=== PATIENT | female | born 1975 | race Hispanic/Latino ===

== ENCOUNTER 2023-09-28 15:20 | Emergency (ER) | payer MEDICAID, SELFPAY ==
[2023-09-28 15:34] VITALS: BP 132/67; PULSE 83; RESP 16; TEMP 36.3; O2SAT 100
--- NOTE | 2023-09-28 15:46 | ED.URI ---
HPI - URI/Sore Throat General Chief Complaint: Upper Respiratory Infection Stated Complaint: Cough/Fever Time Seen by Provider: 09/28/23 15:46 Source: patient Mode of arrival: ambulatory Limitations: no limitations History of Present Illness HPI Narrative: 47-year-old female presented for complaint of cough, nasal congestion, body aches for about 4 days. Denies shortness of breath, wheezing, nausea, vomiting, diarrhea or lethargy. Endorses son with similar symptoms. Takes occasional Robitussin for symptoms. Related Data Home Medications Medication Instructions Recorded Confirmed empagliflozin 25 mg tablet mg 09/28/23 (Jardiance) ergocalciferol (vitamin D2) 1,250 09/28/23 mcg (50,000 unit) capsule insulin detemir U-100 100 unit/mL unit subcut 09/28/23 (3 mL) subcutaneous pen (Levemir FlexPen) levothyroxine 137 mcg tablet mcg 09/28/23 Allergies Allergy/AdvReac Type Severity Reaction Status Date / Time No Known Allergies Allergy Verified 09/28/23 15:40 Review of Systems Review of Systems: CONSTITUTIONAL: reports body aches, fever, chills EYES: Denies visual changes, redness, or discharge. ENT: Reports rhinorrhea, congestion, denies sore throat, or otalgia. CARDIOVASCULAR: Denies chest pain, palpitations, or edema. RESPIRATORY: Reports cough, denies sob, wheezing. GASTROINTESTINAL: Denies abdominal pain, nausea, vomiting, or diarrhea. SKIN: Denies rash, itching, or wounds. MUSCULOSKELETAL: Denies back pain, joint pain NEUROLOGIC: Denies headache, numbness, tingling, or weakness. All systems reviewed & are unremarkable except as noted in HPI and below PMFSH Past Medical History Medical History (Updated 09/28/23 @ 16:24 by Rachael Sherman APRN) No pertinent past medical history Comments At time of signature, I have reviewed and agree with nursing past medical, surgical, social and family history unless otherwise noted. Please see nursing chart for further information. There is no relevant family history pertinent to the presenting complaint Exam Narrative: GENERAL: Well-appearing, in no acute distress. EYES: EOMI. No redness or drainage. Conjunctivae normal. ENT: Mucous membranes pink and moist. No rhinorrhea. TMs normal bilaterally. Throat normal. Uvula midline. NECK: Normal AROM. Supple. CHEST: No respiratory distress. Lungs clear to all redd. HEART: Regular rate and rhythm. No murmur appreciated. ABDOMEN: Soft, nontender, nondistended, normal active bowel sounds. EXTREMITIES: Normal range of motion. No edema. SKIN: Warm, dry, no rash. Capillary refill normal. Normal skin turgor. NEURO: Alert and oriented x3. Gait steady. PSYCH: Normal affect. Course Course Emergency Course: Patient is aware of diagnosis, understands and agrees to treatment plan. Anticipatory guidance given. Patient agrees to follow-up as directed and is aware of reasons to seek care at the emergency department. Portions of this record may have been created with voice recognition software Level of Care: Express Care Visit Vital Signs Vital signs: Vital Signs Temperature 97.4 F L 09/28/23 15:34 Pulse Rate 83 09/28/23 15:34 Respiratory Rate 16 09/28/23 15:34 Blood Pressure 132/67 09/28/23 15:34 Pulse Oximetry 100 09/28/23 15:34 Oxygen Delivery Room Air 09/28/23 15:34 Temperature 97.4 F L 09/28/23 15:34 Pulse Rate 83 09/28/23 15:34 Respiratory Rate 16 09/28/23 15:34 Blood Pressure 132/67 09/28/23 15:34 Pulse Oximetry 100 09/28/23 15:34 Oxygen Delivery Room Air 09/28/23 15:34 MDM - URI/Sore Throat MDM Narrative Medical decision making narrative: negative COVID, flu, results reviewed with patient. Discussed physical exam findings. Advised supportive measures and signs/symptoms to go to the ER. Pt is appropriate for outpt treatment and f/u. patient is primarily [place] Islander-speaking and requested her daughter translate. Declined mcdonald
== END 2023-09-28 16:40 | disposition home or self-care (01) ==
PROVIDERS: Emergency Provider Nurse Practitioner Family; PCP Physician Assistant
DX: J40 Bronchitis, not specified as acute or chronic (principal); Z79.4 Long term (current) use of insulin; Z79.899 Other long term (current) drug therapy; Z20.822 Contact with and (suspected) exposure to COVID-19
CPT/HCPCS: 87426; 87804; 99213; C9803; G0463

== ENCOUNTER 2023-11-23 16:55 | Emergency (ER) | payer MEDICAID, SELFPAY ==
--- NOTE | ~2023-11-23 | CT_ITS ---
EXAMINATION: CT LE LT wo/w con DATE: 11/23/2023 22:10 INDICATION: One month of left ankle pain and swelling TECHNIQUE: High resolution computed tomography (CT) of the left lower leg from above the knee through the midfoot was performed without and with 100 mL Omnipaque-350 intravenous contrast. Additional sag ittal and coronal reconstructions were performed. Automated exposure control and iterative reconstruc tion technique were employed. The dose-length product was 1922.65 mGy-cm. COMPARISON: None FINDINGS: Bone alignment is normal. No fracture. Joint space at the left knee, ankle, mid and hindfoot are norm al. No cortical erosions or periosteal reaction. No joint effusions or other abnormal fluid collectio ns. No evident stenosis along the left popliteal artery, peroneal trunk, peroneal artery or anterior or posterior tibial arteries with three-vessel runoff below the ankle. No evident venous thrombosis a lthough assessment at the above level of the knee is limited by poor contrast desiccation due to the phase of contrast. Mild subcutaneous about the medial and lateral ankle. There is fusiform thickening of the tibialis anterior tendon at the level of the tibiotalar joint line which suggests tendinopath y and/or tendon tear. Soft tissues and remaining muscles and tendons appear unremarkable. IMPRESSION: 1. Fusiform thickening of the distal tibialis anterior tendon at the level of the tibiotalar joint li ne which is suspicious for tendinopathy and/or tendon tear. Assessment of the tendons is however sign ificantly more limited with CT than MRI which would be recommended for more definitive determination. Reviewed, dictated and finalized at location A. RONMENTAL RESEARCH SCIENTIST IMPRESSION: 1. Fusiform thickening of the distal tibialis anterior tendon at the level of t he tibiotalar joint line which is suspicious for tendinopathy and/or tendon tea r. Assessment of the tendons is however significantly more limited with CT than MRI which would be recommended for more definitive determination.
--- NOTE | ~2023-11-23 | XR_ITS ---
EXAMINATION: XR ankle LT min 3V DATE: 11/23/2023 17:16 INDICATION: Left ankle pain and swelling. TECHNIQUE: 4 views of left ankle were obtained. COMPARISON: None. FINDINGS: Bone alignment is normal. No fracture. There is mild osteoarthritis of talonavicular joint. There is ankle soft tissue swelling. IMPRESSION: 1. No fracture. Reviewed, dictated and finalized at location A. RAL RESOURCES ENGINEER IMPRESSION: 1. No fracture.
[2023-11-23 16:57] VITALS: BP 116/47; PULSE 94; RESP 20; TEMP 36.4; O2SAT 100
[2023-11-23 16:58] VITALS: BP 116/47; PULSE 94; RESP 20; TEMP 36.4; O2SAT 100
[2023-11-23 19:59] VITALS: BP 131/74; PULSE 87; RESP 16; O2SAT 100
[2023-11-23] MEDS: IBUPROFEN 600 MG TABLET PO (20:20)
[2023-11-23] MEDS: HYDROcodone/acetaminophen (*CRX) 5-325 MG TABLET 1 TAB PO (20:24)
--- NOTE | 2023-11-23 20:27 | ED.LOWEXIN ---
HPI - Extremity Injury (Lower) General Chief Complaint: Extremity Injury, Lower Stated Complaint: left foot pain Time Seen by Provider: 11/23/23 19:22 Source: patient and family Limitations: no limitations History of Present Illness HPI Narrative: Patient is a 48-year-old female presents to the emergency department accompanied by her for left ankle pain. Patient states the pain has been present for the past 1 month in the anterior aspect of her left ankle, feels like there is a knot there and is overall feeling throbbing, states she has been trying exercise take Tylenol without any significant relief. Patient with her primary care physician on WednesdayNovember 17 and was sent for x-rays on November 18. Patient denies any history of injuries to this region in the past or any history of this pain in the past. Patient states the pain is worse with flexion or extension of her ankle but denies any pain with eversion or inversion. Patient notes that night she was stretching and felt like she might have heard a pop has been having increased pain and then also noticed this morning and she had a little bit of some bruising around the medial aspect of her left foot. Patient denies any specific injuries. Patient denies numbness, weakness, rash, paresthesia, urinary discomfort, any pain or swelling to any other region. patient denies radiation of the discomfort. Related Data Home Medications Medication Instructions Recorded Confirmed empagliflozin 25 mg tablet mg 09/28/23 (Jardiance) ergocalciferol (vitamin D2) 1,250 09/28/23 mcg (50,000 unit) capsule insulin detemir U-100 100 unit/mL unit subcut 09/28/23 (3 mL) subcutaneous pen (Levemir FlexPen) levothyroxine 137 mcg tablet mcg 09/28/23 Allergies Allergy/AdvReac Type Severity Reaction Status Date / Time No Known Allergies Allergy Verified 09/28/23 15:40 Review of Systems Review of Systems: A 10 system review of systems was completed on the patient and is negative except for what is stated in the HPI. Nursing and ancillary documentation was reviewed. [facility] Past Medical History Medical History (Updated 11/23/23 @ 22:49 by Júnior Ricks DO) No pertinent past medical history Comments At time of signature, I have reviewed and agree with nursing past medical, surgical, social and family history unless otherwise noted. Please see the nursing chart for further information. There is no relevant family history pertinent to the presenting complaint. Exam Narrative: CONST: No acute distress. Well nourished. HENMT: Head is normocephalic and atraumatic. Moist mucous membranes. No posterior oropharynx erythema. EYES: No conjunctival icterus, injection, or pallor. PERRL. NECK: No meningeal signs. RESP: Able to speak in full sentences. Normal respiratory effort. CTAB. CARDIO: Regular rate. Regular rhythm. 2+ DP and radial pulses bilaterally. 2+ PT pulses bilaterally. GI: Nondistended. No tenderness to palpation. Soft. : No CVA tenderness to palpation. SKIN: No rashes or lesions noted on exposed skin. NEURO: Oriented x3. Moves all extremities. EXTREM/MSK/BACK: No pedal edema. Small area of swelling overlying the anterior aspect of the left ankle without warmth or erythema, no palpable fluctuance, no crepitus. Small area of ecchymosis overlying the medial aspect of the left foot. Bilateral lower extremities are without laxity with testing of inversion or eversion of the ankles in addition to anterior drawer tesing. compartments are soft bilaterally. Capillary refill is less than 2 seconds in bilateral lower extremities. Range of motion intact with active and passive range of motion of the bilateral ankles however patient does get discomfort with flexion and extension of the ankle. Patient is able to wiggle all her toes in bilateral lower extremities. Negative Diggs test bilaterally. No bony tenderness to palpa
[2023-11-23 21:07] LABS: Basophils Absolute Auto 0.1 K/mm3 (0.0-0.1); Basophils Percent Auto 0.6 % (0.2-1.2); Eosinophils Absolute Auto 0.4 K/mm3 (0-0.3); Eosinophils Percent Auto 4.8 % (0-4.4); Hematocrit 30.9 % (37.0-47.0); Hemoglobin 9.8 g/dL (12.0-15.0); Immature Granulocyte Absolute 0.01 K/mm3 (0.00-0.031); Immature Granulocyte Percent A 0.1 % (0-0.5); Lymphocytes Absolute Auto 2.85 K/mm3 (0.9-3.2); Lymphocytes Percent Auto 33.6 % (18.3-44.2); Mean Corpuscular HGB Conc 31.7 g/dl (32-36); Mean Corpuscular Hemoglobin 25.5 pg (26-34); Mean Corpuscular Volume 80.5 fl (80-100); Mean Platelet Volume 10.9 fl (7.4-10.4); Monocytes Absolute Auto 0.6 K/mm3 (0.1-0.6); Monocytes Percent Auto 7.6 % (2.6-8.5); Neutrophils Absolute Auto 4.5 K/mm3 (1.3-6.7); Neutrophils Percent Auto 53.3 % (45.5-73.1); Platelet Count Result 265 k/mm3 (150-375); Red Blood Count 3.84 M/mm3 (4.2-5.4); Red Cell Distribution Width 14.4 % (11.5-14.5); White Blood Count 8.5 K/mm3 (4.5-10.0)
[2023-11-23 21:24] LABS: D Dimer 0.95 ug/mL (<0.48)
[2023-11-23 21:39] LABS: Alanine Aminotransferase 34 U/L (6-35); Albumin Level 3.7 g/dL (3.5-5.1); Alkaline Phosphatase 183 U/L (38-126); Anion Gap 4 mmol/L (8-16); Aspartate Amino Transferase 49 U/L (14-36); Bilirubin,Total 0.4 mg/dL (0.2-1.3); Blood Urea Nitrogen 11 mg/dL (7-17); CRP 0.7 mg/dL (<1.0); Calcium 8.7 mg/dL (8.4-10.2); Carbon Dioxide 29 mmol/L (22-30); Chloride 102 mmol/L (98-107); Creatine Kinase 57 U/L (30-135); Estimated CRCL calculation 103 ml/min; Estimated Glomerular Filt Rate > 60; Glucose 159 mg/dL (65-110); Potassium 3.9 mmol/L (3.4-5.0); Sodium 135 mmol/L (137-145)
[2023-11-23 21:47] LABS: SPREG INTERNAL CONTROL Positive; Serum Qual hCG Negative
--- NOTE | 2023-11-23 23:08 | PC.NURSE ---
Pt declined OCL. Dr Ricks at bedside discussing at length pt's options.
--- NOTE | 2023-11-23 23:16 | PC.NURSE ---
Pt demonstrated walking with crutches.
[2023-11-23 23:25] VITALS: BP 132/84; PULSE 68; RESP 14; O2SAT 98
== END 2023-11-23 23:27 | disposition home or self-care (01) ==
PROVIDERS: Emergency Provider Student in an Organized Health Care Education/Training Program; PCP Physician Assistant
DX: M76.812 Anterior tibial syndrome, left leg (principal)
CPT/HCPCS: 36415; 73610; 73702; 80053; 82550; 83605; 84703; 85025; 85380; 86140; 99284; A9270; Q9967

== ENCOUNTER 2024-03-13 16:23 | Emergency (ER) | payer MEDICAID, SELFPAY ==
[2024-03-13 16:31] VITALS: BP 123/67; PULSE 101; RESP 16; TEMP 37.1; O2SAT 100
[2024-03-13 16:35] VITALS: BP 123/67; PULSE 101; RESP 16; TEMP 37.1; O2SAT 100
--- NOTE | 2024-03-13 17:01 | ED.EYEPROB ---
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 Does report some intermittent blurred vision that typically resolves when she washes her face. She has been using some [id number] drops without relief. She does report some allergy symptoms such as congestion, rhinorrhea, sneezing for which she has been taking Benadryl. Related Data Home Medications Medication Instructions Recorded Confirmed ergocalciferol (vitamin D2) 1,250 1,250 mcg DIRECTED 09/28/23 03/13/24 mcg (50,000 unit) capsule insulin detemir U-100 100 unit/mL 100 unit subcut DIRECTED 09/28/23 03/13/24 (3 mL) subcutaneous pen (Levemir FlexPen) levothyroxine 137 mcg tablet 137 mcg DIRECTED 09/28/23 03/13/24 atorvastatin 40 mg tablet 40 mg DIRECTED 03/13/24 03/13/24 Allergies Allergy/AdvReac Type Severity Reaction Status Date / Time No Known Allergies Allergy Verified 03/09/24 15:33 Review of Systems Review of Systems: CONSTITUTIONAL: Denies body aches, fever, chills, or sweats. EYES: + bilateral burning, crusting, itching, redness ENT: Denies sore throat, or otalgia.+ rhinorrhea, congestion, sneezing CARDIOVASCULAR: Denies chest pain, palpitations, or edema. RESPIRATORY: Denies cough or dyspnea. GASTROINTESTINAL: Denies abdominal pain, nausea, vomiting, or diarrhea. GENITOURINARY: Denies dysuria or hematuria. SKIN: Denies rash, itching, or wounds. MUSCULOSKELETAL: Denies back pain, joint pain, or myalgia. NEUROLOGIC: Denies headache, numbness, tingling, or weakness. PSYCH: Denies depression or anxiety. [facility] Past Medical History Medical History No pertinent past medical history Social History Social History Smoking status: Never smoker Comments At time of signature, I have reviewed and agree with nursing past medical, surgical, social and family history unless otherwise noted. Please see nursing chart for further information. There is no relevant family history pertinent to the presenting complaint Exam Narrative: GENERAL: Well-appearing, well-nourished, and in no acute distress. HEAD: Normocephalic, atraumatic. EYES: EOMI. PERRL. Scantly injected conjunctiva bilaterally. No drainage noted. Lids and lashes normal. ENT: Mucous membranes pink and moist. Nares clear. No rhinorrhea. NECK: Normal AROM. CHEST: No respiratory distress. EXTREMITIES: Normal range of motion. No edema. SKIN: Warm, dry, no rash. Capillary refill normal. Normal skin turgor. NEURO: No focal deficits. Alert and oriented x3. Gait steady. PSYCH: Normal affect. No signs of depression or anxiety. Course Course Level of Care: Express Care Visit Vital Signs Vital signs: Vital Signs Temperature 98.7 F 03/13/24 16:31 Pulse Rate 101 H 03/13/24 16:31 Respiratory Rate 16 03/13/24 16:31 Blood Pressure 123/67 03/13/24 16:31 Pulse Oximetry 100 03/13/24 16:31 Oxygen Delivery Room Air 03/13/24 16:31 Temperature 98.7 F 03/13/24 16:35 Pulse Rate 101 H 03/13/24 16:35 Respiratory Rate 16 03/13/24 16:35 Blood Pressure 123/67 03/13/24 16:35 Pulse Oximetry 100 03/13/24 16:35 Oxygen Delivery Room Air 03/13/24 16:35 Reviewed MDM - Eye Problem MDM Narrative Medical decision making narrative: Patient's eye symptoms are likely due to allergic conjunctivitis. Prescription for Zaditor sent to pharmacy. Recommend daily antihistamine instead of Benadryl such as Zyrtec, Claritin, or Radha. Andrew coto
== END 2024-03-13 17:10 | disposition home or self-care (01) ==
PROVIDERS: Emergency Provider Nurse Practitioner; PCP Physician Assistant
DX: H10.33 Unspecified acute conjunctivitis, bilateral (principal); J30.2 Other seasonal allergic rhinitis
CPT/HCPCS: 99213; G0463

== ENCOUNTER 2024-03-22 07:12 | Outpatient (CLI) | payer MEDICAID, SELFPAY ==
--- NOTE | ~2024-03-22 | CT_ITS ---
CT of the Abdomen and Pelvis: Indication: Abdominal pain Technique: 2.5 mm axial scans were obtained through the abdomen and pelvis following intravenous adm inistration of 100 cc of Omnipaque 350. Dose reduction technique was used on this scan by utilizing a utomated exposure control and iterative reconstruction technique. The dose-length product (DLP) was 3 43.75 mGy-cm. Findings: Scans through the lung bases are unremarkable. The liver, spleen, pancreas, gallbladder, adrenals and kidneys are within normal limits. There are at herosclerotic calcifications of the aorta. No lymphadenopathy. No bowel obstruction or bowel wall thickening. There is no evidence to suggest acute appendicitis. Images through the pelvis were performed. Uterine fibroids are present. Urinary bladder unremarkable. No ascites. Impression: Uterine fibroids, otherwise unremarkable exam. Reviewed, dictated and finalized at location M. Impression: Uterine fibroids, otherwise unremarkable exam.
[2024-03-22 07:34] LABS: Estimated Glomerular Filt Rate > 60
== END 2024-03-22 07:13 | disposition home or self-care (01) ==
PROVIDERS: PCP Physician Assistant; Visit Provider Nurse Practitioner
DX: R10.31 Right lower quadrant pain (principal); G89.29 Other chronic pain; D25.9 Leiomyoma of uterus, unspecified
CPT/HCPCS: 74177; Q9967

== ENCOUNTER 2025-01-25 08:30 | Observation (INO) | payer MEDICAID, SELFPAY ==
[2025-01-25] VITALS (14 sets, daily range): BP systolic 113–142; BP diastolic 44–69; PULSE 65–102; RESP 15–20; TEMP 36.3–37.2; O2SAT 96–100; BMI 28.4
--- NOTE | ~2025-01-25 | US_ITS ---
US pelvic complete Ordering provider: Dangelo Nieves MD History: . Severe anemia and h/o fibroids. . Comparison: None. Technique: Transabdominal and endovaginal ultrasound of the pelvis (Doppler ultrasound interrogation techniques used as needed for this exam.) FINDINGS: CERVIX: Normal. UTERUS: Measures 12.2x 5.2x 7.3 cm in length which is within normal limits and is anteverted. Comple x mass is seen which disrupts the endometrial stripe suggestive of a fibroid measuring 3.3 x 3.3 x 4. 2 cm.. ENDOMETRIUM: Normal in thickness measuring 7 mm. No endometrial masses, cysts or fluid. CUL DE SAC: No free fluid. RIGHT OVARY: Not seen. LEFT OVARY: Normal in size measuring 4x 2.5x 2.5 Normal echotexture. Doppler vascular flow present. ADNEXA: Normal. No mass. IMPRESSION: Fibroid uterus. Follow-up advised. Otherwise, normal pelvic ultrasound. Reviewed, dictated and finalized at location A.
--- OUTSIDE RECORDS SUMMARY | 2025-01-25 08:47 | XMS_ITS | Data Portability ---
Author Organization [facility] Address [address] [place] [address] Care Team Providers [facility] Consultant Name Role Phone SHARMAINE BUTLER Primary Care Provider [phone] Assessment Encounter Date Assessment Date Assessment LastModified by Organization Details LastModified Time 03/14/2024 03/14/2024 josy nurse left vm to call back suyapa Not available 03/14/2024 15:25:41 Plan of Treatment Reminders Order Date Submit Date Provider Last Modified By Organization Details Last Modified Time Details Appointments ANY 15 2024 02:45P SYED MALONEY Not available Not available Not available Lab CMP, serum or plasma 2023 024 PAULINO Marie, [address], [place], [address], 05/16/2024 23:07:47 lipid panel, serum 2023 024 PAULINO Marei, [address], [place], [address], 05/16/2024 23:07:46 iron + total iron-bind ing capacity (TIBC), serum 2023 024 PAULINO Marie, [address], [address], [place], [address], 05/17/2024 10:15:21 ferritin, serum or plasma 2023 024 PAULINO Marie, [address], [address], [place], [address], 05/17/2024 10:15:21 CBC w/ auto diff 2023 024 [email or web address] [facility], [address], [address] [address], [place], [address], 05/16/2024 23:07:48 HbA1c (hemoglob in A1c), blood 2023 024 [email or web address] In-Office Order, Internal Use Only DO Not Attach Compendium DO Not Attach Compendium, Do Not Delete/merge, [id number] 03/15/2024 07:37:33 Referral physical therapist referral 2023 024 [facility], [address] [place], [address], 04/17/2024 10:47:58 physical therapist referral 2023 024 [facility], [address] [facility], [place], [address], 02/18/2024 17:16:07 Procedures None recorded. Surgeries None recorded. Imaging None recorded. Medication Orders Jardiance 25 mg tablet 2023 024 [email or web address], [address] [place] [address], [id number], 01/17/2025 17:07:48 ibuprofen 600 mg tablet 2023 024 [email or web address], [address] [place] [address], [id number], 05/18/2024 17:17:34 Kenalog 40 mg/mL suspensio n for injection 2023 024 [email or web address] Not available 04/19/2024 15:09:53 azelastin e 0.05 % eye drops 2023 024 [email or web address], [address] [place] [address], [id number], 03/15/2024 11:24:33 ibuprofen 600 mg tablet 2023 024 [facility], [address] [place], [place], [id number], 02/24/2024 17:10:27 Patient TargetsNo targets recorded. Patient Instructions Encounter Date Encounter Id Patient Instructions Last Modified By Organization Details Last Modified Time 03/14/2024 [id number] A healthy lifestyle: care instructions Not available 03/15/2024 07:39:17 05/15/2024 [id number] A healthy lifestyle: care instructions Not available 05/15/2024 16:07:05 Reason for Referral Physical Therapist Referral for Peroneal tendinitis of left lower limb Referring Physician: Ryann Lomas, Encounter Date: 02/18/2024 Physical Therapist Referral for Peroneal tendinitis of left lower limb Referring Physician: Ryann Lomas, Encounter Date: 03/30/2024 Results Created Date Observation Date Name Description Value Unit Range Abnormal Flag Note LastModifiedBy Organization Detail LastModifiedTime 03/15/2003/15/2024 HbA1c (hemo globi n A1c), blood HbA1c 10.1 Not Available In-Office Order Internal Use Only DO Not Attach Compendium DO Not Attach Compendium, Do Not Delete/merge, [id number] 03/15/2024 07:37:14 04/17/2004/17/2024 Hemog lobin A1c/H emogl obin. total in Blood hemoglobin A1C, POC 11.2 % Hemog lobin A1C, POC 11.2 % Not Available Not Available 01/23/2025 04:20:30 05/15/2005/16/2024 LIPID PANEL cholesterol, total 251 mg/dL 100-19 9 above high normal Not Available [facility] Department [address] [place], [address], 05/16/2024 23:07:46 05/15/20 24 05/16/2024 LIPID PANEL triglyceride s 121 mg/dL 0-149 Not Available [facility] Department [address] [place], [address], 05/16/2024 23:07:46 05/15/20 24 05/16/2024 LIPID PANEL HDL cholesterol 51 mg/dL 40-999 Not Available [facility] Department [address] [place], [address], 05/16/2024 23:07:46 05/15/20 24 05/16/2024 LIPID PANEL VLDL cholesterol jamari 24 mg/dL 5-40 Not Available [facility] Department [address] [place], [address], 05/16/2024 23:07:46 05/15/20 24 05/16/2024 LIPID PANEL LDL chol calc ([facility]) 192 mg/dL 0-99 above high normal Not Available [facility] Department [address] [place], [address], 05/16/2024 23:07:46 05/15/20 24 05/16/2024 COMP. METAB OLIC PANEL (14) glucose 90 mg/dL 70-99 Not Available [facility] Department [address] [place], [address], 05/16/2024 23:07:47 05/15/20 24 05/16/2024 COMP. METAB OLIC PANEL (14) BUN 13 mg/dL 6-24 Not Available [facility] Department [address] [place], [address], 05/16/2024 23:07:47 05/15/20 24 05/16/2024 COMP. METAB OLIC PANEL (14) creatinine 0.76 mg/dL 0.76-1 .27 Not Available [facility] Department [address] [place], [address], 05/16/2024 23:07:47 05/15/20 24 05/16/2024 COMP. METAB OLIC PANEL (14) eGFR 98 >=60 Units for eGFR value s are mL/mi n/1.7 3 The eGFR Calcu latio n has not been valid ated for patie nts under the age of 18. If test resul ts are displ ayed for a patie nt under the age of 18, disre idalia that value . Not Available [facility] Department [address] [place] [address], [address], 05/16/2024 23:07:47 05/15/20 24 05/16/2024 COMP. METAB OLIC PANEL (14) BUN/creatini ne ratio 17 9-23 Not Available [facility] Department [address] [place] [address], [address], 05/16/2024 23:07:47 05/15/20 24 05/16/2024 COMP. METAB OLIC PANEL (14) sodium 137 mmol/ L 134-14 4 Not Available [facility] Department [address] [place] [address], [address], 05/16/2024 23:07:47 05/15/20 24 05/16/2024 COMP. METAB OLIC PANEL (14) potassium 4.7 mmol/ L 3.5-5. 2 Not Available [facility] Department [address] [place] [address], [address], 05/16/2024 23:07:47 05/15/20 24 05/16/2024 COMP. METAB OLIC PANEL (14) chloride 100 mmol/ L 96-106 Not Available [facility] Department [address] [place] [address], [address], 05/16/2024 23:07:47 05/15/20 24 05/16/2024 COMP. METAB OLIC PANEL (14) carbon dioxide, total 24 mmol/ L 20-29 Not Available [facility] Department [address] [place] [address], [address], 05/16/2024 23:07:47 05/15/20 24 05/16/2024 COMP. METAB OLIC PANEL (14) calcium 9.1 mg/dL 8.7-10 .2 Not Available [facility] Department [address] [place], [address], 05/16/2024 23:07:47 05/15/20 24 05/16/2024 COMP. METAB OLIC PANEL (14) protein, total 6.8 g/dL 6.0-8. 5 Not Available [facility] Department [address] [place], [address], 05/16/2024 23:07:47 05/15/20 24 05/16/2024 COMP. METAB OLIC PANEL (14) albumin 4.2 g/dL 3.9-4. 9 Not Available [facility] Department [address] [place], [address], 05/16/2024 23:07:47 05/15/20 24 05/16/2024 COMP. METAB OLIC PANEL (14) globulin, total 2.6 g/dL 1.5-4. 5 Not Available [facility] Department [address] [place], [address], 05/16/2024 23:07:47 05/15/20 24 05/16/2024 COMP. METAB OLIC PANEL (14) A/G ratio 1.6 1.2-2. 2 Not Available [facility] Department [address] [place], [address], 05/16/2024 23:07:47 05/15/20 24 05/16/2024 COMP. METAB OLIC PANEL (14) bilirubin, total 0.2 mg/dL 0.0-1. 2 Not Available [facility] Department [address] [place], [address], 05/16/2024 23:07:47 05/15/20 24 05/16/2024 COMP. METAB OLIC PANEL (14) alkaline phosphatase 195 IU/L 44-121 above high normal Not Available [facility] Department [address] [place], [address], 05/16/2024 23:07:47 05/15/20 24 05/16/2024 COMP. METAB OLIC PANEL (14) AST (SGOT) 25 IU/L 0-40 Not Available [facility] Department [address] [place], [address], 05/16/2024 23:07:47 05/15/20 24 05/16/2024 COMP. METAB OLIC PANEL (14) ALT (SGPT) 23 IU/L 0-32 Not Available [facility] Department [address] [place], [address], 05/16/2024 23:07:47 05/15/20 24 05/16/2024 CBC WITH DIFFE RENTI AL/PL ATELE T WBC 6.9 x10e3 /uL 3.4-10 .8 Not Available [facility] Department [address] [place], [address], 05/16/2024 23:07:48 05/15/20 24 05/16/2024 CBC WITH DIFFE RENTI AL/PL ATELE T RBC 4.23 x10e6 /uL 3.77-5 .28 Not Available [facility] Department [address] [place], [address], 05/16/2024 23:07:48 05/15/20 24 05/16/2024 CBC WITH DIFFE RENTI AL/PL ATELE T hemoglobin 8.9 g/dL 11.1-1 5.9 below low normal Not Available [facility] Department [address] [place], [address], 05/16/2024 23:07:48 05/15/20 24 05/16/2024 CBC WITH DIFFE RENTI AL/PL ATELE T hematocrit 33.3 % 34.0-4 6.6 below low normal Not Available [facility] Department [address] [place], [address], 05/16/2024 23:07:48 05/15/20 24 05/16/2024 CBC WITH DIFFE RENTI AL/PL ATELE T MCV 79 fL 79-97 Not Available [facility] Department [address] [place], [address], 05/16/2024 23:07:48 05/15/20 24 05/16/2024 CBC WITH DIFFE RENTI AL/PL ATELE T MCH 21.0 pg 26.6-3 3.0 below low normal Not Available [facility] Department [address] [place], [address], 05/16/2024 23:07:48 05/15/20 24 05/16/2024 CBC WITH DIFFE RENTI AL/PL ATELE T MCHC 26.7 g/dL 31.5-3 5.7 below low normal Not Available [facility] Department [address] [place], [address], 05/16/2024 23:07:48 05/15/20 24 05/16/2024 CBC WITH DIFFE RENTI AL/PL ATELE T RDW 16.2 % 11.5-1 4.5 above high normal Not Available [facility] Department [address] [place], [address], 05/16/2024 23:07:48 05/15/20 24 05/16/2024 CBC WITH DIFFE RENTI AL/PL ATELE T platelets 326 x10e3 /uL 150-45 0 Not Available [facility] Department [address] [place], [address], 05/16/2024 23:07:48 05/15/20 24 05/16/2024 CBC WITH DIFFE RENTI AL/PL ATELE T neutrophils 61 % notest b. Not Available [facility] Department [address] [place], [address], 05/16/2024 23:07:48 05/15/20 24 05/16/2024 CBC WITH DIFFE RENTI AL/PL ATELE T lymphs 29 % notest b. Not Available [facility] Department [address] [place], [address], 05/16/2024 23:07:48 05/15/20 24 05/16/2024 CBC WITH DIFFE RENTI AL/PL ATELE T monocytes 6 % notest b. Not Available [facility] Department [address] [place], [address], 05/16/2024 23:07:48 05/15/20 24 05/16/2024 CBC WITH DIFFE RENTI AL/PL ATELE T eos 3 % notest b. Not Available [facility] Department [address] [place], [address], 05/16/2024 23:07:48 05/15/20 24 05/16/2024 CBC WITH DIFFE RENTI AL/PL ATELE T basos 1 % notest b. Not Available [facility] Department [address] [place], [address], 05/16/2024 23:07:48 05/15/20 24 05/16/2024 CBC WITH DIFFE RENTI AL/PL ATELE T neutrophils (absolute) 4.2 x10e3 /uL 1.4-7. 0 Not Available [facility] Department [address] [place], [address], 05/16/2024 23:07:48 05/15/20 24 05/16/2024 CBC WITH DIFFE RENTI AL/PL ATELE T lymphs (absolute) 2.0 x10e3 /uL 0.7-3. 1 Not Available [facility] Department [address] [place], [address], 05/16/2024 23:07:48 05/15/20 24 05/16/2024 CBC WITH DIFFE RENTI AL/PL ATELE T monocytes(ab solute) 0.4 x10e3 /uL 0.1-0. 9 Not Available [facility] Department [address] [place], [address], 05/16/2024 23:07:48 05/15/20 24 05/16/2024 CBC WITH DIFFE RENTI AL/PL ATELE T eos (absolute) 0.2 x10e3 /uL 0.0-0. 4 Not Available [facility] Department [address] [place], [address], 05/16/2024 23:07:48 05/15/20 24 05/16/2024 CBC WITH DIFFE RENTI AL/PL ATELE T baso (absolute) 0.1 x10e3 /uL 0.0-0. 2 Not Available [facility] Department [address] [place], [address], 05/16/2024 23:07:48 05/15/20 24 05/16/2024 CBC WITH DIFFE RENTI AL/PL ATELE T immature granulocytes 0.1 % notest b. Not Available [facility] Department [address] [place], [address], 05/16/2024 23:07:48 05/15/20 24 05/16/2024 CBC WITH DIFFE RENTI AL/PL ATELE T immature grans (abs) 0.0 x10e3 /uL 0.0-0. 1 Not Available [facility] Department [address] [place], [address], 05/16/2024 23:07:48 05/15/20 24 05/16/2024 CBC WITH DIFFE RENTI AL/PL ATELE T NRBC 0 % 0-0 Not Available [facility] Department [address] [place], [address], 05/16/2024 23:07:48 05/15/20 24 05/17/2024 IRON AND TIBC iron bind.cap.(TI BC) 458 ug/dL 250-45 0 above high normal Not Available [facility] ([facility]) [address] [facility], [place], [address], 05/17/2024 10:15:21 05/15/20 24 05/17/2024 IRON AND TIBC UIBC 445 ug/dL 131-42 5 above high normal Not Available [facility] ([facility]) [address] [place], [address], 05/17/2024 10:15:21 05/15/20 24 05/17/2024 IRON AND TIBC iron 13 ug/dL 27-159 below low normal Not Available [facility] ([facility]) [address] [place], [address], 05/17/2024 10:15:21 05/15/20 24 05/17/2024 IRON AND TIBC iron saturation 3 % 15-55 alert low Not Available [facility] ([facility]) [address] [place], [address], 05/17/2024 10:15:21 05/15/20 24 05/17/2024 ARNULFO TIN ferritin 6 NG/mL 15-150 below low normal Not Available [facility] ([facility]) [address] [place], [address], 05/17/2024 10:15:21 01/24/20 25 01/24/2025 LIPID PANEL cholesterol, total 201 mg/dL 100-19 9 above high normal Not Available [facility] Department [address] [place], [address], 01/24/2025 23:11:32 01/24/20 25 01/24/2025 LIPID PANEL triglyceride s 316 mg/dL 0-149 above high normal Not Available [facility] Department [address] [place], [address], 01/24/2025 23:11:32 01/24/20 25 01/24/2025 LIPID PANEL HDL cholesterol 39 mg/dL 40-999 below low normal Not Available [facility] Department [address] [place], [address], 01/24/2025 23:11:32 01/24/20 25 01/24/2025 LIPID PANEL VLDL cholesterol jamari 63 mg/dL 5-40 above high normal Not Available [facility] Department [address] [place] [address], [address], 01/24/2025 23:11:32 01/24/20 25 01/24/2025 LIPID PANEL LDL chol calc (nih) 146 mg/dL 0-99 above high normal Not Available [facility] Department [address] [place] [address], [address], 01/24/2025 23:11:32 01/24/20 25 01/24/2025 COMP. METAB OLIC PANEL (14) glucose 199 mg/dL 70-99 above high normal Not Available [facility] Department [address] [place] [address], [address], 01/24/2025 23:11:33 01/24/20 25 01/24/2025 COMP. METAB OLIC PANEL (14) BUN 17 mg/dL 6-24 Not Available [facility] Department [address] [place] [address], [address], 01/24/2025 23:11:33 01/24/20 25 01/24/2025 COMP. METAB OLIC PANEL (14) creatinine 0.66 mg/dL 0.76-1 .27 below low normal Not Available [facility] Department [address] [place] [address], [address], 01/24/2025 23:11:33 01/24/20 25 01/24/2025 COMP. METAB OLIC PANEL (14) eGFR 109 >=60 Units for eGFR value s are mL/mi n/1.7 3 The eGFR Calcu latio n has not been valid ated for patie nts under the age of 18. If test resul ts are displ ayed for a patie nt under the age of 18, disre idalia that value . Not Available [facility] Department [address] [place] [address], [address], 01/24/2025 23:11:33 01/24/20 25 01/24/2025 COMP. METAB OLIC PANEL (14) BUN/creatini ne ratio 26 9-23 above high normal Not Available [facility] Department [address] [place], [address], 01/24/2025 23:11:33 01/24/20 25 01/24/2025 COMP. METAB OLIC PANEL (14) sodium 135 mmol/ L 134-14 4 Not Available [facility] Department [address] [place], [address], 01/24/2025 23:11:33 01/24/20 25 01/24/2025 COMP. METAB OLIC PANEL (14) potassium 3.8 mmol/ L 3.5-5. 2 Not Available [facility] Department [address] [place] [address], [address], 01/24/2025 23:11:33 01/24/20 25 01/24/2025 COMP. METAB OLIC PANEL (14) chloride 99 mmol/ L 96-106 Not Available [facility] Department [address] [place], [address], 01/24/2025 23:11:33 01/24/20 25 01/24/2025 COMP. METAB OLIC PANEL (14) carbon dioxide, total 20 mmol/ L 20-29 Not Available [facility] Department [address] [place], [address], 01/24/2025 23:11:33 01/24/20 25 01/24/2025 COMP. METAB OLIC PANEL (14) calcium 8.9 mg/dL 8.7-10 .2 Not Available [facility] Department [address] [place], [address], 01/24/2025 23:11:33 01/24/20 25 01/24/2025 COMP. METAB OLIC PANEL (14) protein, total 6.9 g/dL 6.0-8. 5 Not Available [facility] Department [address] [place], [address], 01/24/2025 23:11:33 01/24/20 25 01/24/2025 COMP. METAB OLIC PANEL (14) albumin 4.2 g/dL 3.9-4. 9 Not Available [facility] Department [address] [place], [address], 01/24/2025 23:11:33 01/24/20 25 01/24/2025 COMP. METAB OLIC PANEL (14) globulin, total 2.7 g/dL 1.5-4. 5 Not Available [facility] Department [address] [place], [address], 01/24/2025 23:11:33 01/24/20 25 01/24/2025 COMP. METAB OLIC PANEL (14) A/G ratio 2.0 1.2-2. 2 Not Available [facility] Department [address] [place], [address], 01/24/2025 23:11:33 01/24/20 25 01/24/2025 COMP. METAB OLIC PANEL (14) bilirubin, total 0.3 mg/dL 0.0-1. 2 Not Available [facility] Department [address] [place], [address], 01/24/2025 23:11:33 01/24/20 25 01/24/2025 COMP. METAB OLIC PANEL (14) alkaline phosphatase 198 IU/L 44-121 above high normal Not Available [facility] Department [address] [place], [address], 01/24/2025 23:11:33 01/24/20 25 01/24/2025 COMP. METAB OLIC PANEL (14) AST (SGOT) 26 U/L 0-40 Not Available [facility] Department [address] [place], [address], 01/24/2025 23:11:33 01/24/20 25 01/24/2025 COMP. METAB OLIC PANEL (14) ALT (SGPT) 19 IU/L 0-32 Not Available [facility] Department [address] [place], [address], 01/24/2025 23:11:33 01/24/2001/25/2025 CBC WITH DIFFE RENTI AL/PL ATELE T WBC 8.0* x10e3 /uL 3.4-10 .8 Not Available [facility] Department [address] [place], [address], 01/25/2025 00:12:05 01/24/2001/25/2025 CBC WITH DIFFE RENTI AL/PL ATELE T RBC 4.33* x10e6 /uL 3.77-5 .28 Not Available [facility] Department [address] [place], [address], 01/25/2025 00:12:05 01/24/2001/25/2025 CBC WITH DIFFE RENTI AL/PL ATELE T hemoglobin 7.0* g/dL 11.1-1 5.9 panic low RESUL TS VERIF IED AND GROSSMAN D TO DR SIDDIQI SHARMAINE BY Carmenza Elmore i, MLT AT 2156 ON 01/24. Not Available [facility] Department [address] [place], [address], 01/25/2025 00:12:05 01/24/2001/25/2025 CBC WITH DIFFE RENTI AL/PL ATELE T hematocrit 27.9* % 34.0-4 6.6 below low normal Not Available [facility] Department [address] [place], [address], 01/25/2025 00:12:05 01/24/2001/25/2025 CBC WITH DIFFE RENTI AL/PL ATELE T MCV 64* fL 79-97 below low normal Not Available [facility] Department [address] [place], [address], 01/25/2025 00:12:05 01/24/2001/25/2025 CBC WITH DIFFE RENTI AL/PL ATELE T MCH 16.2* pg 26.6-3 3.0 below low normal Not Available [facility] Department [address] [place], [address], 01/25/2025 00:12:05 01/24/2001/25/2025 CBC WITH DIFFE RENTI AL/PL ATELE T MCHC 25.1* g/dL 31.5-3 5.7 below low normal Not Available [facility] Department [address] [place], [address], 01/25/2025 00:12:05 01/24/2001/25/2025 CBC WITH DIFFE RENTI AL/PL ATELE T RDW 21.1* % 11.5-1 4.5 above high normal Not Available [facility] Department [address] [place], [address], 01/25/2025 00:12:05 01/24/2001/25/2025 CBC WITH DIFFE RENTI AL/PL ATELE T platelets 263* x10e3 /uL 150-45 0 Not Available [facility] Department [address] [place], [address], 01/25/2025 00:12:05 01/24/2001/25/2025 CBC WITH DIFFE RENTI AL/PL ATELE T neutrophils 65* % notest b. Not Available [facility] Department [address] [place], [address], 01/25/2025 00:12:05 01/24/2001/25/2025 CBC WITH DIFFE RENTI AL/PL ATELE T lymphs 26* % notest b. Not Available [facility] Department [address] [place], [address], 01/25/2025 00:12:05 01/24/2001/25/2025 CBC WITH DIFFE RENTI AL/PL ATELE T monocytes 5* % notest b. Not Available [facility] Department [address] [place], [address], 01/25/2025 00:12:05 01/24/2001/25/2025 CBC WITH DIFFE RENTI AL/PL ATELE T eos 3* % notest b. Not Available [facility] Department [address] [place], [address], 01/25/2025 00:12:05 01/24/2001/25/2025 CBC WITH DIFFE RENTI AL/PL ATELE T basos 1* % notest b. Not Available [facility] Department [address] [place], [address], 01/25/2025 00:12:05 01/24/2001/25/2025 CBC WITH DIFFE RENTI AL/PL ATELE T neutrophils (absolute) 5.2* x10e3 /uL 1.4-7. 0 Not Available [facility] Department [address] [place], [address], 01/25/2025 00:12:05 01/24/2001/25/2025 CBC WITH DIFFE RENTI AL/PL ATELE T lymphs (absolute) 2.1* x10e3 /uL 0.7-3. 1 Not Available [facility] Department [address] [place], [address], 01/25/2025 00:12:05 01/24/2001/25/2025 CBC WITH DIFFE RENTI AL/PL ATELE T monocytes(ab solute) 0.4* x10e3 /uL 0.1-0. 9 Not Available [facility] Department [address] [place], [address], 01/25/2025 00:12:05 01/24/2001/25/2025 CBC WITH DIFFE RENTI AL/PL ATELE T eos (absolute) 0.3* x10e3 /uL 0.0-0. 4 Not Available [facility] Department [address] [place], [address], 01/25/2025 00:12:05 01/24/20 25 01/25/2025 CBC WITH DIFFE RENTI AL/PL ATELE T baso (absolute) 0.1* x10e3 /uL 0.0-0. 2 Not Available [facility] Department [address] [place], [address], 01/25/2025 00:12:05 01/24/20 25 01/25/2025 CBC WITH DIFFE RENTI AL/PL ATELE T immature granulocytes 0.2* % notest b. Not Available [facility] Department [address] [place], [address], 01/25/2025 00:12:05 01/24/20 25 01/25/2025 CBC WITH DIFFE RENTI AL/PL ATELE T immature grans (abs) 0.0* x10e3 /uL 0.0-0. 1 Not Available [facility] Department [address] [place], [address], 01/25/2025 00:12:05 01/24/20 25 01/25/2025 CBC WITH DIFFE RENTI AL/PL ATELE T NRBC 0* % 0-0 Not Available [facility] Department [address] [place], [address], 01/25/2025 00:12:05 01/24/2001/23/2025 HbA1c (hemo globi n A1c), blood HbA1c 9.0 Not Available In-Office Order Internal Use Only DO Not Attach Compendium DO Not Attach Compendium, Do Not Delete/merge, [id number] 01/23/2025 16:16:43 03/22/20 24 03/22/2024 CT, abdom en + pelvi s, w/ contr ast No observ ation record ed. [address] [facility] [address], [place], [address], 03/23/2024 12:32:26 Result Notes None recorded. Problems Name Problem SNOMED Code Status Onset Date Resolution Date Notes Provider Name and Address Organization Details Recorded Time Mass of left breast [id number] [id number] Completed 201709/22/2018 JESSICA Castillo NP Attn: Accounting ,[address] [facility], [place], [address] , [facility] 8 14:22:16 Mammogra phy abnormal [id number] Completed 09/22/2018 JESSICA Castillo NP Attn: Accounting ,[address] [place], [address] , [facility] 8 14:21:56 Acute sinusiti s [id number] Completed 09/20/2018 JESSICA Castillo NP Attn: Accounting ,[address] [place], [address] , [facility] 8 11:33:52 Uncontro lled type 1 diabetes mellitus 515447474 Completed 09/20/2018 JESSICA Castillo NP Attn: Accounting ,[address] [place], [address] , [facility] 8 11:39:44 Pain of left ankle joint [id number] Active 2023 SYED RICE Attn: Accounting ,[address] [facility], [place], [address] , [place] [facility] 4 08:35:45 Colonosc opy Active 2023 needs repeat in 2028 SYED RICE Attn: Accounting ,[address] [place], [address] , [place] [facility] 4 15:36:32 Insulin treated type 2 diabetes mellitus [id number] Active 2023 SYED RICE Attn: Accounting ,[address] [place], [address] , [place] [facility] 4 12:05:24 Iron deficien cy anemia [id number] Active 2023 resolved SYED RICE Attn: Accounting ,[address] [place], [address] , [facility] 4 16:22:58 Menorrha ayesha [id number] Active 2023 SYED RICE Attn: Accounting ,[address] [place], [address] , [facility] 4 16:23:21 Allergic rhinitis [id number] Completed 09/22/2018 JESSICA Castillo NP Attn: Accounting ,[address] [place], [address] , [facility] 8 14:22:00 Missed period [id number] Completed 09/20/2018 JESSICA Castillo NP Attn: Accounting ,[address] [place], [address] , [facility] 8 11:34:08 Milk of calcium calcific ation 147896574 Completed 09/20/2018 JESSICA Castillo NP Attn: Accounting ,[address] [place], [address] , [place] [facility] 8 11:34:02 Milk of calcium calcific ation 730654156 Completed Darshana Gustafson PA-C Attn: Accounting ,[address] [place], [address] , [place] [facility] 6 10:02:22 Disorder of thyroid gland 48677075 Completed Darshana Gustafson PA-C Attn: Accounting ,[address] [place], [address] , [place] [facility] 6 10:02:22 Hyperlip idemia 28665949 Completed Darshana Gustafson PA-C Attn: Accounting ,[address] [place], [address] , [place] [facility] 6 10:02:22 Thyroid nodule 462331371 Completed Darshana Gustafson PA-C Attn: Accounting ,[address] [facility], [place], [address] , [facility] 6 10:02:22 Uncontro lled type 1 diabetes mellitus 124751218 Completed Darshana Gustafson PA-C Attn: Accounting ,[address] [facility], [place], [address] , [facility] 6 10:02:23 Candidia sis 56898597 Completed 09/22/2018 JESSICA Castillo NP Attn: Accounting ,[address] [facility], [place], [place], [address] [place] [address] , [facility] 8 14:22:06 Candidia sis 03484991 Completed Darshana Gustafson PA-C Attn: Accounting ,[address] [facility], [place], [place], [address] [place] [address] , [facility] 6 10:02:23 Constipa tion 43839863 Completed 09/22/2018 JESSICA Castillo NP Attn: Accounting ,[address] [facility], [place], [place], [address] [place] [address] , [facility] 8 14:21:54 Constipa tion 30728105 Completed Darshana Gustafson PA-C Attn: Accounting ,[address] [facility], [place], [place], [address] [place] [address] , [facility] 6 10:02:22 Diabetes mellitus 17410738 Active Darshana Gustafson PA-C Attn: Accounting ,[address] [facility], [place], [address] , [facility] 6 14:31:38 Diabetes mellitus 98677581 Completed Darshana Gustafson PA-C Attn: Accounting ,[address] [facility], [place], [address] , [facility] 6 10:02:22 Hypothyr oidism 97132939 Active Darshana Gustafson PA-C Attn: Accounting ,[address] [facility], [place], [place], [address] [place] [address] , [place] [facility] 6 10:02:22 Hypothyr oidism 02588448 Completed Darshana Gustafson PA-C Attn: Accounting ,[address] [facility], [place], [address] [place] [address] , [place] [facility] 6 10:02:22 Vitamin D deficien cy 13578960 Active Darshana Gustafson PA-C Attn: Accounting ,[address] [facility], [place], [place], [address] [place] [address] , [place] [facility] 6 10:02:23 Vitamin D deficien cy 63033487 Completed Darshana Gustafson PA-C Attn: Accounting ,[address] [facility], [place], [address] [place] [address] , [place] [facility] 6 10:02:23 Hypereme sis 901489920 Completed 09/22/2018 JESSICA Castillo NP Attn: Accounting ,[address] [facility], [place], [address] [place] [address] , [place] [facility] 8 14:22:03 Hypereme sis 132970761 Completed Darshana Gustafson PA-C Attn: Accounting ,[address] [facility], [place], [address] [place] [address] , [place] [facility] 6 10:02:22 Type 1 diabetes mellitus 78805153 Completed 09/20/2018 JESSICA Castillo NP Attn: Accounting ,[address] [facility], [place], [address] [place] [address] , [place] [facility] 8 11:39:47 Type 1 diabetes mellitus 58628863 Completed Darshana Gustafson PA-C Attn: Accounting ,[address] [facility], [place], [address] [place] [address] , [place] [facility] 6 10:02:22 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 Darshana Gustafson PA-C Attn: Accounting ,[address] [facility], [place], [address] [place] [address] , [place] [facility] 6 15:40:51 Papillar y thyroid carcinom a 784312280 Completed Darshana Gustafson PA-C Attn: Accounting ,[address] [place], [address] , [facility] 6 10:02:23 Menorrha ayesha [id number] Completed 09/22/2018 SYED RICE Attn: Accounting ,[address] [place], [address] , [facility] 4 16:23:21 Menorrha ayesha [id number] Completed Darshana Gustafson PA-C Attn: Accounting ,[address] [place], [address] , [facility] 6 10:02:23 Disorder of thyroid gland 98604129 Completed 09/22/2018 JESSICA Castillo NP Attn: Accounting ,[address] [place], [address] , [facility] 8 14:22:14 Hyperlip idemia 83564978 Active Darshana Gustafson PA-C Attn: Accounting ,[address] [place], [address] , [facility] 6 10:02:22 Iron deficien cy anemia 69362520 Completed 09/22/2018 resolved SYED RICE Attn: Accounting ,[address] [place], [address] , [facility] 4 16:22:58 Thyroid nodule 429141927 Active Darshana Gustafson PA-C Attn: Accounting ,[address] [place], [address] , [facility] 6 10:02:22 Problem Notes None recorded. Procedures Surgical History Date Name Laterality Status Provider Name and Address Organization Details Recorded Time 4 Injection completed LEONARDO KAUFMAN DPM [address] [place], [address], [facility] 04/07/2024 17:38:06 4 Date of Last Mammogram completed Rachael Can MA [facility] 12/27/2023 15:24:16 2 Date of Last Pap Smear completed Rachael Can MA [facility] 12/27/2023 15:23:55 8 Caesarean Section completed Sheron Robbins MA [facility] 06/05/2015 11:08:33 6 Caesarean Section completed Sheron Robbins [place] [facility] 06/05/2015 11:08:33 4 Caesarean Section completed Sheron Robbins [place] [facility] 06/05/2015 11:08:33 Tubal Ligation completed Theresa Candelaria MD Attn: Accounting,[address] [place], [address], [facility] 07/19/2018 16:03:43 Imaging Results Imaging Date Name Status LastModified by Organiz ation Details LastModified Time 03/22/2024 CT, abdomen + pelvis, w/ contrast completed [address], [place], [address], 03/23/2024 12:32:26 Procedure Notes None recorded. Medical Equipment None Reported. Allergies Allergen ID Allergen Name Allergen Category Reaction Reaction Severity Criticality Documentation Date Start Date Code Code System Note Provider Name and Address Organization Details Recorded Time 931030 peanut allergeni c extract food,medi cation Not available Not available Not available 11/27/2022 68245 8 RxNorm Not Available Not Available Not Available Medications Name Sig Start Date Stop Date Status Note LastModified by Organization Details LastModified Time Miralax 17 gram/dose oral powder In a pitcher, mix entire bottle of Miralax in one 64 ounce bottle of yellow or green Gatorade. Beginning at 5:00 PM the evening before the colonosco py, drink 1 8-ounce glass every 15 minutes until completed . Drink 4 glasses of water after finishing this mixture 2022 active Not Available Not Available Not Avai lable atorvastati n 40 mg tablet TAKE ONE TABLET BY MOUTH ONCE DAILY AT BEDTIME FOR CHOLESTER OL active Not Available Not Available No t Available Augmentin 875 mg-125 mg tablet Take 1 tablet twice a day by oral route for 7 days. 2014 active Not Available Not Available Not Avai lable levothyroxi ne 137 mcg tablet TAKE ONE TABLET BY MOUTH EVERY MORNING FOR THYROID active Not Available Not Available No t Available azelastine 0.05 % eye drops INSTILL 1 DROP INTO AFFECTED EYE(S) BY OPHTHALMI C ROUTE 2 TIMES PER DAY 2023 active Not Available Not Available Not Avai lable atorvastati n 20 mg tablet Take 1 tablet every day by oral route for 90 days. 11/28 completed Not Available Not Available Not Available atorvastati n 10 mg tablet Take 1 tablet every day by oral route. 11/04 completed Not Available Not Available Not Available glyburide 5 mg tablet Take 1 tablet twice a day by oral route. 05/18 completed Not Available Not Available Not Available nystatin 100,000 unit/gram topical ointment APPLY TO THE AFFECTED AREA(S) BY TOPICAL ROUTE 2 TIMES PER DAY 2020 active Not Available Not Available Not Avai lable fluconazole 150 mg tablet Take 1 tablet every week by oral route for 21 days. 03/20 completed Not Available Not Available Not Available fluconazole 200 mg tablet Take 1 tablet every week by oral route. 03/20 completed Not Available Not Available Not Available prednisone 20 mg tablet TAKE TWO TABLETS BY MOUTH DAILY FOR FIVE DAYS 11/17 completed Not Available Not Available Not Available metformin 850 mg tablet Take 1 tablet twice a day by oral route. 2014 active Not Available Not Available Not Avai lable Lantus U-100 Insulin 100 unit/mL subcutaneou s solution Inject 25 units by subcutane ous route daily 01/27 completed Not Available Not Available Not Available Flonase 50 mcg/actuati on nasal spray,suspe nsion Inhale 1 spray twice a day by intranasa l route. 2014 active Not Available Not Available Not Avai lable Terazol 3 0.8 % vaginal cream Insert 1 applicato rful every day by vaginal route for 3 days. 2014 active Not Available Not Available Not Avai lable Kenalog 40 mg/mL suspension for injection Take 0.25 mL by injection route. 2023 active Not Available Not Available Not Avai lable Vitamin tablet Take 1 tablet every day by oral route as directed for 90 days. 2014 active Not Available Not Available Not Avai lable Zofran 4 mg tablet Take 1 tablet every 8 hours by oral route as needed for 2 days. 2014 active Not Available Not Available Not Avai lable Humalog U-100 Insulin 100 unit/mL subcutaneou s solution 01/27 completed Not Available Not Available Not Available Flagyl 500 mg tablet Take 1 tablet twice a day by oral route for 7 days. 09/20 completed Not Available Not Available Not Available metformin 1,000 mg tablet Take 1 tablet twice a day by oral route. 07/11 completed Not Available Not Available Not Available levothyroxi ne 125 mcg tablet TAKE 1 TABLET BY MOUTH DAILY 07/01 completed Not Available Not Available Not Available nystatin 100,000 unit/gram topical cream APPLY TO THE AFFECTED AREA(S) BY TOPICAL ROUTE 2 TIMES PER DAY 03/20 completed Not Available Not Available Not Available levothyroxi ne 150 mcg tablet Take 1 tablet every day by oral route in the morning. 04/14 completed Not Available Not Available Not Available Humulin N NPH U-100 Insulin (isophane susp) 100 unit/mL subcutaneou s 01/27 completed Not Available Not Available Not Available hydroxyzine HCl 25 mg tablet TAKE ONE TABLET BY MOUTH TWICE DAILY NEEDED active Not Available Not Available No t Available ergocalcife rol (vitamin D2) 1,250 mcg (50,000 unit) capsule TAKE ONE CAPSULE BY MOUTH ONCE A WEEK ON THE SAME DAY EACH WEEK FOR VITAMIN D DEFICIENC Y active Not Available Not Available No t Available ibuprofen 600 mg tablet TAKE ONE TABLET BY MOUTH THREE TIMES DAILY, IN THE MORNING, AT MID-DAY & AT BEDTIME NEEDED FOR PAIN active Not Available Not Available No t Available lovastatin 20 mg tablet Take 1 tablet every day by oral route in the evening. 2014 active Not Available Not Available Not Avai lable albuterol sulfate HFA 90 mcg/actuati on aerosol inhaler INHALE TWO PUFFS BY MOUTH FOUR TIMES DAILY NEEDED active Not Available Not Available No t Available insulin syringe U-100 with needle 0.5 mL 31 gauge x 5/16 active Not Available Not Available Not Available glipizide 5 mg tablet Take 1 tablet every day by oral route in the morning. 2014 active Not Available Not Available Not Avai lable metoclopram rocky 10 mg tablet Take 1 tablet 4 times a day by oral route. 05/18 completed Not Available Not Available Not Available Dulcolax (bisacodyl) 5 mg tablet,iris yed release At 2:00 PM the day before the colonosco py, take all 4 tablets of Dulcolax by mouth at one time with 8 ounces of water 2022 active Not Available Not Available Not Avai lable Novolog FlexPen U-100 Insulin aspart 100 unit/mL (3 mL) subcutaneou s INJECT THREE UNITS UNDER THE SKIN PER MEAL plus sliding scale correctio n. Max daily DOSE 20 units active Not Available Not Available No t Available Levemir U-100 Insulin 100 unit/mL subcutaneou s solution Inject 35 units twice a day by subcutane ous route. 2020 active Not Available Not Available Not Avai lable Levemir FlexPen 100 unit/mL (3 mL) solution subcutaneou s insulin pen INJECT 35 UNITS UNDER THE SKIN TWICE DAILY EVERY MORNING AND AT BEDTIME active Not Available Not Available No t Available Januvia 100 mg tablet Take 1 tablet every day by oral route for 30 days. 07/11 completed Not Available Not Available Not Available Sure Comfort Pen Needle 31 gauge x 3/16 USE TO INJECT INSULIN FIVE TIMES DAILY active Not Available Not Available No t Available FeroSul 325 mg (65 mg iron) tablet TAKE ONE TABLET BY MOUTH EVERY DAY active Not Available Not Available No t Available Lantus Solostar U-100 Insulin 100 unit/mL (3 mL) subcutaneou s pen INJECT 38 UNITS UNDER THE SKIN TWICE DAILY EVERY MORNING AND EVERY EVENING FOR DIABETES 2024 active Not Available Not Available Not Avai lable Humalog KwikPen (U-100) Insulin 100 unit/mL subcutaneou s INJECT FIVE UNITS UNDER THE SKIN 15 MINUTES BEFORE MEALS 2023 active Not Available Not Available Not Avai lable levothyroxi ne 137 mcg capsule Take 1 capsule every day by oral route for 30 days. 08/12 completed Not Available Not Available Not Available calcium 600 mg (as carbonate)- vitamin D3 20 mcg (800 unit) tablet Take 1 tablet twice a day by oral route for 30 days. 2014 active Not Available Not Available Not Avai lable Linzess 145 mcg capsule Take 1 capsule every day by oral route for 30 days. 2014 active Not Available Not Available Not Avai lable Farxiga 10 mg tablet Take 1 tablet every day by oral route for 30 days. 07/11 completed Not Available Not Available Not Available Jardiance 25 mg tablet Take 1 tablet every day by oral route for 90 days. 2024 active Not Available Not Available Not Avai lable TRUEplus Pen Needle 31 gauge x 1/4 USE DIRECTED TWO TIMES A DAY active Not Available Not Available No t Available ID NOW COVID-19 Test Kit DIRECTED active Not Available Not Available No t Available FreeStyle Darlyn 3 Sensor device USE TO CHECK BLOOD SUGAR. CHANGE EVERY 14 DAYS active Not Available Not Available No t Available Vitals Date Recorded Body height Body mass index (BMI) Body weight Heart rate Body temperature Pain severity - 0-10 verbal numeric rating [Score] - Reported Systolic blood pressure Diastolic blood pressure Provider Name and Address Organization Details Last Updated DateTime 4 155.58 cm 27.9 kg/m2 75933.2 6 g 86 /min 97.7 [degF] 7 131 mm[Hg] 75 mm[Hg] Denver Mcgraw MA [facility] 4 16:33:33 Date Recorded Body height Body mass index (BMI) Body weight Heart rate Oxygen saturation Oxygen saturation in Arterial blood by Pulse oximetry Systolic blood pressure Diastolic blood pressure Provider Name and Address Organization Details Last Updated DateTime 4 155.58 cm 27.8 kg/m2 39017.4 7 g 102 /min 99 % 99 % 118 mm[Hg] 75 mm[Hg] Rachael Can MA [facility] 4 14:40:42 Date Recorded Body height Body mass index (BMI) Body weight Heart rate Body temperature Systolic blood pressure Diastolic blood pressure Provider Name and Address Organization Details Last Updated DateTime 4 155.58 cm 27.7 kg/m2 22332.6 7 g 102 /min 97.8 [degF] 132 mm[Hg] 52 mm[Hg] Vanessa GrantTAM [facility] 4 15:58:03 Date Recorded Body height Body mass index (BMI) Body weight Heart rate Oxygen saturation Oxygen saturation in Arterial blood by Pulse oximetry Systolic blood pressure Diastolic blood pressure Provider Name and Address Organization Details Last Updated DateTime 4 155.58 cm 27.9 kg/m2 98340.2 6 g 97 /min 99 % 99 % 98 mm[Hg] 66 mm[Hg] Rachael Can MA [facility] 4 15:55:49 Date Recorded Body height Body mass index (BMI) Body weight Heart rate Oxygen saturation Oxygen saturation in Arterial blood by Pulse oximetry Systolic blood pressure Diastolic blood pressure Provider Name and Address Organization Details Last Updated DateTime 5 155.58 cm 28.5 kg/m2 86571.0 4 g 103 /min 99 % 99 % 136 mm[Hg] 82 mm[Hg] Rachael Can MA [facility] 5 16:12:27 Social History Question Answer Notes LastModified by Organizat ion Details LastModified Time Tobacco Smoking Status Current Some Day Smoker Rachael Can MA null, [facility] 03/18/2021 15:26:36 Do You Have An Advance Directive? No Information not available 04/04/2015 What Is Your Level Of Alcohol Consumption? None Information not available 09/27/2014 If You Are , What Was Your Level Of Alcohol Consumption Prior To ? None Information not available 04/04/2015 How Many Years Have You Consumed Alcohol? 0 Information not available 04/04/2015 Is Anesthesia Consult Planned? No Information not available 04/04/2015 Plan No Information no t available 04/04/2015 Is Blood Transfusion Acceptable In An Emergency? Yes Information not available 04/04/2015 What Is Your Level Of Caffeine Consumption? Occasional Information not available 09/27/2014 Live With Cats/exposure To Cat Litter No Information not available 04/04/2015 How Much Tobacco Do You Chew? None Information not available 04/04/2015 In The 14 Days Before Symptom Onset, Have You Had Close Contact With A Laboratory-confir med COVID-19 While That Case Was Ill? No Information not available 03/18/2021 In The 14 Days Before Symptom Onset, Have You Had Close Contact With A Person Who Is Under Investigation For COVID-19 While That Person Was Ill? No Information not available 03/18/2021 Have You Been To An Area Known To Be High Risk For COVID-19? No Information not available 03/18/2021 Are You Currently Employed? No Information not available 11/15/2014 What Type Of Diet Are You Following? REGULAR Information not available 11/15/2014 Which Illicit Or Recreational Drugs Have You Used? No Information not available 11/15/2014 Education 10 Information no t available 11/15/2014 What Is Your Occupation? None Information not available 04/04/2015 Have There Been Any Changes To Your Family Or Social Situation? No Information no t available 04/04/2015 Frequent Air Travel No Information not available 04/04/2015 Are There Any Guns Present In Your Home? No Information not available 11/15/2014 Hard Of Hearing Or Deaf In One Or Both Ears? No Information not available 11/15/2014 Illicit Drugs Pre- None Information not available 04/04/2015 How Many Years Have You Used Illicit Or Recreational Drugs? 0 Information not available 04/04/2015 Legally Blind In One Or Both Eyes? No Information no t available 11/15/2014 Live Alone Or With Others? With Others Information not available 11/15/2014 Marital Status Informatio n not available 09/27/2014 What Was The Date Of Your Most Recent Tobacco Screening? 01/23/2025 Information not available 01/23/2025 How Many Children Do You Have? 4 Information not available 11/15/2014 Are There Any Occupational Health Risks Where You Work? 0 Information not available 04/04/2015 Performs Monthly Self-breast Exam? Yes Information no t available 04/04/2015 Do You Use Protection During Sex? No Information not available 11/15/2014 Seat Belts Used Routinely Yes Information not available 11/15/2014 Are You Sexually Active? Yes Information not available 11/15/2014 Smoke Alarm In Home Yes Information not available 11/15/2014 Do You Have Smoke And Carbon Monoxide Detectors In Your Home? Yes Information not available 04/04/2015 At What Age Did You Start Smoking Tobacco? 0 Information not available 04/04/2015 Are You Passively Exposed To Smoke? No Information no t available 11/15/2014 How Much Tobacco Do You Smoke? No Information not available 04/04/2015 Smoking Pre- No Information not available 04/04/2015 General Stress Level Low Information not available 11/15/2014 Do You Use Any Illicit Or Recreational Drugs? No Information not available 03/18/2021 Do You Use Sunscreen Routinely? Yes Information not available 11/15/2014 Supplements Vitamins [email or web address] Information not available 04/26/2015 Has Tobacco Cessation Counseling Been Provided? Yes Information not available 05/15/2024 On What Date Was Tobacco Cessation Counseling Provided? 01/23/2025 Information not available 01/23/2025 How Many Years Have You Smoked Tobacco? 0 Information not available 04/04/2015 Do You Or Have You Ever Used Any Other Forms Of Tobacco Or Nicotine? No [email or web address] Information not available 03/20/2021 Sex: Female Functional Status Question Answer Note LastModified by Organizat ion Details LastModified Time Are you able to care for yourself? Yes Information not available 11/15/2014 What is your exercise level? Occasional Information not available 11/15/2014 Mental Status None recorded. Family History Nothing Reported. Medical History Condition Response Coronary Artery Disease N Other N Atrial Fibrillation N High Blood Pressure N Breast Cancer N Lung Disease N Depression N COPD N Blood Clots N Breast Problem N Anesthesia Complications N Anxiety Disorder N Muscle, Joint, or Bone Problems N Arthritis N Infertility N Polyps N Acid Reflux (GERD) N Cancer N Stroke N ADHD N Endometriosis N High Cholesterol Y Liver Disease N Fibromyalgia N Headaches N Kidney Disease N Heart Problems N Thyroid Problems Y Kidney or Bladder Problems N GI Problems N Acne N Eating Disorder N Skin Problems N Anemia N Heart Attack (OK) N Diabetes Y Ovarian Cancer N Blood Transfusions N Seizures/Epilepsy N Abuse/Domestic Violence N Asthma N Allergies N Hepatitis N Heart Disease N Pre-Eclampsia N Hypertension N Heart Failure N Osteoporosis N Gynecological History Statement/Question Response Abnormal Pap N Date of Last Mammogram 12/10/2023 Flow Moderate Date of LMP 11/03/2021 On BCP's at Conception? N STIs/STDs N HPV Vaccine N Age at Menarche 16 Current Control Method Tubal Ligat ion Age at First Child 22 Frequency of Cycle (Q days) 30 Sexually Active? Y Menses Monthly Y Date of Last Pap Smear 12/24/2021 Sexual Problems? N LMP Definite Obstetrics History GPAL:G 5 P 4 0 0 4 Type Value Multiple Births 0 Full Term 4 Induced 0 Spontaneous 0 Premature 0 Living 4 Ectopics 0 Total 5 Immunizations Vaccine Type Date Status Note Provider Nam e and Address Organization Details Recorded Time COVID-19, mRNA, LNP-S, PF, 30 mcg/0.3 mL dose 1 completed Ashlee Carpenter [place], [place] [facility] 04/18/2021 16:35:44 COVID-19, mRNA, LNP-S, PF, 30 mcg/0.3 mL dose 1 completed Rachael [place], [place] [facility] 06/27/2024 13:06:45 Influenza, split virus, quadrivalent, preservative 8 completed Not Available [facility] 10/28/2019 02:36:25 Influenza, split virus, quadrivalent, preservative 0 completed Nataliya Chávez [place], [place] [facility] 08/02/2020 10:51:40 Influenza, split virus, quadrivalent, PF 2 [place] ERROL [place] [facility] 11/07/2021 10:48:35 Pneumococcal conjugate PCV20, polysaccharide [id number] conjugate, adjuvant, PF 3 completed SYED RICE Attn: Accounting,[address], [place], [address], [facility] 11/28/2022 19:22:54 Influenza, split virus, quadrivalent, PF 3 completed Rani Pal[place] C[place], [place] [facility] 08/16/2023 11:32:37 Influenza, split virus, quadrivalent, PF 4 completed SYED RICE Attn: Accounting,[address], [place], [address], [place] [facility] 11/23/2023 08:34:29 Past Encounters Encounter ID Performer Location Encounter Start Date Encounter Closed Date Diagnosis/Indication Diagnosis SNOMED-CT Code Diagnosis ICD10 Code Diagnosis Note [id number] Shimon saunders [address] [place] [id number] 09/27/2014 11:00:45 09/28/2014 13:30:08 Disorder of thyroid gland [id number] Thyroid nodule [id number] Needs referral for biopsy. Our office will verify if Dr. Ortiz at [facility] is able to perform. If not we will refer to Shun/Kelly Talley. At this point patient does not have ITIN or SSN, but Shaista is available to email marketing assistant patient as necessary. [id number] BERNABE Tristan [address] [place] [id number] 11/15/2014 11:55:56 11/15/2014 13:23:16 Uncontrolled type 2 diabetes mellitus [id number] Thyroid nodule [id number] Mammography abnormal [id number] Needs f/u February 2015 Hyperlipidemia 92691174 Acute sinusitis [id number] ALFREDO Jenkins [address] [place] [address] 12/07/2014 10:14:58 12/07/2014 11:25:09 Hyperlipidemia 84148611 Uncontroll ed type 1 diabetes mellitus 852751077 Type 1.5, adult onset insulin dependent. Had long discussion that I strongly believe that she is an adult onset insulin dependent diabetic. This is no fault of her own. Discussed that her body needs insulin just like a person with thyroid disease would need thyroid medication . She is going to finish out her current supply of medication and then we'll see her back in 2 weeks after starting insulin. Insulin instructio n given by TAM with Serbian staff lisa ribeiro [id number] BERNABE Tristan [address] [facility] [place] [address] 12/31/2014 09:39:43 12/31/2014 10:11:35 Uncontrolled type 1 diabetes mellitus 141834380 Thyroid nodule 625081255 Allergic rhinitis 67435171 [id number] TAM Barnes [address] [facility] [place] [address] 02/27/2015 10:59:21 02/27/2015 12:20:54 Uncontrolled type 1 diabetes mellitus 388679888 Hyperlipidemia 52255890 Will check lipid today and proceed from there Missed period 09918691 P ositive test will refer to Dr. Yang [id number] BERNABE Tristan (NUTRITION CONSULTANT) [address] [place] [address] 04/04/2015 14:33:37 04/04/2015 16:27:59 Normal 54481950 Advanced m aternal age 830181502 Milk of ca lcium calcification 991968319 Disorder o f thyroid gland 95564298 Hyperlipidemia 13172830 Thyroid nodule 823650447 Uncontroll ed type 1 diabetes mellitus 343524278 [id number] BERNABE Tristan (NUTRITION CONSULTANT) [address] [place] [address] 04/26/2015 09:19:29 04/26/2015 10:22:28 Normal [id number] BERNABE Tristan (NUTRITION CONSULTANT) [address] [place] [address] 04/30/2015 09:51:03 04/30/2015 11:20:07 Normal 53228787 Constipation 42360186 Diabetes mellitus 71132347 Advanced m aternal age 303341072 Hypothyroidism 24462231 Vitamin D deficiency 30026692 Hyperemesis 059913291 [id number] BERNABE Tristan (NUTRITION CONSULTANT) [address] [place] [address] 06/05/2015 10:06:55 06/05/2015 11:50:47 Second trimester 39889346 Type 1 kia betes mellitus 17563396 Hypothyroidism 56567538 [id number] BERNABE Tristan (Adult Med) [address] [place] [address] 11/01/2015 10:51:27 11/01/2015 11:48:27 Uncontrolled type 1 diabetes mellitus 951698706 E10.65 Will check a1c today She did not take her medication today Will increase her to metformin 1000mg BID and glyburide 5mg BID She will RTC next week for fasting blood draw She will schedule a f/u appointmen t in 2 weeks I have her a book to record her BS TID to bring back in 2 weeks If sugars are still high, will initiate insulin Hyperlipidemia 53983895 E78.5 Will check lipid today and proceed from there Hypothyroidism 54501914 E03.9 WIll check levels and prescribe accordingl y [id number] BERNABE Tristan (Adult Med) [address] [place] [address] 11/15/2015 10:40:56 11/15/2015 12:13:52 Diabetes mellitus 03006632 E11.9 SHe would like to initiate insulin since she has been on this in the past We will do 20 units insulin qPM and continue with metformin BID Advised that if sugar is less than 100 when checking to not take metformin RTC before the end of November to ensure that everything is set for her medication s because she has insurance until the end of the month Thyroid nodule 035499702 E04.1 Patient had a thyroid nodule that had been advised to be further evaluated one year ago, but then she became . Will try to have thyroid biopsy before she loses her insurance at the end of the month; if this is not possible, patient also completed the [facility] applicatio n in office today that can be used after the end of the month Continue with current levothyrox ine dose [id number] BERNABE Tristan (Adult Med) [address] [place] [address] 12/06/2015 09:44:46 12/06/2015 11:50:25 Papillary thyroid carcinoma 736046700 C73 Referred to [facility] for general surgery Discussed her biopsy results and that we would be referring to [facility] for further evaluation - patient v/u Diabetes mellitus 226931 09 E11.9 Will increase insulin to 30 units insulin qPM (going up 2 units every evening) and continue with metformin BID - her goal BS is 150 - currently running 180-220 Advised that if sugar is less than 100 when checking to not take metformin RTC 2 months Menorrhagia 330167351 N9 2.0 Will complete [facility] form today [id number] BERNABE Tristan (Adult Med) [address] [place] [address] 01/28/2016 09:17:52 01/28/2016 11:28:48 Diabetes mellitus 83783166 E11.9 Will increase insulin to 30-35 units insulin qPM (going up 2 units every evening) and continue with metformin BID - her goal BS is 150 - currently running 180-220 Advised that if sugar is less than 100 when checking to not take metformin RTC 4 months Will check a1c today Papillary thyroid carcinoma 125319793 C73 Referred to [facility] for general surgery - printed out US and biopsy results for her to take with her to appointmen t at [facility] - discussed that I believe it is in her best interest to have this taken care of Advised to set up an appointmen t to talk to them in person at an appointmen t versus over the phone [id number] BERNABE Tristan (Adult Med) [address] [place] [address] 05/18/2016 09:26:18 05/18/2016 15:44:27 Uncontrolled type 1 diabetes mellitus 260915398 E10.65 Levemir 35 units qPM and d/c metformin Will check a1c today Did not take her metformin this morning States that her sugars are dropping greatly at night and she is waking up in the middle of the night and her sugars are down to 60s Papillary thyroid carcinoma [id number] C73 Referred to [facility] for general surgery - printed out US and biopsy results for her to take with her to appointmen t at [facility] - discussed that I believe it is in her best interest to have this taken care of Patient given referral to [facility] again today Discussed with patient that per [place] I cannot refer her there; however, if she would like to contact them to make an appointmen t she can do so Advised that it doesn't matter to me which route she takes - just as long as she has this taken care of [id number] Christel (NUTRITION CONSULTANT) [address] [place] [address] 0 11/26/2017 09:05:01 11/26/2017 13:39:58 Mass of left breast 9021788210 0318435 N63.22 IBCCP0.5cm , mobile, firm lump in upper in quadrant of left greast - will order diagnostic mammogram and US if needed [id number] BERNABE Tristan (NUTRITION CONSULTANT) [address] [place] [address] 0 01/14/2018 10:34:12 01/14/2018 10:57:01 Mass of left breast 1463137214 9449593 N63.22 IBCCP0.5cm , mobile, firm lump in upper in quadrant of left breast - will order US at this time [id number] MD Christel Tapia (NUTRITION CONSULTANT) [address] [place] [address] 07/19/2018 14:41:12 07/19/2018 17:25:39 Gynecologic examination 72381762 Z01.419 Age appropriat e counseling done. Venereal d isease screening 170337035 Z11.3 Z20.2 Administra tion of influenza vaccine 80973198 Z23 Glycosuria 30887879 R81 Advised patient to f/u with PCP. Proteinuria 70192755 R80 .9 Advised patient to f/u with PCP. Mammography abnormal 168 238357 R92.8 D/W PATIENT. Bacterial vaginosis 4197 73080 N76.0 Counseled about it. Candidal vulvovaginitis 97788815 B37.3 Counseled about it. Breast lump 08768783 N63 .0 d/w patient. Reviewed mammogram and breast ultrasound . D/W patient. Breast surgeon referral. [id number] JESSICA Castillo NP [facility] [address] [place] [address] 09/20/2018 11:07:28 09/20/2018 11:53:13 Diabetes mellitus 91030445 E11.9 -HgA1c 11.0 on -Inc rease levemir to 35 units BID-Check BS daily, before breakfast- F/u 1 month Hyperlipidemia 82716056 E78.5 -Recheck lipid panel Thyroid nodule 376949538 E04.1 -Recheck TSH [id number] Alva Jensen MD [facility] [address] [place] [address] 01/13/2019 09:48:48 01/16/2019 10:27:22 Insulin treated type 2 diabetes mellitus 507244539 Z79.4 A1C 11.6 Postoperat berry hypothyroidism 21560551 E89.0 Mixed hyperlipidemia 267 838828 E78.2 Vitamin D deficiency 347 68419 E55.9 [id number] Alva Jensen MD [facility] [address] [place] [address] 04/14/2019 13:53:37 04/24/2019 09:29:28 Hypomagnesemia 731395418 E83.42 Type 2 kia betes mellitus 37206739 E11.65 Hypothyroidism 61841367 E03.9 Insulin tr eated type 2 diabetes mellitus 298713645 Z79.4 A1C 11.6 Mixed hyperlipidemia 267 000718 E78.2 Neuropathy 307879721 G62 .9 [id number] Alva Jensen MD [facility] [address] [place] [address] 08/31/2019 11:48:58 09/04/2019 16:18:36 Type 2 diabetes mellitus 49285766 E11.65 discussed diabetic diet and exercise. Takes metformin, long acting insulin, januvia Vaginitis 13388076 N76.0 if symptoms persist will do pap test and culture. [id number] Alva Jensen MD [facility] [address] [place] [address] 03/25/2020 09:45:24 03/27/2020 11:40:22 Hypothyroidism 64705117 E03.9 will continue thyroid supplement s Insulin tr eated type 2 diabetes mellitus 304891525 Z79.4 A1C 11.6 Vaginitis 68277954 N76.0 if symptoms persist will do pap test and culture. Mixed hyperlipidemia 267 229468 E78.2 discussed low fat, low carb diet, and encouraged exercise. Vitamin D deficiency 347 09152 E55.9 will treat empiricall y. [id number] Alva Jensen MD [facility] [address] [place] [address] 08/02/2020 10:03:52 08/05/2020 08:32:38 Gynecologic examination 92142609 Z01.419 Screening mammography 24 518592 Z12.31 Administra tion of influenza vaccine 29713921 Z23 Uncontroll ed type 2 diabetes mellitus 713586713 E11.65 Vaginitis 69752459 N76.0 pap test and culture obtained since not better with oral fluconazol e [id number] Alva Jensen MD [facility] [address] [place] [address] 03/18/2021 08:02:43 03/25/2021 13:27:28 Hypothyroidism 70284784 E03.9 will continue thyroid supplement s Vitamin D deficiency 347 72717 E55.9 will treat empiricall y. Mixed hyperlipidemia 267 462596 E78.2 discussed low fat, low carb diet, and encouraged exercise. Screening mammography 24 313643 Z12.31 Type 2 kia betes mellitus 52647943 E11.65 discussed diabetic diet and exercise. Takes metformin, long acting insulin, januvia [id number] Alva Jensen MD [facility] [address] [place] [address] 03/20/2021 10:12:22 03/31/2021 06:57:22 Chafing of skin 437058444 L30.4 Screening mammography 24 896804 Z12.31 Type 2 kia betes mellitus 82706021 E11.65 discussed diabetic diet and exercise. Takes metformin, long acting insulin Mixed hyperlipidemia 267 180969 E78.2 discussed low fat, low carb diet, and encouraged exercise. Hypothyroidism 71444642 E03.9 will continue thyroid supplement s Vitamin D deficiency 347 04175 E55.9 will treat empiricall y. Depression screening 171 647207 Z13.31 patient does not appear to be significan tly depressed. [id number] SYED RICE [facility] [address] [place] [address] 07/01/2021 11:20:41 07/02/2021 12:44:57 Mixed hyperlipidemia 152646197 E78.2 Has not taken cholestero l medication for along time as pharmacy has not given to her. wants refill Insulin tr eated type 2 diabetes mellitus 977230435 Z79.4 A1C 14.2. 03/2021, 11.2 in 2019.Has not been controlled for long time. Was told by endo she no longer produced insulin. will obtain records and her endo only controls her thyroid. She will bring glucose numbers on Wednesday and will initiate meal time insulin. Not changing today because she states her number are low 100's in afternoon. Need to get sugar range. She is having some tingling in feet. - check sugars daily; goal fasting <130 and 1-2 hours after meal <180. call office if sugars falling under 70. Patient aware of hypoclycem ic symptoms.- discussed diet: avoid sugars, pasta, tortillas, bread, rice, potatoes- Exercise 30 min 5x week- diabetic eye exam- foot exam today normal- no nail changes, normal movement, normal filament test- f/u by wednesday with glucose numbers Papillary thyroid carcinoma 713764647 C73 [address] Hodges at [facility] last week for thyroid f/u. No records from [facility] since 2018. signed record release today. Continue following Diabetes mellitus 096104 09 E11.9 refills-F/ u 2 weeks [id number] SYED RICE [facility] [address] [place] [address] 11/04/2021 16:22:50 11/10/2021 11:44:45 Vitamin D deficiency 79324656 E55.9 Mixed hyperlipidemia 267 146815 E78.2 Has not taken cholestero l medication for along time as pharmacy has not given to her. wants refill Insulin tr eated type 2 diabetes mellitus 668236695 Z79.4 A1C 14.2. 06/2021, 11.2 in 2019.Has not been controlled for long time. Patient states she is now watching diet and glucose runs 120's. She feels better. needs pneumo vaccine and eye exam. - check sugars daily; goal fasting <130 and 1-2 hours after meal <180. call office if sugars falling under 70. Patient aware of hypoclycem ic symptoms.- discussed diet: avoid sugars, pasta, tortillas, bread, rice, potatoes- Exercise 30 min 5x week- diabetic eye exam- foot exam today normal- no nail changes, normal movement, normal filament test- f/u by wednesday with glucose numbers Papillary thyroid carcinoma 411896374 C73 Patient just [address] Hodges at [facility] last week for thyroid f/u. No records from [facility] since 2018. signed record release today. Continue following. has f/u in frburary. Diabetes mellitus 264869 09 E11.9 refills-F/ u 2 weeks Administra tion of influenza vaccine 20138221 Z23 Overweight 976644946 E66 .3 [id number] SYED RICE [facility] [address] [place] [address] 12/24/2021 10:22:59 12/25/2021 09:59:42 Gynecologic examination 67098152 Z01.419 Patient c/o left breast pain on occasion. Has had bx of left breast lump and it was normal (2018). On bi-manual exam patient has severe pain over left ovary. no masses on palpation. US will be ordered pap done 2019 , normal- pap obtained- lmp 11/03/21 Screening mammography 24 019714 Z12.31 scheduled alreadypat ient had breast lump in 2018 and received diagnostic mammogram and biopsy. normal mamm and bx. Left lower quadrant pain 653980427 R10.32 Patient had terrible pain on bi-manual exam and I was unable to finish exam. Pain caused patient tears. Will obtain US [id number] SYED RICE [facility] [address] [place] [address] 11/27/2022 09:28:00 11/27/2022 10:10:46 Mixed hyperlipidemia 375180368 E78.2 needs refill Insulin tr eated type 2 diabetes mellitus 988139646 Z79.4 A1C 11.4% (11/2022) 14.2% (06/2021), 11.2% 2019. Adding jardianceH as not been controlled for long time and non-compla int with f.u visits.Janis t exam: normal 11/27/2022E ye Exam: sent referralAl b/Cr: orderedSta tin: atorvastat in 20mg, complaintA CEi:pneumo víctor vaccine: [email or web address] 11/2022 Papillary thyroid carcinoma 677668655 C73 [address] Hodges at [facility] see him in one month for US and f/u Overweight 434276734 E66 .3 BMI 26.9 Anemia 656620369 D64.9 anemia on chart review. work up Administra tion of pneumococcal vaccine 31578234 Z23 given today Screening for malignant neoplasm of colon 394961082 Z12.11 denies bloody/claudia k stools Screening mammography 24 369834 Z12.31 patient had breast lump in 2018 and received diagnostic mammogram and biopsy. normal mamm and bx. [id number] SYED RICE [facility] [address] [place] [address] 08/12/2023 14:52:37 08/12/2023 15:52:35 Screening mammography 90891405 Z12.31 patient had breast lump in 2018 and received diagnostic mammogram and biopsy. normal mamm and bx. Mixed hyperlipidemia 267 321373 E78.2 needs refill Insulin tr eated type 2 diabetes mellitus 842774405 Z79.4 following endo for management A1C 11.4% (11/2022) 14.2% (06/2021), 11.2% 2019. Adding jardiance insulin 35 am and pm, jardianceF oot exam: normal 11/27/2022E ye Exam: sent referralAl b/Cr: orderedSta tin: atorvastat in 40mg, complaintA CEi:pneumo víctor vaccine: [email or web address] 11/2022 Papillary thyroid carcinoma 125144473 C73 [address] Hodges at [facility] on last exam 07/2023 with endo Overweight 964326617 E66 .3 BMI 26.9 Anemia 454435062 D64.9 anemia on chart review. work up Screening for malignant neoplasm of colon 481403697 Z12.11 denies bloody/claudia k stools Administra tion of influenza vaccine 36275759 Z23 Insomnia 362893455 G47.0 0 Discussed sleep hygiene - no tv, electronic s in room- go to bed at joey time every night- Avoid eating 1-2 hours before bed- Do no have any caffeine after 3 pm- if unable to sleep she is to leave room and read for 15 minutes. May repeat this multiple times. Goal is not to associate room with anxiety or work [id number] NATALIYA LYNCH [facility] [address] [place] [address] 09/08/2023 14:15:14 09/08/2023 15:12:35 Screening for malignant neoplasm of colon 715798943 Z12.11 First colonoscop y. No FH of colon cancer.CBC and CMP in chart 08/12/23 [id number] SYED RICE [facility] [address] [place] [address] 11/17/2023 16:22:47 11/25/2023 11:24:33 Screening mammography 69081677 Z12.31 patient had breast lump in 2018 and received diagnostic mammogram and biopsy. normal mamm and bx. Mixed hyperlipidemia 267 368130 E78.2 needs refill Insulin tr eated type 2 diabetes mellitus 981765067 Z79.4 start mealtime insulin againneeds to bring in Glucose logadvsied she contact endo today A1C 11.4% (11/2022) 14.2% (06/2021), 11.2% 2019. Adding jardiance insulin 35 am and pm, lloydanceF oot exam: normal 11/27/2022E ye Exam: 08/2023, states normal [place]Cr : orderedSta tin: atorvastat in 40mg, complaintp neumonia vaccine: 11/2022 Papillary thyroid carcinoma 090286047 C73 [address] Hodges at [facility] on last exam 07/2023 with endo Overweight 531788167 E66 .3 BMI 26.9 Anemia 597365511 D64.9 anemia on chart review. work up Administra tion of influenza vaccine 89496090 Z23 given today Pain of le ft ankle joint 6996974097 1893794 M25.572 left ankle pain for some weeks with pain on palpation, no known MOIon exam swelling is anterior and appears puffy without brusign or skin changes normal ROM.limite d exam as patient was leaving when she mentions ankle pain [id number] SYED RICE [facility] [address] [place] [address] 12/27/2023 15:21:09 12/30/2023 10:22:35 Insulin treated type 2 diabetes mellitus 674944909 Z79.4 increase mealtime insulin to 5 unitsneeds to bring in Glucose logschedul ed for one more monthshe agrees to call if BG >200 A1C 11.4% (11/2022) 14.2% (06/2021), 11.2% 2019. Adding jardiance insulin 35 am and pm, jardianceF oot exam: normal 11/27/2022E ye Exam: 08/2023, states normal [place]Cr : orderedSta tin: atorvastat in 40mg, complaintp neumonia vaccine: [email or web address] 11/2022 Overweight 728606721 E66 .3 BMI 27.5 [id number] LEONARDO KAUFMAN DPM [facility] ts [address] [place] [address] 01/14/2024 10:29:17 01/26/2024 08:31:58 Sprain of calcaneofibular ligament of left ankle joint 8314403397 8773267 S93.412A The sprained area was evaluated and x-rays confirm no evidence of rupture/fr acture of the area. The patient was educated to elevate, ice and keep an erwin wrap around the area. An ankle brace was prescribed today to help stabilize the area, prevent further injury, reduce pain and reduce swelling. Oral NSAIDs were discussed and recommende d. The area is to be iced and I have reviewed all offloading options. I have told the patient that is the area does not heal, I will order an MRI. I have also discussed physical therapy after the area improves to stabilize and strengthen the area Pain of le ft ankle joint 0172463418 7235604 M25.572 Diabetes mellitus 012709 09 E11.628 Patient was educated about the systemic risks of diabetes and importance of proper glucose control, dangers of neuropathy and loss of gift of pain and risk stratifica tion and exam frequency. Patient was educated on high pressure areas including risks and offloading solutions. Reviewed with patient proper foot care instructio ns and daily self-exami nation and monitoring of the feet. Peroneal t endinitis of left lower limb 1803016472 51728 M76.72 The patient was educated regarding how to mechanical ly stabilize their deformity. The patient was given education about shoe recommenda tions specific for the condition. The patient was educated about custom orthotics and how appropriat e shoes and orthotics can prevent further worsening of the deformity. The patient was educated about how bad shoe habits can worsen the condition. NSAIDS, P.T., injections and other conservati ve treatments were discussed. Both surgical and non surgical treatments were discussed, but conservati ve options were emphasized . [id number] LEONARDO KAUFMAN DPM [facility] [address] [place] [address] 02/18/2024 16:20:31 02/21/2024 07:51:44 Sprain of calcaneofibular ligament of left ankle joint 3733605440 8860442 S93.412D The sprained area was evaluated and x-rays confirm no evidence of rupture/fr acture of the area. The patient was educated to elevate, ice and keep an erwin wrap around the area. An ankle brace was prescribed today to help stabilize the area, prevent further injury, reduce pain and reduce swelling. Oral NSAIDs were discussed and recommende d. The area is to be iced and I have reviewed all offloading options. I have told the patient that is the area does not heal, I will order an MRI. I have also discussed physical therapy after the area improves to stabilize and strengthen the area-per patient to obtain aso brace from [facility] pharmacy on 02/22/24 Pain of le ft ankle joint 3704420943 9414116 M25.572 Diabetes mellitus 106413 09 E11.628 Patient was educated about the systemic risks of diabetes and importance of proper glucose control, dangers of neuropathy and loss of gift of pain and risk stratifica tion and exam frequency. Patient was educated on high pressure areas including risks and offloading solutions. Reviewed with patient proper foot care instructio ns and daily self-exami nation and monitoring of the feet. Peroneal t endinitis of left lower limb 8922382720 33454 M76.72 The patient was educated regarding how to mechanical ly stabilize their deformity. The patient was given education about shoe recommenda tions specific for the condition. The patient was educated about custom orthotics and how appropriat e shoes and orthotics can prevent further worsening of the deformity. The patient was educated about how bad shoe habits can worsen the condition. NSAIDS, P.T., injections and other conservati ve treatments were discussed. Both surgical and non surgical treatments were discussed, but conservati ve options were emphasized . [id number] SYED RICE [facility] [address] [place] [address] 03/14/2024 14:18:07 03/14/2024 16:14:42 Allergic conjunctivitis of bilateral eyes 7372934474 94843 H10.13 has had itching and watery eyes with sunglight sensitivit y since last wednesdayno pain on eye movementon exam normal EOMsmall pterygium b/l eyetrial allergy drops and f/u opthalmolo gist Insulin tr eated type 2 diabetes mellitus 080250445 Z79.4 she has not been taking medication as prescribed . not taking mealtime insulin. My bg is always in 90's in the morning. She states her current endo for thyroid will not treat her diabetes. I left a message for nurse josy to see if he can take over her uncontroll ed DM. She would benefit from having freestyle darlyn.incr ease mealtime insulin to 5 units (not taking)nee ds to bring in Glucose log (did not bring)rosalino haroed for one more monthshe agrees to call if BG >200 A1C 10.1 (03/14/2024) 11.4% (11/2022) 14.2% (06/2021), 11.2% 2019. Adding jardiance insulin 35 am and pm, jardianceF oot exam: normal 11/27/2022E ye Exam: 08/2023, states normal [place] : orderedSta tin: atorvastat in 40mg, complaintp neumonia vaccine: [id number] 11/2022 Overweight 101193742 E66 .3 BMI 27.5 [id number] LEONARDO KAUFMAN DPM [facility] [address] [place] [address] 03/30/2024 15:48:57 04/10/2024 08:58:56 Sprain of calcaneofibular ligament of left ankle joint [id number] S93.412D The sprained area was evaluated and x-rays confirm no evidence of rupture/fr acture of the area. The patient was educated to elevate, ice and keep an erwin wrap around the area. An ankle brace was prescribed today to help stabilize the area, prevent further injury, reduce pain and reduce swelling. Oral NSAIDs were discussed and recommende d. The area is to be iced and I have reviewed all offloading options. I have told the patient that is the area does not heal, I will order an MRI. I have also discussed physical therapy after the area improves to stabilize and strengthen the area-per patient to obtain aso brace from [facility] pharmacy on 02/22/24 Pain of le ft ankle joint [id number] M25.572 Diabetes mellitus 993764 09 E11.628 Patient was educated about the systemic risks of diabetes and importance of proper glucose control, dangers of neuropathy and loss of gift of pain and risk stratifica tion and exam frequency. Patient was educated on high pressure areas including risks and offloading solutions. Reviewed with patient proper foot care instructio ns and daily self-exami nation and monitoring of the feet. Peroneal t endinitis of left lower limb [id number] 05843 M76.72 The patient was educated regarding how to mechanical ly stabilize their deformity. The patient was given education about shoe recommenda tions specific for the condition. The patient was educated about custom orthotics and how appropriat e shoes and orthotics can prevent further worsening of the deformity. The patient was educated about how bad shoe habits can worsen the condition. NSAIDS, P.T., injections and other conservati ve treatments were discussed. Both surgical and non surgical treatments were discussed, but conservati ve options were emphasized . [id number] SYED RICE [facility] [address] [place] [address] 05/15/2024 15:48:24 05/20/2024 21:22:06 Insulin treated type 2 diabetes mellitus 182738682 Z79.4 following endo at this timeCatrina Quinonez PA-C [facility] [place]. next visit 05/19/2024 A1C 10.1 (03/14/2024) 11.4% (11/2022) 14.2% (06/2021), 11.2% 2019. Adding jardiance insulin 40 am and 20 pm, jardianceF oot exam: normal 11/27/2022 ye Exam: 08/2023, states normal [place] orderedSta tin: atorvastat in 40mg, complaintp neumonia vaccine: [id number] 11/2022 Overweight 404325887 E66 .3 BMI 27.9 Iron defic iency anemia 98310804 D50.9 she is following obgyn but has not gotten anything to help with heavy periodsshe will call tomorrow to f/uwill monitor her anemia today Menorrhagia 234000607 N9 2.0 2-3 days of heavy bleedingfi lls a large pad in one hour [id number] Alicia Parker MA [facility] [address] [place] [address] 01/23/2025 16:04:20 01/23/2025 17:28:08 Insulin treated type 2 diabetes mellitus 906027218 Z79.4 following endo at this timeCatrina Quinonez PA-C [facility] [place]. next visit 05/19/2024 A1C 9.0% (0. 1 (03/14/2024) 11.4% (11/2022) 14.2% (06/2021), 11.2% 2019. Adding jardiance insulin 40 am and 20 pm, jardianceF oot exam: normal 11/27/2022E ye Exam: 08/2023, states normal [place] : orderedSta tin: atorvastat in 40mg, complaintp neumonia vaccine: [email or web address] 11/2022 Iron defic iency anemia 08672232 D50.9 she is following obgyn but has not gotten anything to help with heavy periodsshe will call tomorrow to f/uwill monitor her anemia today Health Concerns Section Related Observation LastModified by Organization Detai ls LastModified Time None Recorded Concern Status LastModified by Organization Details LastModified Time None Recorded Advance Directives Directive N: Payers Encounter Date Sequence Insurance Name Policy Number Policy Salgado Covered Member ID Salgado Member ID Guarantor Name 02/18/2024 1 [place] [facility] Airam Vargas [id number] Airam Vargas 03/14/2024 1 [place] [facility] Airam Vargas [id number] Airam Vargas 03/30/2024 1 [place] [facility] Airam Vargas [id number] Airam Vargas 05/15/2024 1 [place] [facility] Airam Vargas [id number] Airam Vargas Notes Date Note Type Note Provider Name and Address Organization Details Recorded Time 02/18/2024 text/html Patient presents c/o sharp pain in her left outer ankle initially graded 3-5/10 beginning November 17, 2023 after a slip and fall in her yard, that is today graded 7/10. Patient relates pain greatest with walking and pain is relieved by rest. patient reports intermittent physical therapy since the injury Denies nausea, vomiting, fever, chills, shortness of breath, chest pain, difficulty breathing, calf pain. Patient denies thickened toenails, toe nail changes, skin changes on lower legs, tingling and numbness in toes and feet and reports left ankle joint pain and sharp pain when walking LEONARDO KAUFMAN, SUDEEP [address] [place], [address], [place] 02/18/2024 16:44:51 03/14/2024 text/html she has not been taking medication as prescribed. not taking mealtime insulin. My bg is always in 90's in the morning. She states her current endo for thyroid will not treat her diabetes. I left a message for nurse josy to see if he can take over her uncontrolled DM. She is not good at checking her glucose. she would benefit from dexcom to help with readings. states had allergies in eye over the weekend. has been taking drops (not sure which) and also taking zyrtec. SYED RICE Attn: Accounting,[address] , [place], [address], [facility] 03/15/2024 07:42:00 03/30/2024 text/html Patient presents c/o sharp pain in her left outer ankle initially graded 3-5/10 beginning November 17, 2023 after a slip and fall in her yard, that is today graded 6/10. Patient relates pain greatest with walking and pain is relieved by rest. patient reports intermittent physical therapy since the injury Denies nausea, vomiting, fever, chills, shortness of breath, chest pain, difficulty breathing, calf pain. Patient denies thickened toenails, toe nail changes, skin changes on lower legs, tingling and numbness in toes and feet and reports left ankle joint pain and sharp pain when walking LEONARDO KAUFMAN DPM [address] [place], [address], [facility] 04/07/2024 17:38:11 05/15/2024 text/html here for f/u on uncontrolled DM Patient saw Grace Conway PA. She was taken off fast acting glucose and left on LA only. after meals her BG spikes >200. She has f/u 05/19/2024 to review her BG from dexcom and adjust her insulin. needs refill on jardiance. She continues to have heavy menstrual bleeding and will f/u with obgyn. She is given order for eye exam and says she will schedule. SYED RICE Attn: Accounting[address] [facility], [place], [address], [facility] 05/16/2024 16:23:30 OBGyn Episode Ob Episode Information Episode Created Date Number of Fetuses Patient Bloodtype Patient rh Status Prepregnancy Weight lbs Domestic Partner Domestic Partner Phone Father Name Mitochondrial Disorders Counselor Status 04/26/20 15 1 CLOSED Fetus Data First Name Last Name Admitted to NICU Weight (g) Sex Living Outcome Pediatric Complications Fetus ID Race Codes Race Delivery Type 3882.74 752 M Full Term [id number] Manas Calculation Initial Manas Date Initial Exam Date Initial Exam Provider Initial Ultrasound Date Last Menstrual Period Date Ultra Sound Weeks Gestation 0 Eighteen To Twenty Week Manas Update Ultra Sound Date Fundal Height At Umbil Quickening Date Ultra Sound Latest Weeks Gestation Final Manas Confirmed By Final Manas Confirmed Date Final Manas Date Ultra Sound Latest Days Gestation 0 0 Menstrual History Last Menstrual Date Menses Monthly On Bcp Conception Prior Menses Frequency Hcg Plus Date Menarche Onset Age Delivery Information Delivery Date Delivery Type Labor Anesthesia Weeks Gestation Incision Type Labor Labor Length Hrs Delivered By Post Complications Tubal Sterilization Discharge Date Comments 8 Regional-Sp inal 37 true 0 Shan Discharge Information Feeding Method Contraceptive Method Maternal HG B and HCT Levels Ob Episode Information Episode Created Date Number of Fetuses Patient Bloodtype Patient rh Status Prepregnancy Weight lbs Domestic Partner Domestic Partner Phone Father Name Mitochondrial Disorders Counselor Status 04/26/20 15 1 CLOSED Fetus Data First Name Last Name Admitted to NICU Weight (g) Sex Living Outcome Pediatric Complications Fetus ID Race Codes Race Delivery Type 3288.54 2 F Full Term [id number] Manas Calculation Initial Manas Date Initial Exam Date Initial Exam Provider Initial Ultrasound Date Last Menstrual Period Date Ultra Sound Weeks Gestation 0 Eighteen To Twenty Week Manas Update Ultra Sound Date Fundal Height At Umbil Quickening Date Ultra Sound Latest Weeks Gestation Final Manas Confirmed By Final Manas Confirmed Date Final Manas Date Ultra Sound Latest Days Gestation 0 0 Menstrual History Last Menstrual Date Menses Monthly On Bcp Conception Prior Menses Frequency Hcg Plus Date Menarche Onset Age Delivery Information Delivery Date Delivery Type Labor Anesthesia Weeks Gestation Incision Type Labor Labor Length Hrs Delivered By Post Complications Tubal Sterilization Discharge Date Comments 4 Regional-Sp inal 40 true 24 Estrell a C/s due to decels. Baby had seizures at 2 days old. Discharge Information Feeding Method Contraceptive Method Maternal HG B and HCT Levels Ob Episode Information Episode Created Date Number of Fetuses Patient Bloodtype Patient rh Status Prepregnancy Weight lbs Domestic Partner Domestic Partner Phone Father Name Mitochondrial Disorders Counselor Status 04/26/20 15 1 CLOSED Fetus Data First Name Last Name Admitted to NICU Weight (g) Sex Living Outcome Pediatric Complications Fetus ID Race Codes Race Delivery Type 3175.14 4 M Full Term [id number] Vaginal Manas Calculation Initial Manas Date Initial Exam Date Initial Exam Provider Initial Ultrasound Date Last Menstrual Period Date Ultra Sound Weeks Gestation 0 Eighteen To Twenty Week Manas Update Ultra Sound Date Fundal Height At Umbil Quickening Date Ultra Sound Latest Weeks Gestation Final Manas Confirmed By Final Manas Confirmed Date Final Manas Date Ultra Sound Latest Days Gestation 0 0 Menstrual History Last Menstrual Date Menses Monthly On Bcp Conception Prior Menses Frequency Hcg Plus Date Menarche Onset Age Delivery Information Delivery Date Delivery Type Labor Anesthesia Weeks Gestation Incision Type Labor Labor Length Hrs Delivered By Post Complications Tubal Sterilization Discharge Date Comments 8 None 40 false 1 Dilip s Discharge Information Feeding Method Contraceptive Method Maternal HG B and HCT Levels Ob Episode Information Episode Created Date Number of Fetuses Patient Bloodtype Patient rh Status Prepregnancy Weight lbs Domestic Partner Domestic Partner Phone Father Name Mitochondrial Disorders Counselor Status 04/26/20 15 1 CLOSED Fetus Data First Name Last Name Admitted to NICU Weight (g) Sex Living Outcome Pediatric Complications Fetus ID Race Codes Race Delivery Type 3315.75 752 F Full Term 08452 Manas Calculation Initial Manas Date Initial Exam Date Initial Exam Provider Initial Ultrasound Date Last Menstrual Period Date Ultra Sound Weeks Gestation 0 Eighteen To Twenty Week Manas Update Ultra Sound Date Fundal Height At Umbil Quickening Date Ultra Sound Latest Weeks Gestation Final Manas Confirmed By Final Manas Confirmed Date Final Manas Date Ultra Sound Latest Days Gestation 0 0 Menstrual History Last Menstrual Date Menses Monthly On Bcp Conception Prior Menses Frequency Hcg Plus Date Menarche Onset Age Delivery Information Delivery Date Delivery Type Labor Anesthesia Weeks Gestation Incision Type Labor Labor Length Hrs Delivered By Post Complications Tubal Sterilization Discharge Date Comments 6 Regional-Sp inal 40 false 0 Tammie Discharge Information Feeding Method Contraceptive Method Maternal HG B and HCT Levels Ob Episode Information Episode Created Date Number of Fetuses Patient Bloodtype Patient rh Status Prepregnancy Weight lbs Domestic Partner Domestic Partner Phone Father Name Mitochondrial Disorders Counselor Status 04/04/20 15 1 O Positive 110 Donavan Choudhary CLOSED Fetus Data First Name Last Name Admitted to NICU Weight (g) Sex Living Outcome Pediatric Complications Fetus ID Race Codes Race Delivery Type [id number] Problems Problem Notes Problem Name Start Date End Date Resolution Snomed Code Not e Milk of calcium calcification 550002068 Disorder of thyroid gland 1430 4000 Hyperlipidemia 41398205 Thyroid nodule 478386893 Uncontrolled type 1 diabetes mellitus 223621073 Candidiasis 49019886 Diabetes mellitus 06810951 Hypothyroidism 09237579 Vitamin D deficiency 52938297 Hyperemesis 848064835 Constipation 43456809 Type 1 diabetes mellitus 58938 009 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 Menorrhagia 241581565 Manas Calculation Initial Manas Date Initial Exam Date Initial Exam Provider Initial Ultrasound Date Last Menstrual Period Date Ultra Sound Weeks Gestation 10/08/2015 04/04/2015 alka 04/04/2015 01/01/2015 14 Eighteen To Twenty Week Manas Update Ultra Sound Date Fundal Height At Umbil Quickening Date Ultra Sound Latest Weeks Gestation Final Manas Confirmed By Final Manas Confirmed Date Final Manas Date Ultra Sound Latest Days Gestation 0 10/08/20 15 0 Pre- Flowsheet Flowsheet Date 04/04/2015 Yost Score Blood Edema Fundus Height Fundus Units Glucose Ketones Leukocytes Nitrite Labor Signs Protein Cervic Dilation Cervic Effacement Cervic Station neg none none negative neg Type Weight in lbs Pre/Post Dialysis Refused 138.075945443096 BP Diastolic BP Location Tested BP Systolic BP Type 70 108 sitting Fetus Heart Rate Present Fetus Movement Comments Flowsheet Date 04/26/2015 Yost Score Blood Edema Fundus Height Fundus Units Glucose Ketones Leukocytes Nitrite Labor Signs Protein Cervic Dilation Cervic Effacement Cervic Station Type Weight in lbs Pre/Post Dialysis Refused BP Diastolic BP Location Tested BP Systolic BP Type Fetus Heart Rate Present Fetus Movement Comments Flowsheet Date 04/30/2015 Yost Score Blood Edema Fundus Height Fundus Units Glucose Ketones Leukocytes Nitrite Labor Signs Protein Cervic Dilation Cervic Effacement Cervic Station neg none 17 wks none negative none neg Type Weight in lbs Pre/Post Dialysis Refused 137.094980488723 BP Diastolic BP Location Tested BP Systolic BP Type 60 92 sitting Fetus Heart Rate Present A 145 Present Fetus Movement A No Comments n/v/c/diabetes/hypothyroid/v it d/1 week labs/MFM 05/10 ssm amnio level 2 us/dme Flowsheet Date 06/05/2015 Yost Score Blood Edema Fundus Height Fundus Units Glucose Ketones Leukocytes Nitrite Labor Signs Protein Cervic Dilation Cervic Effacement Cervic Station neg none 23 wks none small trace Type Weight in lbs Pre/Post Dialysis Refused 141.13641886031 BP Diastolic BP Location Tested BP Systolic BP Type 50 90 sitting Fetus Heart Rate Present A 143 Present Fetus Movement A Yes Comments refill Lantus, Glyberide and levothyroid. Flowsheet Date 11/01/2015 Yost Score Blood Edema Fundus Height Fundus Units Glucose Ketones Leukocytes Nitrite Labor Signs Protein Cervic Dilation Cervic Effacement Cervic Station Type Weight in lbs Pre/Post Dialysis Refused 131.179462823297 BP Diastolic BP Location Tested BP Systolic BP Type 84 110 sitting Fetus Heart Rate Present Fetus Movement Comments Flowsheet Date 11/15/2015 Yost Score Blood Edema Fundus Height Fundus Units Glucose Ketones Leukocytes Nitrite Labor Signs Protein Cervic Dilation Cervic Effacement Cervic Station Type Weight in lbs Pre/Post Dialysis Refused 129.864078076845 BP Diastolic BP Location Tested BP Systolic BP Type 58 100 Fetus Heart Rate Present Fetus Movement Comments Flowsheet Date 12/06/2015 Yost Score Blood Edema Fundus Height Fundus Units Glucose Ketones Leukocytes Nitrite Labor Signs Protein Cervic Dilation Cervic Effacement Cervic Station Type Weight in lbs Pre/Post Dialysis Refused 129.009817160375 BP Diastolic BP Location Tested BP Systolic BP Type 62 96 sitting Fetus Heart Rate Present Fetus Movement Comments Flowsheet Date 01/28/2016 Yost Score Blood Edema Fundus Height Fundus Units Glucose Ketones Leukocytes Nitrite Labor Signs Protein Cervic Dilation Cervic Effacement Cervic Station Type Weight in lbs Pre/Post Dialysis Refused 127.739582248771 BP Diastolic BP Location Tested BP Systolic BP Type 60 100 sitting Fetus Heart Rate Present Fetus Movement Comments Flowsheet Date 05/18/2016 Yost Score Blood Edema Fundus Height Fundus Units Glucose Ketones Leukocytes Nitrite Labor Signs Protein Cervic Dilation Cervic Effacement Cervic Station Type Weight in lbs Pre/Post Dialysis Refused 135.069818357833 BP Diastolic BP Location Tested BP Systolic BP Type 58 88 sitting Fetus Heart Rate Present Fetus Movement Comments Menstrual History Last Menstrual Date Menses Monthly On Bcp Conception Prior Menses Frequency Hcg Plus Date Menarche Onset Age 0301/01/2015 true false 28 14 Genetic Screening And Infection History Question Response Note Patient's Age Will Be 35 Yea rs Or Older At Estimated Date of Delivery false Thalassemia (Welsh, Greenlandic, Mediterranean, Or Background): MCV < 80 false Neural Tube Defect (Meningom yelocele, Spina Bifida, Or Anencephaly) false Congenital Heart Defect false Down Syndrome false Jamal-Sachs (eg, Muslim, Cajun, Hong Konger-[place]) f alse David Disease false Sickle Cell Disease Or Trait () false Hemophilia Or Other Blood Disorders false Muscular Dystrophy false Cystic Fibrosis false Mariella's Chorea false Mental Retardation/Autism false If Yes, Was Person Tested For Fragile X? false Other Inherited Genetic Or Chromosomal Disorder false Maternal Metabolic Disorder (eg, Type 1 Diabetes , PKU) false Patient Or Baby's Father Had A Child With Defects Not Listed Above false Recurrent Loss, Or A Stillbirth false Medications (including Suppl ements, Vitamins, Herbs, OTC Drugs), Illicit/Recreational Drugs, Alcohol true v itamin If Yes, Agent(s) And Strength/Dosage false Any Other Genetic History false Live With Someone With TB Or Exposed To TB false Patient Or Partner Has History Of Genital Herpes false Rash Or Viral Illness Since Last Menstrual Perio d false History Of STD, Gonorrhea, Chlamydia, HPV, Syphi lis false Other Infection History false Plans and Education First Trimester Discussed Date Discussion Item Discussion Note Discuss ed By 04/26/2015 Anticipated course of care [email or web address] 04/26/2015 Alcohol [email or web address] 04/26/2015 Intimate partner violence ishan [email or web address] 04/26/2015 Environmental/work hazards sarmad [email or web address] 04/26/2015 Screening for aneuploidy femi rrvon27 04/26/2015 Nutrition counseling ; special diet; dietary precautions (mercury, listeriosis) [id number] 04/26/2015 Childbirth classes/h ospital facilities [id number] 04/26/2015 HIV and other routin e tests [id number] 04/26/2015 Risk factors identif ied by history 04/26/2015 Weight gain counseling mary ann et04/26/2015 Exercise [email or web address] 04/26/2015 Teratogens [id number] 04/26/2015 Use of any medicatio ns (including supplements, vitamins, herbs, or OTC drugs) Medication list given [id number] 04/26/2015 04/26/2015 Sexual activity 04/26/2015 Tobacco/smoking cess ation counseling (ask, advise, assess, assist, and arrange) monica 04/26/2015 Illicit/recreational drugs Denies sarmad [email or web address] 04/26/2015 Dental care [email or web address] 04/26/2015 Travel [id number] 04/26/2015 Seat belt use [id number] 04/26/2015 Indications for ultrasonography [id number] 04/26/2015 Avoidance of saunas or hot tubs [email or web address] 04/26/2015 Toxoplasmosis precau tions (cats/raw meat) [email or web address] Second Trimester Discussed Date Discussion Item Discussion Note Discuss ed By Third Trimester Discussed Date Discussion Item Discussion Note Discuss ed By Delivery Information Delivery Date Delivery Type Labor Anesthesia Weeks Gestation Incision Type Labor Labor Length Hrs Delivered By Post Complications Tubal Sterilization Discharge Date Comments 5 37.1 C/D true Discharge Information Feeding Method Contraceptive Method Maternal HG B and HCT Levels
--- OUTSIDE RECORDS SUMMARY | 2025-01-25 08:48 | XMS_ITS | Clinical Summary ---
Author Organization [place] [id number] [facility] Address [facility] [place] [address] Care Team Providers Care Cleaner Greaser Name Role Phone Dian Salcido Primary Care Provider + No, Physician Unavailable Allergies No known active allergies Medications levothyroxine (SYNTHROID) 137 mcg tablet 150 mcg 5 Active Levemir FlexPen 100 unit/mL (3 mL) pen for injection INJECT 35 UNITS UNDER THE SKIN TWICE DAILY 4 Active ibuprofen (ADVIL,MOTRIN) 600 mg tablet TAKE ONE TABLET BY MOUTH THREE TIMES DAILY NEEDED FOR PAIN. IN THE MORNING, MID-DAY, AT BEDTIME 4 Active ergocalciferol (VITAMIN D) 50,000 unit capsule TAKE ONE CAPSULE BY MOUTH EVERY WEEK FOR VITAMIN DEFICIENCY 4 Active FeroSuL 325 mg (65 mg iron) tablet TAKE ONE TABLET BY MOUTH EVERY DAY IN THE MORNING FOR IRON REPLACEMENT 4 Active FreeStyle Grant 3 Sensor deviceIndicatio ns:Type 2 diabetes mellitus without complication, with long-term current use of insulin (HCC) Use to check blood sugar 4 times a day and as needed. Replace sensor every 14 days. 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 Gender Identity Not on file Sexual Orientation Not on file Obstetrics History Last Filed Vital Signs Vital Sign Reading Time Taken Comments Blood Pressure 130/83 04/17/2024 4:39 PM CDT Pulse 91 04/17/2024 4:39 PM CDT Temperature 36.8 C (98.3 F) 04/17/2024 4:39 PM CDT Respiratory Rate - - Oxygen Saturation 100% 08/12/2018 5:42 PM CDT Inhaled Oxygen Concentration - - Weight 67.3 kg (148 lb 6.4 oz) 04/17/2024 4:39 P M CDT Height 152.4 cm (5') 04/17/2024 4:39 PM CDT Body Mass Index 28.98 04/17/2024 4:39 PM CDT Plan of Treatment Health Maintenance Due Date Last Done Comments Breast Cancer Screening-Mammogram 1977 Cervical Cancer Screening 1977 Colon Cancer Screening-Colonoscopy 1977 Depression Screening 1977 Hepatitis C Screening 1977 Dilated Eye Exam 1977 Foot Exam 1977 Hepatitis B Screening 1995 Regular Well Visit/Exam 18-64 1995 Covid-19 Vaccine (3 2023-2 5 season) 2024 03/01/2021, 02/08/2021 Influenza Vaccine (#1) 2024 2, 08/02/2020, 07/19/2018, Additional history exists Hemoglobin A1C 10/18/2024 04/17/2024, 08/16/2018 Albumin Creatinine Ratio, Urine 04/28/2025 Lipid Panel 04/28/2025 04/28/2024 eGFR 04/28/2025 04/28/2024 DTaP/Tdap/Td Vaccine (2 - Td or Tdap) 07/18/2025 07/18/2015 Pneumococcal vaccine <65 Completed 11/27/2022 Procedures Procedure Name Priority Date/Time Associated Diagnosis Comments EGFR Routine 04/28/2024 7:34 AM CDT Type 2 diabetes mellitus without complication, with long-term current use of insulin (HCC) LIPID PANEL Routine 04/28/2024 7:34 AM CDT Type 2 diabetes mellitus without complication, with long-term current use of insulin (HCC) ALBUMIN CREATININE RATIO, URINE Routine 04/28/2024 7:34 AM CDT Type 2 diabetes mellitus without complication, with long-term current use of insulin (HCC) POCT HEMOGLOBIN A1C Routine 04/17/2024 4 :46 PM CDT Type 2 diabetes mellitus without complication, with long-term current use of insulin (HCC) from Last 3 Months or Most Recently Relevant to Health Maintenance Results * eGFR (04/28/2024 7:34 AM CDT) eGFR >90 >=60 mL/min/1. 73 m2 Comment: Interpretive Data Reference Interval Normal >/= 90 mL/min/1.73m2 Mildly decreased* 60 - 89 mL/min/1.73m2 Mildly to moderately decreased 45 - 59 mL/min/1.73m2 Moderately to severely decreased 30 - 44 mL/min/1.73m2 Severely decreased 15 - 29 mL/min/1.73m2 Kidney Failure < 15 mL/min/1.73m2 *Relative to young adult level Estimated glomerular filtration rate is determined by the 2020 CKD-EPI equation recommended by the National Kidney Foundation (A Unifying Approach to GFR Estimation: Recommendations of the NKF-ASK Task Force on Reassessing the Inclusion of Race in Diagnosing Kidney Disease, JASN 202). The CKD-EPI equation should not be used for patients with unstable renal function and has not been validated in children and those over 70. Current interpretive data was last reviewed 2021. Blood 04/28/2024 7:34 AM CDT 04/28/2024 8:21 AM CDT Grace LYNCH LAB BLOOD ORDERABLES Maria G l Result Performing Organization Address [facility] Co de Phone Number [facility] Department [place] [address] * Albumin Creatinine Ratio, Urine (04/28/2024 7:34 AM CDT) Albumin Ur 36.9 mg/L Comment: Interpretive Data No reference range established. Current interpretive data was last revised 2019. Creatinine Ur 162.2 mg/dL [facility] Comment: Interpretive Data No reference range established. Current interpretive data was last revised 2019. Albumin Creatinine Ratio, Ur 23 1 - 29 mg/g [facility] Urine 04/28/2024 7:34 AM CDT 04/28/2024 8:18 AM CDT Grace LYNCH LAB URINE ORDERABLES Maria G l Result Performing Organization Address [facility] de Phone Number [facility] Department [place] [address] * (ABNORMAL) Lipid panel (04/28/2024 7:34 AM CDT) Cholesterol 210(H) 30 - 199 mg/dL Comment: Interpretive Data Ages < or = 19 years Acceptable: <170 mg/dL Borderline high: 170-199 mg/dL High: >or= 200 mg/dL Ages > or = 20 years Desirable: <200 mg/dL Borderline high: 200-239 mg/dL High: >or= 240 mg/dL Literature References: 1. Expert Panel on Integrated Guidelines for Cardiovascular Health and Risk Reduction in Children and Adolescents. Pediatrics 2011;128:S213 2. NCEP Expert Panel. Circulation 2004;110:227 Current Interpretive Data was last revised on 2018. Triglycerides 71 <=149 mg/dL [facility] Comment: Interpretive Data Ages < or = 9 years Acceptable: <75 mg/dL Borderline high: 75-99 mg/dL High: >or= 100 mg/dL Ages 10 to 20 years Acceptable: <90 mg/dL Borderline high: 90-129 mg/dL High: >or= 130 mg/dL Ages > or = 20 years Desirable: <150 mg/dL Borderline high: 150-199 mg/dL High: 200-499 mg/dL Very high: >or= 499 mg/dL Literature References: 1. Expert Panel on Integrated Guidelines for Cardiovascular Health and Risk Reduction in Children and Adolescents. Pediatrics 2011;128:S213 2. NCEP Expert Panel. Circulation 2004;110:227 Current Interpretive Data was last revised on 2018. HDL 47 >=40 mg/dL [facility] Comment: Interpretive Data Ages < or = 19 years Acceptable: >45 mg/dL Borderline low: 40-45 mg/dL Low: <40 mg/dL Ages > or = 20 years Desirable: >or= 60 mg/dL Low: <40 mg/dL Literature References: 1. Expert Panel on Integrated Guidelines for Cardiovascular Health and Risk Reduction in Children and Adolescents. Pediatrics 2011;128:S213 2. NCEP Expert Panel. Circulation 2004;110:227 Current Interpretive Data was last revised on 2018. LDL, calculated 149(H) <=129 mg/dL [facility] Comment: Interpretive Data Ages < or = 19 years Acceptable: <110 mg/dL Borderline high: 110-129 mg/dL High: >or= 130 mg/dL Ages > or = 20 years Optimal: <100 mg/dL Near optimal: 100-129 mg/dL Borderline high: 130-159 mg/dL High: >160 mg/dL Literature References: 1. Expert Panel on Integrated Guidelines for Cardiovascular Health and Risk Reduction in Children and Adolescents. Pediatrics 2011;128:S213 2. NCEP Expert Panel. Circulation 2004;110:227 Current Interpretive Data was last revised on 2018. Non-HDL Cholesterol 163 mg/dL [facility] Comment: Interpretive Data Ages < or = 19 years Acceptable: <120 mg/dL Borderline high: 120-144 mg/dL High: >145 mg/dL Ages > or = 20 years When triglycerides are >200 mg/dL, Non-HDL cholesterol is a secondary target of therapy with treatment goals that are 30 mg/dL greater than the LDL cholesterol target. Literature References: 1. Expert Panel on Integrated Guidelines for Cardiovascular Health and Risk Reduction in Children and Adolescents. Pediatrics 2011;128:S213 2. NCEP Expert Panel. Circulation 2004;110:227 Current Interpretive Data was last revised on 2018. Chol/HDL ratio 4 [facility] Blood 04/28/2024 7:34 AM CDT 04/28/2024 8:18 AM CDT Grace LYNCH LAB BLOOD ORDERABLES Maria G l Result [facility] Department [place] [address] * POCT hemoglobin A1c (04/17/2024 4:46 PM CDT) [facility] Signature Hemoglobin A1C, POC 11.2 % Blood 04/17/2024 4:46 PM CDT Grace LYNCH POINT OF CARE TEST ORDERA BLES Final Result from Last 3 Months or Most Recently Relevant to Health Maintenance [place] [address] [employer] Care Teams Cleaner Greaser Relationship Specialty Start Date End Date Dian Salcido PA PCP - General Physician Rack Production Worker 12/23/22 No, Physician 12/23/22
--- OUTSIDE RECORDS SUMMARY | 2025-01-25 08:48 | XMS_ITS | Referral Summary ---
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 The CKD-EPI equation should not be used for patients with unstable renal function and has not been validated in children and those over 70. Current interpretive data was last reviewed 2021. Blood 04/28/2024 7:34 AM CDT 04/28/2024 8:21 AM CDT Grace LYNCH LAB BLOOD ORDERABLES Maria G l Result Performing Organization Address City/State/[facility] Co de Phone Number [facility] Department [place] [address] * Albumin Creatinine Ratio, Urine (04/28/2024 7:34 AM CDT) Albumin Ur 36.9 mg/L Comment: Interpretive Data No reference range established. Current interpretive data was last revised 2019. Creatinine Ur 162.2 mg/dL [facility] Comment: Interpretive Data No reference range established. Current interpretive data was last revised 2019. Albumin Creatinine Ratio, Ur 23 1 - 29 mg/g [facility] Urine 04/28/2024 7:34 AM CDT 04/28/2024 8:18 AM CDT Grace LYNCH LAB URINE ORDERABLES Maria G l Result Performing Organization Address City/State/[facility] Co de Phone Number [facility] Department [place] [address] * (ABNORMAL) Lipid panel (04/28/2024 7:34 AM [...] revised on 2018. Triglycerides 71 <=149 mg/dL [facility] Comment: Interpretive Data Ages < or = [...] revised on 2018. HDL 47 >=40 mg/dL [facility] Comment: Interpretive Data Ages < [...] on 2018. LDL, calculated 149(H) <=129 mg/dL [facility] Comment: Interpretive Data Ages < [...] revised on 2018. Non-HDL Cholesterol 163 mg/dL [facility] Comment: Interpretive Data Ages < [...] last revised on 2018. Chol/HDL ratio 4 [facility] Blood 04/28/2024 7:34 AM CDT 04/28/2024 8:18 AM CDT Grace LYNCH LAB BLOOD ORDERABLES Maria G l Result [facility] Department [place] [address] * POCT hemoglobin A1c (04/17/2024 4:46 PM CDT) Hemoglobin A1C, POC 11.2 % Blood 04/17/2024 4:46 PM CDT Grace LYNCH POINT OF CARE TEST ORDERA BLES Final Result from Last 3 Months or Most Recently Relevant to Health Maintenance Insurance Member Subscriber Plan / Payer (Ef fective 2022-Present) Name:Airam Vargas Relation to Subscriber:Self Name:Airam Vargas Payer ID:[id number] Group ID:Not on file Type:[place] Address: [address] [place] Member Subscriber Plan / Payer (Ef fective 2022-Present) Name:Airam Vargas Relation to Subscriber:Self Name:Airam Vargas Payer ID:[id number] Group ID:Not on file Type:[place] Address: [address] Care Teams Migratory Farm Hand Relationship Specialty Start Date End Date Dian Salcido PA PCP - General Physician Mix Chemist 12/23/22 No, Physician 12/23/22
--- OUTSIDE RECORDS SUMMARY | 2025-01-25 08:48 | XMS_ITS | Data Portability ---
Author Organization [facility] [place] Address [address] [place] [address] [place] [address] Assessment Encounter Date Assessment Date Assessment LastModified by Organization Details LastModified Time 01/13/2024 01/13/2024 This patient is a 48 -year-old female with pelvic pain. We have agreed to complete the evaluation with pelvic ultrasound. The patient will return after the pelvic ultrasound to discuss those findings and to develop a treatment plan. A comprehensive history and physical exam was performed today. We spent over 25 minutes [id number]. The patient was given precautions. She will contact clinic if pelvic pain increases in frequency or intensity. Also notify clinic of any new symptoms associated with pelvic pain. She does not appear to have an acute pelvic infection today, but was asked to contact us Immediately with nausea, vomiting, fever, chills. [email or web address] Not available 01/13/2024 17:58:51 Plan of Treatment Reminders Order Date Submit Date Provider Last Modified By Organization Details Last Modified Time Details Appointments None recorded. Lab None recorded. Referral gastroenter ologist referral 2023 024 [facility], [address], [address], [place], [address], 05:01:40 Procedures None recorded. Surgeries None recorded. Imaging US, pelvis 2023 024 [email or web address] [facility], [address], [place], [address], 09:15:29 US, transvagina l 2023 024 [email or web address] [facility], [address], [place], [address], 4 09:15:26 US, pelvis, complete 2023 024 [facility], [address], [place], [address], 4 13:47:04 Medication Orders None recorded. Patient TargetsNo targets recorded. Patient InstructionsNo instructions recorded. Reason for Referral Grounds Person Referral for Right lower quadrant pain Referring Physician: Satya Dahl, COOKING CASING AND DRYING SUPERVISOR, Encounter Date: 02/09/2024 Results Created Date Observation Date Name Description Value Unit Range Abnormal Flag Note LastModifiedBy Organization Detail LastModifiedTime 01/20/20 24 01/20/2024 US, pelvi s No observ ation record ed. [facility] [address], [place], [address], 01/26/2024 11:38:39 01/20/20 24 01/21/2024 US, pelvi s No observ ation record ed. [facility] [address], [place], [address], 01/21/2024 17:50:46 01/20/20 24 01/21/2024 US, trans vagin al No observ ation record ed. [facility] [address], [place], [address], 01/21/2024 17:50:55 Result Notes None recorded. Procedures Surgical History Date Name Laterality Status Provider Name and Address Organization Details Recorded Time Date of Last Mammogram completed Marisel Matos [facility] 01/13/2024 17:33:05 Date of Last Colonoscopy completed Marisel Matos [facility] 01/13/2024 17:34:33 6 Thyroid Surgery completed [facility] 01/13/2024 17:39:34 5 Caesarean Section completed [facility] 01/13/2024 17:39:18 8 Caesarean Section completed [facility] 01/13/2024 17:39:13 6 Caesarean Section completed [facility] 01/13/2024 17:39:09 4 Caesarean Section completed [facility] 01/13/2024 17:39:04 9 Ovarian Cystectomy completed [facility] 01/13/2024 17:40:09 Imaging Results Imaging Date Name Status LastModified by Organization Details LastModified Time 01/20/2024 US, pelvis completed [address], [place], [address], 01/26/2024 11:38:39 01/21/2024 US, pelvis completed [place] [address], [place], [address], 01/21/2024 17:50:46 01/21/2024 US, transvaginal completed [facility] m[facility] [address], [place], [address], 01/21/2024 17:50:55 Procedure Notes None recorded. Medical Equipment None Reported. Allergies No known drug allergies Medications Name Sig Start Date Stop Date Status Note LastModified by Organization Details LastModified Time insulin aspar prot-insulin aspart 100 unit/mL (70-30) subcutaneous pen Inject by subcutaneou s route. active Not Available Not Available No t Available Vitamin C active Not Available Not Katia ilable Not Available Iron (ferrous sulfate) active Not Available Not Available Not Available levothyroxin e 112 mcg capsule Take 1 capsule every day by oral route. active Not Available Not Available No t Available Vitals Date Recorded Body height Body mass index (BMI) Body weight Systolic blood pressure Diastolic blood pressure Provider Name and Address Organization Details Last Updated DateTime 01/13/2024 154.94 cm 28 kg/m2 09521.67 g 133 mm[Hg] 81 mm[Hg] Marisel Matos [facility] 4 17:29:50 Date Recorded Body height Body mass index (BMI) Body weight Systolic blood pressure Diastolic blood pressure Provider Name and Address Organization Details Last Updated DateTime 02/09/2024 154.94 cm 28.2 kg/m2 56348.26 g 145 mm[Hg] 83 mm[Hg] Diane Richardson [facility] 4 16:06:01 Social History Question Answer Notes LastModified by Organizat ion Details LastModified Time Tobacco Smoking Status Never Smoker Marisel Matos null, [facility] 01/13/2024 17:38:08 What Is Your Level Of Alcohol Consumption? None Information not available 01/13/2024 Are You Blind Or Do You Have Difficulty Seeing? No Information n ot available 01/13/2024 In The 14 Days Before Symptom Onset, Have You Had Close Contact With A Laboratory-confirm ed COVID-19 While That Case Was Ill? No Information n ot available 01/13/2024 In The 14 Days Before Symptom Onset, Have You Had Close Contact With A Person Who Is Under Investigation For COVID-19 While That Person Was Ill? No Information not available 01/13/2024 Have You Been To An Area Known To Be High Risk For COVID-19? No Information not available 01/13/2024 Are You Deaf Or Do You Have Serious Difficulty Hearing? No Information not available 01/13/2024 Are There Any Guns Present In Your Home? No Information not available 01/13/2024 Are You Sexually Active? Yes Information not available 01/13/2024 Do You Have Smoke And Carbon Monoxide Detectors In Your Home? Yes Information not available 01/13/2024 Do You Use Any Illicit Or Recreational Drugs? No Information not available 01/13/2024 Do You Use Sunscreen Routinely? No Information not available 01/13/2024 Sex: Unknown Functional Status Question Answer Note LastModified by Organizat ion Details LastModified Time Do you have difficulty walking or climbing stairs? No Information not available 01/13/2024 Are you able to walk? YESWOREST Information not available 01/13/2024 Are you able to care for yourself? Yes Information not available 01/13/2024 Do you have difficulty dressing or bathing? No Information not available 01/13/2024 Mental Status None recorded. Family History Relationship Description Onset Age of this Age Resolved Age Notes LastModified by Organization Details LastModified Time Father No current problems or disability Not available 01/12 17:37:50 Mother No current problems or disability Not available 01/12 17:37:50 Medical History Condition Response Thyroid Problems Y Diabetes Y Gynecological History Statement/Question Response Abnormal Pap N Flow Heavy Date of Last Mammogram 12/10/2023 Date of LMP 12/21/2023 Was last menstrual period normal Y STIs/STDs N HPV Vaccine N Duration of Flow (days) 5 Current Control Method None Are cycles usually normal Y Date of Last Colonoscopy 11/09/2023 Frequency of Cycle (Q days) 28 Sexually Active? Y Menses Monthly Y Age of first menstrual cycle 16 Date of Last Pap Smear Sexual Problems? N LMP Definite Obstetrics History GPAL:G 5 P 0 0 0 4 Type Value Living 4 Total 5 Past Encounters Encounter ID Performer Location Encounter Start Date Encounter Closed Date Diagnosis/Indication Diagnosis SNOMED-CT Code Diagnosis ICD10 Code Diagnosis Note [id number] Kamille Martin , [facility] [address] [address] 01/13/2024 17:16:07 02/03/2024 14:55:02 Pain in pelvis 17190195 R10.2 Today with the help of patients daughter for interpreta tion; we agreed to a TVUS and MD consult (requests a female MD).Her exam today displays significan t lower right pelvic pain in adnexal region; along with a bulky uterus with irregular contour.Sh makenna is monogamous but we agreed to updated STD screen as part of her pelvic pain work up. Health Hx was reviewed and updated as reported in chart. Time spent in visit is a total of 30 mins with at least 50% of visit consisting of counseling and review of plan of care. Menorrhagia 475159401 N9 2.0 We also discussed her menses.She does not feel her pain has increased by her heavy periods which have been heavier for at least 3yrs now.Would like to discuss options once US completed at her f/u visit. 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 given no R adnexa- recommend GI referral to r/o GI etiology- discussed possible scar tissue causing pain in that area, could consider diagnostic laparoscop y if no other etiology found though there is a risk of worsening scar tissue with subsequent surgeries- follow up PRN Health Concerns Section Related Observation LastModified by Organization Detai ls LastModified Time None Recorded Concern Status LastModified by Organization Details LastModified Time None Recorded Advance Directives Directive None Recorded Payers Encounter Date Sequence Insurance Name Policy Number Policy Salgado Covered Member ID Salgado Member ID Guarantor Name 01/13/2024 1 [place] [facility] Airam Vargas [id number] Airam Vargas 01/20/2024 1 [place] [facility] Airam Vargas [id number] Airam Vargas 02/09/2024 1 [place] [facility] Airam Vargas [id number] Airam Vargas Notes Date Note Type Note Provider Name and Address Organization Details Recorded Time 01/13/2024 text/html Beer-Pelvic PainReported bypatient.Location:r ight (Chronic pelvic pain >2yrs. Lower pelvic pain in adnexal area described as sharp; stabbing or dull ache. Always present. Varies pain level 2-6 out of 10. Feels the intensity of pain is increasing; worse with activity; and unable to lie on her right side b/c the pressure increases her discomfort.) Onset/Timing:>6 months Duration:persistent Quality:sharp; dull; stabbing; aching; pressureNotes:Heavy menses-wants to consider options to help with this. Neg pain of abd/flankNeg urinary sx'sNeg GI sx'sNeg N/V/F/C/DNeg Vag d/c, odor, irritation, itching Daughter present at visit to help with translation. RODOLFO Fermin- [address], [place], [address], [facility] 02/03/2024 14:11:36 02/09/2024 text/html Declined transla tor. Donavan translating. Right sided pain x5 years, worsening over the past 2 years. Almost constant pain now. No relieving or aggravating factors. Having some constipation. No nausea or vomiting. No dysuria or hematuria. PMH: T2DM, hypothyroidism Follows with PCP for diabetes. Mildly good control. SATYA DAHL MD [address], [place], [address], [facility] 02/09/2024 18:21:02 OBGyn Episode Ob Episode Information Episode Created Date Number of Fetuses Patient Bloodtype Patient rh Status Prepregnancy Weight lbs Domestic Partner Domestic Partner Phone Father Name Teletype Installer Status 01/13/20 24 1 CLOSED Fetus Data First Name Last Name Admitted to NICU Weight (g) Sex Living Outcome Pediatric Complications Fetus ID Race Codes Race Delivery Type Full Term [id number] Primary Manas Calculation Initial Manas Date Initial Exam [...] Complications Tubal Sterilization Discharge Date Comments 4 Discharge Information Feeding Method Contraceptive Method Maternal HG B and HCT Levels Ob Episode Information Episode Created Date Number of Fetuses Patient Bloodtype Patient rh Status Prepregnancy Weight lbs Domestic Partner Domestic Partner Phone Father Name Teletype Installer Status 01/13/20 24 1 CLOSED Fetus Data First Name Last Name Admitted to NICU Weight (g) Sex Living Outcome Pediatric Complications Fetus ID Race Codes Race Delivery Type Full Term 22509 Repeat Manas Calculation Initial Manas Date Initial Exam [...] Complications Tubal Sterilization Discharge Date Comments 5 Discharge Information Feeding Method Contraceptive Method Maternal HG B and HCT Levels Ob Episode Information Episode Created Date Number of Fetuses Patient Bloodtype Patient rh Status Prepregnancy Weight lbs Domestic Partner Domestic Partner Phone Father Name Teletype Installer Status 01/13/20 24 1 CLOSED Fetus Data First Name Last Name Admitted to NICU Weight (g) Sex Living Outcome Pediatric Complications Fetus ID Race Codes Race Delivery Type Full Term 83239 Repeat Manas Calculation Initial Manas Date Initial Exam [...] Complications Tubal Sterilization Discharge Date Comments 8 Discharge Information Feeding Method Contraceptive Method Maternal HG B and HCT Levels Ob Episode Information Episode Created Date Number of Fetuses Patient Bloodtype Patient rh Status Prepregnancy Weight lbs Domestic Partner Domestic Partner Phone Father Name Teletype Installer Status 01/13/20 24 1 CLOSED Fetus Data First Name Last Name Admitted to NICU Weight (g) Sex Living Outcome Pediatric Complications Fetus ID Race Codes Race Delivery Type Full Term 25659 Vaginal Delivery Manas Calculation Initial Manas Date Initial Exam [...] Complications Tubal Sterilization Discharge Date Comments 8 Discharge Information Feeding Method Contraceptive Method Maternal HG B and HCT Levels Ob Episode Information Episode Created Date Number of Fetuses Patient Bloodtype Patient rh Status Prepregnancy Weight lbs Domestic Partner Domestic Partner Phone Father Name Teletype Installer Status 01/13/20 24 1 CLOSED Fetus Data First Name Last Name Admitted to NICU Weight (g) Sex Living Outcome Pediatric Complications Fetus ID Race Codes Race Delivery Type Full Term 12535 Repeat Manas Calculation Initial Manas Date Initial Exam [...] Complications Tubal Sterilization Discharge Date Comments 6 Discharge Information Feeding Method Contraceptive Method Maternal HG B and HCT Levels
[2025-01-25 08:57] LABS: Basophils Absolute Auto 0.1 K/mm3 (0.0-0.1); Basophils Percent Auto 0.7 % (0.2-1.2); Eosinophils Absolute Auto 0.3 K/mm3 (0-0.3); Eosinophils Percent Auto 3.7 % (0-4.4); Hematocrit 25.4 % (37.0-47.0); Immature Granulocyte Absolute 0.02 K/mm3 (0.00-0.031); Immature Granulocyte Percent A 0.3 % (0-0.5); Immature Platelet Fraction Pct 12.6 % (0.9-11.2); Lymphocytes Absolute Auto 1.62 K/mm3 (0.9-3.2); Lymphocytes Percent Auto 24.2 % (18.3-44.2); Mean Corpuscular HGB Conc 25.6 g/dl (32-36); Mean Corpuscular Hemoglobin 15.7 pg (26-34); Mean Corpuscular Volume 61.5 fl (80-100); Monocytes Absolute Auto 0.5 K/mm3 (0.1-0.6); Monocytes Percent Auto 7.9 % (2.6-8.5); Neutrophils Absolute Auto 4.2 K/mm3 (1.3-6.7); Neutrophils Percent Auto 63.2 % (45.5-73.1); Platelet Count Result 263 k/mm3 (150-375); Red Blood Count 4.13 M/mm3 (4.2-5.4); Red Cell Distribution Width 20.9 % (11.5-14.5); White Blood Count 6.7 K/mm3 (4.5-10.0)
[2025-01-25 09:12] LABS: Alanine Aminotransferase 22 U/L (6-35); Alkaline Phosphatase 159 U/L (38-126); Anion Gap 10 mmol/L (4-12); Aspartate Amino Transferase 28 U/L (14-36); Bilirubin,Total 0.4 mg/dL (0.2-1.3); Blood Urea Nitrogen 13 mg/dL (7-17); Calcium 8.3 mg/dL (8.4-10.2); Carbon Dioxide 22 mmol/L (22-30); Chloride 102 mmol/L (98-107); Estimated CRCL calculation 89 ml/min; Estimated Glomerular Filt Rate > 60; Glucose 249 mg/dL (65-110); Potassium 4.5 mmol/L (3.4-5.0); Sodium 134 mmol/L (137-145)
[2025-01-25 09:41] LABS: Anisocytosis 2+; Hypochromasia 2+; Ovalocytes 1+; Platelet Estimate Adequate (Adequate); Poikilocytosis 1+; Tear Drop Cells 1+
[2025-01-25 09:42] LABS: Bite Cells 1+; Crenated RBC 1+; Schistocytes None Seen
[2025-01-25 09:59] LABS: Hemoglobin 6.5 g/dL (12.0-15.0)
--- NOTE | 2025-01-25 10:17 | ED.GENADULT ---
HPI - General Adult General Chief complaint: Recheck/Abnormal Lab/Rx Stated complaint: abnormal labs, low hemoglobin Time Seen by Provider: 01/25/25 09:43 Source: patient and family Mode of arrival: ambulatory Limitations: no limitations History of Present Illness HPI narrative: 49 YEARS OLD FEMALE HAD ANNUAL EXAMINATION BY HER FAMILY PHYSICIAN 2 DAYS AGO. PATIENT RECEIVED A PHONE CALL BY HER FAMILY PHYSICIAN TODAY GO TO THE EMERGENCY ROOM BECAUSE OF LOW HEMOGLOBIN. PATIENT IS ASYMPTOMATIC. SHE DENIES ANY FEVER, CHILLS, NAUSEA, VOMITING, LIGHTHEADEDNESS, CHEST PAIN, SHORTNESS OF BREATH. HISTORY OF HYPERLIPIDEMIA, DIABETES, LIGAMENTS DISEASE ON IBUPROFEN FOR THE LAST 2 YEARS, HEAVY MENSTRUAL CYCLES, SHE IS TELLING ME THAT SHE HAVE TO CYCLES A MONTH FOR THE LAST FEW MONTHS, WITH A LOT OF BLOOD CLOTS. PATIENT DOES NOT SMOKE OR DRINK OR USE DRUGS. Related Data Home Medications ?Medication ?Instructions ?Recorded ?Confirmed ?Last Taken ?Type ergocalciferol (vitamin D2) 1,250 1,250 mcg DIRECTED 09/28/23 03/13/24 Unknown History mcg (50,000 unit) capsule insulin detemir U-100 100 unit/mL 100 unit subcut DIRECTED 09/28/23 03/13/24 Unknown History (3 mL) subcutaneous pen (Levemir FlexPen) levothyroxine 137 mcg tablet 137 mcg DIRECTED 09/28/23 03/13/24 Unknown History atorvastatin 40 mg tablet 40 mg DIRECTED 03/13/24 03/13/24 Unknown History Allergies Allergy/AdvReac Type Severity Reaction Status Date / Time No Known Allergies Allergy Verified 01/25/25 09:44 Review of Systems Review of Systems: All systems reviewed & are unremarkable except as noted in HPI and below PMFSH Past Medical History Medical History No pertinent past medical history Social History Social History Smoking status: Never smoker Exam Narrative: GENERAL APPEARANCE: WELL-DEVELOPED, WELL-NOURISHED SKIN: PALE HEAD: NORMOCEPHALIC, NONTRAUMATIC EYES: CLEAR CONJUNCTIVA ENT: OROPHARYNX NORMAL, EARS NORMAL, NOSE NORMAL NECK: SUPPLE, NONTENDER CHEST AND RESPIRATORY: AIRWAY PATENT, NO RESPIRATORY DISTRESS, NO ACCESSORY MUSCLE USE HEART: REGULAR RATE/RHYTHM ABDOMEN: SOFT, NONTENDER, NO ORGANOMEGALY, QUIET BOWEL SOUNDS RECTAL EXAM SHOWED GROSS BLOOD, GUAIAC STOOL IS NEGATIVE, NO HEMORRHOIDS, NO STOOL IN THE RECTAL POUCH VASCULAR: NORMAL PERIPHERAL PULSES, NORMAL CAPILLARY REFILL. MUSCULOSKELETAL: NORMAL RANGE OF MOTION, NONTENDER BACK NEUROLOGIC: ALERT AND ORIENTED ?3, WIND TURBINE BLADE REPAIR TECHNICIAN IS NORMAL TESTED, NO GROSS MOTOR DEFICIT Course Vital Signs Vital signs: Vital Signs Temperature 37.2 C 01/25/25 08:32 Pulse Rate 102 H 01/25/25 08:32 Respiratory Rate 18 01/25/25 08:32 Blood Pressure 138/60 01/25/25 08:32 Pulse Oximetry 100 01/25/25 08:32 Oxygen Delivery Room Air 01/25/25 08:32 Temperature 37.2 C 01/25/25 08:32 Pulse Rate 82 01/25/25 09:28 Respiratory Rate 17 01/25/25 09:28 Blood Pressure 113/57 L 01/25/25 09:31 Pulse Oximetry 100 01/25/25 09:28 Oxygen Delivery Room Air 01/25/25 08:32 Medical Decision Making [facility] Narrative Medical decision making narrative: PATIENT REFERRED TO THE EMERGENCY ROOM BECAUSE OF LOW HEMOGLOBIN, PATIENT IS ASYMPTOMATIC VITAL SIGNS SHOWING HEART RATE OF 102 OTHERWISE INSIGNIFICANT PHYSICAL EXAMINATION CONSISTENT WITH PALE SKIN OTHERWISE INSIGNIFICANT DIFFERENTIAL DIAGNOSIS INCLUDE ANEMIA SECONDARY TO UPPER GI BLEED SECONDARY TO IBUPROFEN USE FOR THE LAST 2 YEARS AND OR SECONDARY TO MENORRHAGIA. BLOOD WORKUP TODAY INCLUDES CBC, CMP SHOWED HEMOGLOBIN 6.5, HEMATOCRIT 25, MCV 61.5 CONSISTENT WITH MICROCYTIC ANEMIA OTHERWISE INSIGNIFICANT ABNORMALITY Vital Signs Vital Signs: Vital Signs Temperature 37.2 C 01/25/25 08:32 Pulse Rate 102 H 01/25/25 08:32 Respiratory Rate 18 01/25/25 08:32 Blood Pressure 138/60 01/25/25 08:32 Pulse Oximetry 100 01/25/25 08:32 Oxygen Delivery Room Air 01/25/25 08:32 Temperature 37.2 C 01/25/25 08:32 Pulse Rate 82 01/25/25 09:28 Respiratory Rate 17 01/25/25 09:28 Blood Pressure 113/57 L 01/25/25 09:31 Pulse Oximetry 100 01/25/25 09:28 Oxygen Delivery Room Air 01/25/25 08:32 Lab Data 01/25/25 08:48 01/25/25 08:48 Labs: Lab Results 01/25/25 Range/Units 08:48 WBC 6.7 (4.5-10.0) K/mm3 RBC 4.13 L (4.2-5.4) M/mm3 Hgb 6.5 L* D (12.0-15.0) g/dL Hct 25.4 L (37.0-47.0) % MCV 61.5 L (80-100) fl MCH 15.7 L (26-34) pg MCHC 25.6 L (32-36) g/dl RDW 20.9 H (11.5-14.5) % Plt Count 263 (150-375) k/mm3 MPV TNP Immature Gran % (Auto) 0.3 (0-0.5) % Neut % (Auto) 63.2 (45.5-73.1) % Lymph % (Auto) 24.2 (18.3-44.2) % [place] % (Auto) 7.9 (2.6-8.5) % Eos % (Auto) 3.7 (0-4.4) % Baso % (Auto) 0.7 (0.2-1.2) % Lymph # (Auto) 1.62 (0.9-3.2) K/mm3 [place] # (Auto) 0.5 (0.1-0.6) K/mm3 Eos # (Auto) 0.3 (0-0.3) K/mm3 Baso # (Auto) 0.1 (0.0-0.1) K/mm3 Abs Immat Gran (auto) 0.02 (0.00-0.031) K/mm3 Absolute Neuts (auto) 4.2 (1.3-6.7) K/mm3 Absolute Nucleated RBC 0.000 (0.0-0.012) K/mm3 Band Neutrophils % Not Reportable Nucleated RBC % 0.0 (0.0-0.2) % Platelet Estimate Adequate (Adequate) % Immature Plt Fraction 12.6 H (0.9-11.2) % Hypochromasia 2+ Poikilocytosis 1+ Anisocytosis 2+ Tear Drop Cells 1+ Ovalocytes 1+ Bite Cells 1+ Crenated Cell 1+ Schistocytes None seen Sodium 134 L (137-145) mmol/L Potassium 4.5 (3.4-5.0) mmol/L Chloride 102 (98-107) mmol/L Carbon Dioxide 22 (22-30) mmol/L Anion Gap 10 (4-12) mmol/L BUN 13 (7-17) mg/dL Creatinine 0.57 L (0.7-1.0) mg/dL Estim Creat Clear Calc 89 ml/min Estimated GFR > 60 (59 - ) Glucose 249 H (65-110) mg/dL Calcium 8.3 L (8.4-10.2) mg/dL Total Bilirubin 0.4 (0.2-1.3) mg/dL AST 28 (14-36) U/L ALT 22 (6-35) U/L Alkaline Phosphatase 159 H (38-126) U/L Total Protein 7.0 (6.3-8.2) g/dL Albumin 4.0 (3.5-5.1) g/dL Blood Type O Positive Antibody Screen Negative Critical Care Time Critical Care Time Critical Care Time: No Discharge Plan Discharge Clinical Impression: Microcytic anemia Patient Disposition: Still a Patient Condition: Stable Patient Language: Citizen Of [place] Prescriptions: No Action levothyroxine 137 mcg tablet 137 mcg DIRECTED ergocalciferol (vitamin D2) 1,250 mcg (50,000 unit) capsule 1,250 mcg DIRECTED Levemir FlexPen 100 unit/mL (3 mL) insulin pen 100 unit SUBCUT DIRECTED atorvastatin 40 mg tablet 40 mg DIRECTED ketotifen fumarate [Zaditor] 0.025 % (0.035 %) drops 1 drp EACH EYE BID PRN (Reason: allergy symptoms) Qty: 5 0RF Rx Instructions: administer at least 8 hours apart Follow-up/Referrals: Omari,SYED Beal [Primary Care Provider] -
--- OUTSIDE RECORDS SUMMARY | 2025-01-25 10:20 | XMS_ITS | Referral Summary ---
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 Current interpretive data was last revised 2019. Creatinine Ur 162.2 mg/dL [facility] Comment: Interpretive Data No reference range established. Current interpretive data was last revised 2019. Albumin Creatinine Ratio, Ur 23 1 - 29 mg/g [facility] Urine 04/28/2024 7:34 AM CDT 04/28/2024 8:18 AM CDT Grace LYNCH LAB URINE ORDERABLES Maria G l Result Performing Organization Address City/State/[facility] Co de Phone Number [facility] Department [place] [address] * (ABNORMAL) Lipid panel (04/28/2024 7:34 AM [...] on 2018. Triglycerides 71 <=149 mg/dL [facility] Comment: Interpretive Data Ages < or [...] revised on 2018. HDL 47 >=40 mg/dL [facility] Comment: Interpretive Data Ages < or [...] on 2018. LDL, calculated 149(H) <=129 mg/dL [facility] Comment: Interpretive Data Ages < or [...] revised on 2018. Non-HDL Cholesterol 163 mg/dL [facility] Comment: Interpretive Data Ages < or [...] last revised on 2018. Chol/HDL ratio 4 [facility] Blood 04/28/2024 7:34 AM CDT 04/28/2024 8:18 AM CDT Grace LYNCH LAB BLOOD ORDERABLES Maria G l Result [facility] Department [place] [address] * POCT hemoglobin A1c (04/17/2024 4:46 PM CDT) Hemoglobin A1C, POC 11.2 % Blood 04/17/2024 4:46 PM CDT Grace LYNCH POINT OF CARE TEST ORDERA BLES Final Result from Last 3 Months or Most Recently Relevant to Health Maintenance Insurance Member Subscriber Plan / Payer (Ef fective 2022-Present) Name:Airam Vargas Relation to Subscriber:Self Name:Airam Vargas Payer ID:[id number] Group ID:Not on file Type[place] Address: [address] [place] Member Subscriber Plan / Payer (Ef fective 2022-Present) Name:Airam Vargas Relation to Subscriber:Self Name:Airam Vargas Payer ID:[id number] Group ID:Not on file Type[place] Address: [address] Care Teams Herbarium Curator Relationship Specialty Start Date End Date Dian Salcido PA PCP - General Physician Commercial Litigation Paralegal 12/23/22 No, Physician 12/23/22
--- OUTSIDE RECORDS SUMMARY | 2025-01-25 10:20 | XMS_ITS | Clinical Summary ---
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 Co de Phone Number [facility] Department [place] [address] * Albumin Creatinine Ratio, Urine (04/28/2024 7:34 AM CDT) Albumin Ur 36.9 mg/L Comment: Interpretive Data No reference range established. Current interpretive data was last revised 2019. Creatinine Ur 162.2 mg/dL [facility] Comment: Interpretive Data No reference range established. Current interpretive data was last revised 2019. Albumin Creatinine Ratio, Ur 23 1 - 29 mg/g [facility] Urine 04/28/2024 7:34 AM CDT 04/28/2024 8:18 AM CDT Grace LYNCH LAB URINE ORDERABLES Maria G l Result Performing Organization Address [place]/[facility] de Phone Number [facility] Department [place] [address] * (ABNORMAL) Lipid panel (04/28/2024 7:34 AM [...] revised on 2018. Triglycerides 71 <=149 mg/dL [facility] Comment: Interpretive Data Ages < [...] revised on 2018. HDL 47 >=40 mg/dL [facility] Comment: Interpretive Data Ages < or [...] LDL, calculated 149(H) <=129 mg/dL [facility] Comment: Interpretive Data Ages < or [...] 2018. Non-HDL Cholesterol 163 mg/dL [facility] Comment: Interpretive Data Ages < or [...] last revised on 2018. 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
[2025-01-25] MEDS: SODIUM CHLORIDE 0.9% IV 250 ML 30 ML IV CONT (10:39)
[2025-01-25] MEDS: TUBING, BLOOD SET 1 EACH XX ×2 (10:39→12:27)
[2025-01-25] MEDS: PANTOPRAZOLE SODIUM IV 40 MG VIAL IV PUSH (12:08)
[2025-01-25 12:20] LABS: Hematocrit 28.6 % (37.0-47.0); Hemoglobin 7.7 g/dL (12.0-15.0)
[2025-01-25] MEDS: SODIUM CHLORIDE 0.9% IV 250 ML 30 ML (12:27)
--- NOTE | 2025-01-25 15:05 | P.HP_ITS ---
H&P: HPI History of Present Illness Date/Time: 01/25/25 16:00 Chief Complaint: Low hemoglobin. Narrative: This is a very pleasant 49-year-old female with insulin-dependent type 2 diabetes mellitus, thyroid cancer status post thyroidectomy and radiation, hypothyroidism, and hyperlipidemia blue presented to the emergency department at the instruction of her primary care provider after she was found to have a low hemoglobin on routine lab. She is feeling okay but with further questioning she has noticed increasing fatigue, mild shortness of breath with activities, and occasional racing heart. She has heavy and irregular periods and she has been having cycles every 2 weeks for the last couple of months. She also reports chronic right lower quadrant pain for which she was seeing GI and a colonoscopy revealed hemorrhoids. CT scan in March 2024 which showed uterine fibroids. She denies syncope, near syncope, chest pain, epigastric pain, melena, hematochezia, and hematuria In the ED: Vitals on arrival include a temperature 90? blood pressure 130/60, pulse 102 respiratory rate 18, SpO2 100% room air. Labs were significant for hemoglobin of 6.5, hematocrit 25.4%, MCV 61.5, sodium 134, glucose 249. Stool was Hemoccult negative according to the ED physician. She was transfused unit of packed red blood cells and she was admitted in this setting. Review of Systems Review of Systems: 12 systems were reviewed and are negativ e except for as per HPI. [facility] Past Medical History Medical History Insulin dependent type 2 diabetes mellitus Thyroid cancer (2015) status post thyroidectomy and radiation Hypothyroidism Hyperlipidemia Surgical History Surgical History History of colonoscopy (10/2023) hemorroids History of section History of thyroidectomy (2015) Social History Social History Social History: Surrogate medical decision maker: Donavan Choudhary, significant other. Code status: Full code. Smoking status: Never smoker Alcohol intake: never Substance use: never Substance use type: does not use Do You Feel Safe in your Home?: Yes Lack of Transportation: No Lack of Food: Never True Current Housing: I Have Housing Concerned About Future Housing: No Difficulty Paying Gas/Electric Bills: No Difficulty Paying for Meds: No Currently Unemployed: No Education: High School Diploma/GED Difficulty w/ Childcare or Family Care: No Additional living arrangements comments: Lives with family in [place]. Spiritual care concerns: No Meds Home Medications and Allergies Home Medications ?Medication ?Instructions ?Recorded ?Confirmed ?Type ergocalciferol (vitamin D2) 1,250 1,250 mcg PO WEEKLY 09/28/23 01/25/25 History mcg (50,000 unit) capsule levothyroxine 137 mcg tablet 137 mcg PO QAM 09/28/23 01/25/25 History atorvastatin 40 mg tablet 40 mg PO QPM 03/13/24 01/25/25 History diphenhydramine HCl 25 mg capsule 25 mg PO Q6H PRN allergy symptoms 01/25/25 01/25/25 History (Allergy Medication) empagliflozin 25 mg tablet 25 mg PO QAM 01/25/25 01/25/25 History (Jardiance) ibuprofen 600 mg tablet 600 mg PO TID PRN pain 01/25/25 01/25/25 History insulin aspart U-100 100 unit/mL 20 unit subcut DAILY 01/25/25 01/25/25 History (3 mL) subcutaneous pen (Novolog FlexPen U-100 Insulin aspart) insulin glargine 100 unit/mL 35 unit subcut BID 01/25/25 01/25/25 History subcutaneous solution (Lantus U-100 Insulin) Allergies Allergy/AdvReac Type Severity Reaction Status Date / Time No Known Allergies Allergy Verified 01/25/25 09:44 Vital Signs Vital Signs - 24 hr 01/25/25 08:32 01/25/25 09:27 01/25/25 09:28 Temperature 99 F Pulse Rate 102 H 82 Respiratory Rate 18 18 17 Blood Pressure 138/60 Pulse Oximetry 100 99 100 Oxygen Delivery Room Air 01/25/25 09:31 01/25/25 10:26 01/25/25 10:37 Temperature 98 F Pulse Rate 89 92 Respiratory Rate 17 16 Blood Pressure 113/57 L 121/65 126/69 Pulse Oximetry 100 100 Oxygen Delivery 01/25/25 10:53 01/25/25 11:53 01/25/25 12:03 Temperature 97.9 F 97.9 F 97.9 F Pulse Rate 86 82 81 Respiratory Rate 15 18 18 Blood Pressure 126/66 142/68 H 123/61 Pulse Oximetry 100 99 97 Oxygen Delivery 01/25/25 12:21 01/25/25 12:40 01/25/25 12:45 Temperature 97.9 F 98 F 97.3 F L Pulse Rate 81 92 81 Respiratory Rate 17 16 20 Blood Pressure 126/51 L 114/56 L 138/66 Pulse Oximetry 100 98 100 Oxygen Delivery 01/25/25 12:47 01/25/25 13:35 Temperature 97.5 F L Pulse Rate 82 Respiratory Rate 20 Blood Pressure 139/68 Pulse Oximetry 100 Oxygen Delivery Room Air Exam Narrative: General: Nontoxic-appearing female sitting up in bed in no distress. She is in good spirits. Weight: 60.3 kg. BMI: 28.5 HEENT: PERRL, EOMI. Sclera anicteric. Conjunctiva are pale. Oral mucosa moist. Neck: Supple. Respiratory: Lungs are clear to auscultation bilaterally. Cardiovascular: Regular rate and rhythm with S1-S2. Delete Gastrointestinal: Abdomen is soft and nondistended with positive bowel sounds. She is tender to deep palpation just to the right of the suprapubic region. No guarding or rebound tenderness. Genitourinary: Exam deferred. Skin: Warm and dry. Delete Extremities: No cyanosis, clubbing, or edema. Radial and pedal pulses intact. Neurological: Alert. Cranial nerves 2-12 are grossly intact. Delete No gross focal deficits to casual conversation. Psychiatric: Pleasant and cooperative with normal mood and affect. Judgment and insight intact. H&P: Results Labs Labs: Short CBC 01/25/25 01/25/25 Range/Units 08:48 12:12 WBC 6.7 (4.5-10.0) K/mm3 Hgb 6.5 L* D 7.7 L (12.0-15.0) g/dL Hct 25.4 L 28.6 L (37.0-47.0) % Plt Count 263 (150-375) k/mm3 BMP 01/25/25 08:48 Sodium 134 L Potassium 4.5 Chloride 102 Carbon Dioxide 22 BUN 13 Creatinine 0.57 L Glucose 249 H Calcium 8.3 L Liver Function 01/25/25 Range/Units 08:48 Total Bilirubin 0.4 (0.2-1.3) mg/dL AST 28 (14-36) U/L ALT 22 (6-35) U/L Alkaline Phosphatase 159 H (38-126) U/L Albumin 4.0 (3.5-5.1) g/dL Impressions Pelvis Ultrasound 01/25/25 16:50 IMPRESSION: Fibroid uterus. Follow-up advised. Otherwise, normal pelvic ultrasound. Assessment and Plan Assessment and plan (1) Microcytic anemia: Code(s): D50.9 - Iron deficiency anemia, unspecified Status: Acute (2) Uterine fibroid: Code(s): D25.9 - Leiomyoma of uterus, unspecified Status: Acute (3) Menorrhagia: Code(s): N92.0 - Excessive and frequent menstruation with regular cycle Status: Acute (4) Insulin dependent type 2 diabetes mellitus: Code(s): E11.9 - Type 2 diabetes mellitus without complications; Z79.4 - longterm (current) use of insulin Status: Acute (5) Hypothyroidism: Code(s): E03.9 - Hypothyroidism, unspecified Status: Acute Plan This is a 49-year-old female presented to the emergency department after she was found to have low hemoglobin on labs. Labs, imaging, EKG, and all reports were personally reviewed. She is asymptomatic and this has been an ongoing problem with microcytic indices on labs. Likely as a result of heavy and frequent menstrual cycles however will check stool Hemoccult to rule out occult GI blood loss as she is on chronic ibuprofen which she was instructed to discontinue. She received a unit of packed red blood cells in the ED and her hemoglobin and hematocrit will be trended overnight. Iron studies are pending and she may benefit from iron infusion before discharge. Her last gynecology to see her in consultation for recommendations. Random glucose was 249. Continue basal insulin. Initiate sliding scale insulin, Accu-Cheks, and hypoglycemic protocol. Hemoglobin A1c is pending. Continue levothyroxine and check TSH. Her home medications will be reviewed and resumed as appropriate. Findings and treatment plan were discussed with the patient. Questions were solicited and answered to satisfaction. The patient's medical management will be taken over by the hospitalist team in a.m. Quality VTE Prophylaxis VTE prophylaxis: mechanical ordered If No VTE Prophylaxis Answer both mechanical and pharmacologic: Reason no pharmacologic proph: medical contraindication (profound anemia) The patient has been admitted under observation status. Hospitalist [facility] Advance Care Plan I have confirmed that the patient's Advanced Care Plan is present, code status is documented, or surrogate decision maker is listed in patient medical record.: Yes Medication Reconciliation I have utilized all available resources to obtain, update and review the patients current medications (includes all prescriptions, OTC, herbals, cannabis, and nutritional supplements).: Yes
[2025-01-25 15:43] LABS: Reticulocyte Percent 0.81 % (0.7-4.3); Reticulocytes Absolute 0.04 10^6/uL (0.02-0.10)
[2025-01-25 17:00] LABS: Iron 48 ug/dL (37-170)
[2025-01-25 17:09] LABS: Percent Iron Saturation 10 % (20-50)
[2025-01-25 17:31] LABS: Thyroid Stimulating Hormone Reflex 0.831 uIU/mL (0.465-4.68)
[2025-01-25] MEDS: INSULIN ASPART (*BKC) 100 UNITS/ML SUB-Q (17:31)
[2025-01-25] MEDS: ATORVASTATIN 40 MG TABLET PO (17:31)
[2025-01-25 17:35] LABS: Ferritin 3.89 ng/mL (6.24-137)
[2025-01-25 17:39] LABS: Glucose Point of Care 272 mg/dl (65-105)
[2025-01-25] MEDS: IRON SUCROSE COMPLEX 200 MG in SODIUM CHLORIDE 0.9% IV 100 ML 220 MG IVPB (19:47)
[2025-01-25 19:55] LABS: Transferrin 339 mg/dL (206-381)
[2025-01-25 20:41] LABS: Folic Acid 18.5 ng/mL (2.76->20)
[2025-01-25 20:45] LABS: Hemoglobin A1C 8.2 % (<5.7)
--- NOTE | 2025-01-25 21:00 | P.DS_ITS ---
DS: Admitting Diagnosis Discharge Date 01/25/2025 at 21:00. Admitting Diagnosis Microcytic anemia. Menorrhagia Uterine fibroids. Insulin-dependent diabetes mellitus. Hypothyroidism. DS: Discharge Diagnosis Discharge Diagnosis (1) Microcytic anemia: Code(s): D50.9 - Iron deficiency anemia, unspecified Status: Acute (2) Menorrhagia: Code(s): N92.0 - Excessive and frequent menstruation with regular cycle Status: Acute (3) Uterine fibroid: Code(s): D25.9 - Leiomyoma of uterus, unspecified Status: Acute (4) Insulin dependent diabetes mellitus: Status: Acute (5) Hypothyroidism: Code(s): E03.9 - Hypothyroidism, unspecified Status: Acute (6) Iron deficiency anemia: Code(s): D50.9 - Iron deficiency anemia, unspecified Status: Acute Plan See admission history and physical. DS: Summary Hospital Course Reason for hospitalization: 49-year-old female with heavy and irregular menstrual cycles admitted with profound microcytic anemia as detailed in HPI. Hospital Course: The patient presented after she was found to have a low hemoglobin on outpatient labs. Stool was reportedly Hemoccult negative in the emergency department and anemia at is felt to be related to ongoing blood loss from heavy and irregular menstrual cycles.CBC showed a hemoglobin of 6.5 and a hematocrit of 25.4%. MCV was 61.5, iron 48, TIBC 483,% saturation 10%, ferritin 3.89. She was transfused a unit of packed red blood cells with a repeat hemoglobin and hematocrit of 9.0 and 33% respectively. She was given iron sucrose 200 mg IV. She was afebrile on arrival with stable vital signs which remained so throughout her stay. Random glucose was 249 and hemoglobin A1c today was 8.2% and we discussed that she has room for improvement. Pelvic ultrasound showed a fibroid uterus and she was seen by Dr. Nieves, gynecology who recommends starting the patient on progesterone until the patient sees her in follow-up which is scheduled for January 31, 2025 at 11:15. The patient was eager for discharge and was discharged home in stable condition with prescriptions for ferrous sulfate and norethindrone. Status at Discharge Cognitive/behavioral status at discharge: Stable mood. Functional status at discharge: independent ambulation Overall status at discharge: patient is back to baseline Time Spent with Patient Time attestation: Total time spent providing and/or coordinating discharge services: 30 minutes. Exam Narrative: General: Well-developed, well-nourished, nontoxic appearing female sitting up in bed in no distress. Weight: 60.3 kg. BMI: 28.5 HEENT: PERRL, EOMI. Sclera anicteric. Pale conjunctiva. Oral mucosa moist. Neck: Supple. Respiratory: Lungs are clear to auscultation bilaterally. Cardiovascular: Regular rate and rhythm with S1-S2. Gastrointestinal: Abdomen is soft and nondistended with positive bowel sounds. Mild tenderness to palpation in the right suprapubic region. No guarding or rebound tenderness. Skin: Warm and dry. Extremities: No cyanosis, clubbing, or edema. Radial and pedal pulses intact. Neurological: Alert. Cranial nerves 2-12 are grossly intact. No gross focal deficits to casual conversation. Psychiatric: Pleasant and cooperative with normal mood and affect. Judgment and insight intact. DS: Data Data Completed and Pending Labs on day of discharge: Labs from last 24 hours 01/25/25 01/25/25 01/25/25 17:33 15:27 15:26 WBC RBC Hgb 9.0 L Hct 33.0 L MCV MCH MCHC RDW Plt Count MPV Immature Gran % (Auto) Neut % (Auto) Lymph % (Auto) Evangeline % (Auto) Eos % (Auto) Baso % (Auto) Lymph # (Auto) Evangeline # (Auto) Eos # (Auto) Baso # (Auto) Abs Immat Gran (auto) Absolute Neuts (auto) Absolute Nucleated RBC Band Neutrophils % Nucleated RBC % Platelet Estimate % Immature Plt Fraction Hypochromasia Poikilocytosis Anisocytosis Tear Drop Cells Ovalocytes Bite Cells Crenated Cell Schistocytes Absolute Retic 0.04 Percent Retic 0.81 Immature Retic Fraction 34.0 H Retic Hgb Content 16.0 L Sodium Potassium Chloride Carbon Dioxide Anion Gap BUN Creatinine Estim Creat Clear Calc Estimated GFR Glucose POC Capillary Glucose 272 H Hemoglobin A1c 8.2 H Calcium Iron 48 TIBC 483 H % Saturation 10 L Transferrin 339 Ferritin 3.89 L Total Bilirubin AST ALT Alkaline Phosphatase Total Protein Albumin Vitamin B12 556.0 Folate 18.5 TSH (Reflex) 0.831 Blood Type Antibody Screen Crossmatch 01/25/25 01/25/25 12:12 08:48 WBC 6.7 RBC 4.13 L Hgb 7.7 L 6.5 L* D Hct 28.6 L 25.4 L MCV 61.5 L MCH 15.7 L MCHC 25.6 L RDW 20.9 H Plt Count 263 MPV TNP Immature Gran % (Auto) 0.3 Neut % (Auto) 63.2 Lymph % (Auto) 24.2 Evangeline % (Auto) 7.9 Eos % (Auto) 3.7 Baso % (Auto) 0.7 Lymph # (Auto) 1.62 Evangeline # (Auto) 0.5 Eos # (Auto) 0.3 Baso # (Auto) 0.1 Abs Immat Gran (auto) 0.02 Absolute Neuts (auto) 4.2 Absolute Nucleated RBC 0.000 Band Neutrophils % Not Reportable Nucleated RBC % 0.0 Platelet Estimate Adequate % Immature Plt Fraction 12.6 H Hypochromasia 2+ Poikilocytosis 1+ Anisocytosis 2+ Tear Drop Cells 1+ Ovalocytes 1+ Bite Cells 1+ Crenated Cell 1+ Schistocytes None seen Absolute Retic Percent Retic Immature Retic Fraction Retic Hgb Content Sodium 134 L Potassium 4.5 Chloride 102 Carbon Dioxide 22 Anion Gap 10 BUN 13 Creatinine 0.57 L Estim Creat Clear Calc 89 Estimated GFR > 60 Glucose 249 H POC Capillary Glucose Hemoglobin A1c Calcium 8.3 L Iron TIBC % Saturation Transferrin Ferritin Total Bilirubin 0.4 AST 28 ALT 22 Alkaline Phosphatase 159 H Total Protein 7.0 Albumin 4.0 Vitamin B12 Folate TSH (Reflex) Blood Type O Positive Antibody Screen Negative Crossmatch See Detail Imaging Pelvis Ultrasound 01/25/25 16:50 IMPRESSION: Fibroid uterus. Follow-up advised. Otherwise, normal pelvic ultrasound. Procedures/Treatments: Transfusion 1 unit packed red blood cells. Infusion of 200 mg iron sucrose. Discharge Plan Discharge Attending physician on discharge: Mukesh Brower Consulting providers: Dangelo Nieves Discharging Clinician: Stacy Stark Anticipated Discharge Date/Time: 01/25/25 20:41 Patient Disposition: Home Activity: as tolerated Diet: as tolerated Discharge Instructions: DISCHARGE INSTRUCTIONS You were admitted with anemia that is likely due to your heavy periods. Your hemoglobin level has improved after receiving a unit of blood. You were also gi juana IV iron because your iron stores were very low. - Continue taking your iron supplements, now twice a day. - Stop taking ibuprofen. Use acetaminophen for pain. - Dr. Nieves has started you on progesterone which will hopefully slow your bleeding. - She has set up an appointment for you for next Wednesday at 11:15. - Call Dian tomorrow to set up a follow-up appointment with her. Please call or return if you are feeling lightheaded, pass out, have shortness of breath or chest pain, heavy bleeding which will not stop, or with any other questions or concerns. Patient Instructions: Antibiotic Form, Iron Sucrose (By injection) Patient Language: Panamanian Stand Alone Forms: General Discharge Information, Work/School Release IP Follow-up/Referrals: Dangelo Nieves MD [Physician] - Keep Reg. Scheduled Appt. (January 31, 2025 at 11:15) Discharge Medications: New ferrous sulfate 325 mg (65 mg iron) tablet 325 mg PO BID Qty: 60 0RF norethindrone (contraceptive) [Madina] 0.35 mg tablet 0.35 mg PO DAILY Qty: 28 0RF Rx Instructions: Take 1 pill daily until you follow-up with Dr. Nieves Continued levothyroxine 137 mcg tablet 137 mcg PO QAM ergocalciferol (vitamin D2) 1,250 mcg (50,000 unit) capsule 1,250 mcg PO WEEKLY Rx Instructions: once a week atorvastatin 40 mg tablet 40 mg PO QPM insulin glargine [Lantus U-100 Insulin] 100 unit/mL solution 35 unit subcut BID Jardiance 25 mg tablet 25 mg PO QAM diphenhydramine HCl [Allergy Medication] 25 mg capsule 25 mg PO Q6H PRN (Reason: allergy symptoms) insulin aspart U-100 [Novolog FlexPen U-100 Insulin] 100 unit/mL (3 mL) insulin pen 20 unit subcut DAILY Qty: 15 0RF Rx Instructions: Continue to use as per your sliding scale Discontinued ibuprofen 600 mg tablet 600 mg PO TID PRN (Reason: pain) Date of admission: 01/25/25 10:22 Primary Care Provider: OmariDian Admitting Provider: Mukesh Brower Attending physician on admission: Mukesh Brower Condition: Stable
[2025-01-25 21:14] LABS: Glucose Point of Care 181 mg/dl (65-105)
--- NOTE | 2025-01-25 21:58 | P.CONS_ITS ---
Assessment and Plan Assessment and plan (1) Anemia: Code(s): D64.9 - Anemia, unspecified Status: Acute Assessment and Plan: Continue iron. (2) Uterine fibroid: Code(s): D25.9 - Leiomyoma of uterus, unspecified Status: Acute Assessment and Plan: Discussed with her and family what fibroids are, symptoms and possible treatments. (3) Menorrhagia: Code(s): N92.0 - Excessive and frequent menstruation with regular cycle Status: Acute Assessment and Plan: Discussed evaluation of fibroids and need for pap smear and endometrial biopsy. This can be performed outpatient. Discussed various medical options for treatment of symptomatic fibroids to include progesterone only oral contraceptive pills, IUD, Lysteda. Recommend trial of progesterone therapy to start until her endometrial biopsy. She is scheduled for follow up appointment in office next week for endometrial biopsy and pap smear. She voiced understanding. HPI Data of Consult Date/Time: 01/25/25 21:58 Requesting Physician: Mukesh Brower MD Primary Care Provider: Dian Salcido, PA Consult Narrative Reason for consult: History of fibroids and severe anemia. Narrative: Airam Zhao is a 49 year old female admitted due to history of severe anemia. LMP over 3 weeks ago. Her pcp advised to go to ED for transfusion due to hemoglobin of 6.5. Her family was present and interpreted for patient. She has a long history of prolonged heavy menstrual periods. She has clotting and periods last over 7 days. Last two periods have lasted several weeks. Periods are every month. She denies hot flashes. She has not been on medication for this issue previously. Her periods are every month. There may be a history of possible evaluation for heavy periods. Records not available. She denies family history of endometrial cancer. She received blood transfusion. Ultrasound ordered which confirmed fibroid uterus. 12 week size. Normal stripe. Her hemoglobin was stable after transfusion and she was asymptomatic. Primary service with plans for discharge today. [facility] Past Medical History Medical History Insulin dependent type 2 diabetes mellitus Thyroid cancer (2016) status post thyroidectomy and radiation Hypothyroidism Hyperlipidemia Surgical History Surgical History History of colonoscopy (10/2023) hemorroids History of section History of thyroidectomy (2015) Social History Social History Social History: Surrogate medical decision maker: Donavan Choudhary, significant other. Code status: Full code. Smoking status: Never smoker Alcohol intake: never Substance use: never Substance use type: does not use Do You Feel Safe in your Home?: Yes Lack of Transportation: No Lack of Food: Never True Current Housing: I Have Housing Concerned About Future Housing: No Difficulty Paying Gas/Electric Bills: No Difficulty Paying for Meds: No Currently Unemployed: No Education: High School Diploma/GED Difficulty w/ Childcare or Family Care: No Additional living arrangements comments: Lives with family in [place]. Spiritual care concerns: No Meds Home Medications and Allergies Home Medications ?Medication ?Instructions ?Recorded ?Confirmed ?Type ergocalciferol (vitamin D2) 1,250 1,250 mcg PO WEEKLY 09/28/23 01/25/25 History mcg (50,000 unit) capsule levothyroxine 137 mcg tablet 137 mcg PO QAM 09/28/23 01/25/25 History atorvastatin 40 mg tablet 40 mg PO QPM 03/13/24 01/25/25 History diphenhydramine HCl 25 mg capsule 25 mg PO Q6H PRN allergy symptoms 01/25/25 01/25/25 History (Allergy Medication) empagliflozin 25 mg tablet 25 mg PO QAM 01/25/25 01/25/25 History (Jardiance) ibuprofen 600 mg tablet 600 mg PO TID PRN pain 01/25/25 01/25/25 History insulin aspart U-100 100 unit/mL 20 unit subcut DAILY 01/25/25 01/25/25 History (3 mL) subcutaneous pen (Novolog FlexPen U-100 Insulin aspart) insulin glargine 100 unit/mL 35 unit subcut BID 01/25/25 01/25/25 History subcutaneous solution (Lantus U-100 Insulin) Allergies Allergy/AdvReac Type Severity Reaction Status Date / Time No Known Allergies Allergy Verified 01/25/25 09:44 Vital Signs Vital Signs - 24 hr 01/25/25 08:32 01/25/25 09:27 01/25/25 09:28 Temperature 99 F Pulse Rate 102 H 82 Respiratory Rate 18 18 17 Blood Pressure 138/60 Pulse Oximetry 100 99 100 Oxygen Delivery Room Air 01/25/25 09:31 01/25/25 10:26 01/25/25 10:37 Temperature 98 F Pulse Rate 89 92 Respiratory Rate 17 16 Blood Pressure 113/57 L 121/65 126/69 Pulse Oximetry 100 100 Oxygen Delivery 01/25/25 10:53 01/25/25 11:53 01/25/25 12:03 Temperature 97.9 F 97.9 F 97.9 F Pulse Rate 86 82 81 Respiratory Rate 15 18 18 Blood Pressure 126/66 142/68 H 123/61 Pulse Oximetry 100 99 97 Oxygen Delivery 01/25/25 12:21 01/25/25 12:40 01/25/25 12:45 Temperature 97.9 F 98 F 97.3 F L Pulse Rate 81 92 81 Respiratory Rate 17 16 20 Blood Pressure 126/51 L 114/56 L 138/66 Pulse Oximetry 100 98 100 Oxygen Delivery 01/25/25 12:47 01/25/25 13:35 01/25/25 20:00 Temperature 97.5 F L Pulse Rate 82 Respiratory Rate 20 Blood Pressure 139/68 Pulse Oximetry 100 Oxygen Delivery Room Air Room Air 01/25/25 21:01 Temperature 97.4 F L Pulse Rate 65 Respiratory Rate 16 Blood Pressure 121/44 L Pulse Oximetry 96 Oxygen Delivery Exam 2 Const: General: comfortable and no acute distress O rientation/consciousness: oriented to person, oriented to place and oriented to time HENMT: Head: normal to inspection Eyes: General: appearance normal, both eyes and all related structures Neck: Neck: normal visual inspection Resp: Effort & Inspection: normal respiratory effort Auscultation: clear to auscultation bilaterally Cardio: Rate: regular rate Rhythm: regular rhythm GI: Inspection: normal to inspection Other: no mass palpated Extrem: General: no calf tenderness Psych: Mental Status: mental status grossly normal Results Labs 01/25/25 15:26 01/25/25 08:48 Labs: Short CBC 01/25/25 01/25/25 01/25/25 Range/Units 08:48 12:12 15:26 WBC 6.7 (4.5-10.0) K/mm3 Hgb 6.5 L* D 7.7 L 9.0 L (12.0-15.0) g/dL Hct 25.4 L 28.6 L 33.0 L (37.0-47.0) % Plt Count 263 (150-375) k/mm3 BMP 01/25/25 08:48 Sodium 134 L Potassium 4.5 Chloride 102 Carbon Dioxide 22 BUN 13 Creatinine 0.57 L Glucose 249 H Calcium 8.3 L Liver Function 01/25/25 Range/Units 08:48 Total Bilirubin 0.4 (0.2-1.3) mg/dL AST 28 (14-36) U/L ALT 22 (6-35) U/L Alkaline Phosphatase 159 H (38-126) U/L Albumin 4.0 (3.5-5.1) g/dL
== END 2025-01-25 21:49 | disposition home or self-care (01) ==
LOC: ANHED 10:28 → ANH3MEDSUR 11:45
PROVIDERS: Physician Assistant; Admitting Provider Family Medicine; Emergency Provider Emergency Medicine; PCP Physician Assistant; Visit Provider Family Medicine
DX: D50.9 Iron deficiency anemia, unspecified (principal); D25.9 Leiomyoma of uterus, unspecified; N92.0 Excessive and frequent menstruation with regular cycle; E11.9 Type 2 diabetes mellitus without complications; E78.5 Hyperlipidemia, unspecified; E89.0 Postprocedural hypothyroidism; Z85.850 Personal history of malignant neoplasm of thyroid; Z92.3 Personal history of irradiation; Z79.4 Long term (current) use of insulin; Z79.84 Long term (current) use of oral hypoglycemic drugs; Z79.899 Other long term (current) drug therapy
CPT/HCPCS: 36415; 36430; 76856; 80053; 82607; 82728; 82746; 82948; 83036; 83540; 83550; 84443; 84466; 85014; 85018; 85025; 85046; 85055; 86850; 86900; 86901; 86923; 96361; 96374; 96375; 99285; A9270; G0378; G0379; J1756; J1815; J2470; J7050; P9016

== ENCOUNTER 2025-04-05 08:04 | Outpatient (CLI) | payer MEDICAID, SELFPAY ==
[2025-04-05 08:42] LABS: Hematocrit 26.7 % (37.0-47.0); Hemoglobin 7.8 g/dL (12.0-15.0); Immature Platelet Fraction Pct 9.8 % (0.9-11.2); Mean Corpuscular HGB Conc 29.2 g/dl (32-36); Mean Corpuscular Hemoglobin 20.9 pg (26-34); Mean Corpuscular Volume 71.4 fl (80-100); Platelet Count Result 300 k/mm3 (150-375); Red Blood Count 3.74 M/mm3 (4.2-5.4); White Blood Count 6.3 K/mm3 (4.5-10.0)
[2025-04-05 08:56] LABS: Iron 27 ug/dL (37-170)
[2025-04-05 09:06] LABS: Percent Iron Saturation 6 % (20-50)
[2025-04-05 09:30] LABS: Ferritin 4.12 ng/mL (6.24-137)
== END 2025-04-05 08:05 | disposition home or self-care (01) ==
LOC: ANHLAB 08:05
PROVIDERS: PCP Physician Assistant; Visit Provider Obstetrics & Gynecology
DX: D64.9 Anemia, unspecified (principal)
CPT/HCPCS: 36415; 82728; 83540; 83550; 85027; 85055

== ENCOUNTER 2025-05-25 07:17 | Outpatient (CLI) | payer MEDICAID, SELFPAY ==
[2025-05-25 08:19] LABS: Hematocrit 32.0 % (37.0-47.0); Hemoglobin 9.3 g/dL (12.0-15.0); Mean Corpuscular HGB Conc 29.1 g/dl (32-36); Mean Corpuscular Hemoglobin 21.7 pg (26-34); Mean Corpuscular Volume 74.6 fl (80-100); Platelet Count Result 324 k/mm3 (150-375); Red Blood Count 4.29 M/mm3 (4.2-5.4); White Blood Count 7.3 K/mm3 (4.5-10.0)
[2025-05-25 08:45] LABS: Iron 76 ug/dL (37-170)
[2025-05-25 08:55] LABS: Percent Iron Saturation 18 % (20-50)
[2025-05-25 09:26] LABS: Ferritin 24.70 ng/mL (6.24-137)
== END 2025-05-25 07:18 | disposition home or self-care (01) ==
PROVIDERS: Visit Provider Obstetrics & Gynecology
DX: D50.9 Iron deficiency anemia, unspecified (principal)
CPT/HCPCS: 36415; 82728; 83540; 83550; 85027

== ENCOUNTER 2025-08-21 11:34 | Outpatient (CLI) | payer MEDICAID, SELFPAY ==
[2025-08-21 12:05] LABS: Hematocrit 33.2 % (37.0-47.0); Hemoglobin 10.0 g/dL (12.0-15.0); Mean Corpuscular HGB Conc 30.1 g/dl (32-36); Mean Corpuscular Hemoglobin 22.7 pg (26-34); Mean Corpuscular Volume 75.5 fl (80-100); Platelet Count Result 275 k/mm3 (150-375); Red Blood Count 4.40 M/mm3 (4.2-5.4); White Blood Count 7.9 K/mm3 (4.5-10.0)
--- OUTSIDE RECORDS SUMMARY | 2025-08-21 12:09 | XMS_ITS | Clinical Summary ---
Author Organization [facility] [employer] Address [address] [place] [address] Care Team Providers Care Web Page Designer Name Role Phone Unavailable Primary Care Provider Unavailabl e Source Comments [facility] [employer],non-owned Affiliates and Associated Physician Practices is amultiple site organization consisting of ambulatory clinics and hospital sitesin [place], [place], [place] and [place]. This disclosure is being madepursuant to the Care Everywhere program and may not contain all information available regarding this patient. Last updated 18.[facility] [employer] Allergies No known active allergies Medications * Be aware that medications may not be up to date on this document. Alwaysverify current medications with the patient. insulin syringe-needle (BD ULTRAFINE II) 31G X 5/16 1 ML syringe 1 syringe BID. 100 syringe 2 8 Active Glucose Blood (BLOOD GLUCOSE TEST STRIPS) [facility] 5 Active ergocalciferol (DRISDOL) 1.25 MG (43579 UT) capsule Vitamin D2 1,250 mcg (50,000 unit) capsule TAKE 1 CAPSULE BY MOUTH SEMANAL Active Continuous Glucose Sensor (FreeStyle Grant 3 Sensor) [facility] USE TO CHECK BLOOD SUGAR. CHANGE EVERY 14 DAYS 5 Active NovoLOG FLEXPEN pen INJECT THREE UNITS UNDER THE SKIN PER MEAL plus sliding scale correction. Max daily DOSE 20 units Active Lantus SoloStar pen INJECT 38 UNITS UNDER THE SKIN TWICE DAILY EVERY MORNING AND EVERY EVENING FOR DIABETES 5 Active atorvastatin (Lipitor) 40 MG tablet TAKE ONE TABLET BY MOUTH ONCE DAILY AT BEDTIME FOR CHOLESTEROL 5 Active tranexamic acid (Lysteda) 650 MG tablet TAKE 2 TABLETS BY MOUTH THREE TIMES DAILY (IN THE MORNING, AT MID-DAY AND AT BEDTIME) NEEDED Active Sure Comfort Pen [place] 31G X 5 MM needle USE TO INJECT INSULIN FIVE TIMES DAILY 5 Active TRUEplus 5-Bevel Pen [place] 31G X 6 MM MISC USE DIRECTED TWO TIMES A DAY 4 Active levothyroxine (Synthroid) 137 MCG tabletIndicatio ns:Hypothyroidi sm,Malignant Neoplasm of Thyroid Take 1 (one) tablet by mouth daily before breakfast Reasons: Cancer of Thyroid, Underactive Thyroid 90 tablet 4 5 02/13/20 26 Active empagliflozin (Jardiance) 25 MG tablet Take 1 (one) tablet by mouth once daily Active Active Problems Problem Noted Date Diagnosed Date Allergic rhinitis 10/28/2018 Candidiasis 10/28/2018 Hyperemesis 10/28/2018 Hyperlipidemia 10/28/2018 Iron deficiency anemia 10/28/2018 Abnormal mammography 10/28/2018 Menorrhagia 10/28/2018 Missed period 10/28/2018 Papillary thyroid carcinoma 10/28/2018 Overview (10/30/2018): THYROID, TOTAL THYROIDECTOMY, PERM PATH, TOTAL THYROIDECTOMY (C): - PAPILLARY THYROID CARCINOMA, MULTIFOCAL, LARGEST FOCUS 3.3 CM o EXTRACAPSULAR EXTENSION NOT IDENTIFIED o LYMPHOVASCULAR INVASION NOT IDENTIFIED o pT2/pN1b - TWO PARATHYROID GLANDS (RIGHT INFERIOR AND LEFT SUPERIOR) Thyroid nodule 10/28/2018 Type 1 diabetes mellitus 10/28/2018 Type I diabetes mellitus, uncontrolled 9 Vitamin D deficiency 10/28/2018 Unspecified lump in left breast, subareolar /0 03/2018 Diabetes mellitus 10/12/2017 team primary care physician current use of insulin 10/12/2017 Other symptoms and signs inv olving the musculoskeletal system 12/25/2016 Anesthesia of skin 12/25/2016 Pain of left arm 12/25/2016 Postprocedural hypothyroidism 10/07/2016 Type 2 diabetes mellitus without complications 1 12/02/2015 Overview (07/11/2025): IMO 01/10/2025 IMO 07/11/2025 Malignant neoplasm of thyroid gland 09/29/2016 Hypothyroidism 08/28/2016 Resolved Problems Problem Noted Date Diagnosed Date Resolved Date Acute sinusitis 10/28/2018 11/25/2018 Constipation 10/28/2018 11/25/2018 Encounters Date Type Department Care Team Description 08/07/2025 9:10 AM CDT - 08/07/2025 11:59 PM CDT Hospital Encounter [facility] [address] [place] [address] Chirag Hodges MD Discharge Disposition: Home or Self Care 08/07/2025 Travel 06/01/2025 8:19 AM CDT - 06/01/2025 11:59 PM CDT Hospital Encounter [facility] [address] [place] [address] Chirag Hodges MD Discharge Disposition: Home or Self Care 06/01/2025 Travel from Last 3 Months Immunizations Immunization Administration Dates Next Due FLU VACCINE QUAD IIV4 SPLIT 0.25 ML IM 8 FLU VACCINE TRI IIV3 SPLIT PF IM (FLUVIRIN) 11/2017,10/01/2016 INFLUENZA VACCINE 07/18/2015 TDAP (7yrs+) 07/18/2015 Family History Medical History Relation Name Comments Elevated Lipids Mother Hypertension Mother Osteoporosis Mother Thyroid Disease Neg Hx Relation Name Status Comments Mother Social History Tobacco Use Types Packs/Day Years Used Date Smoking Tobacco: Some Days Smokeless Tobacco: Never Tobacco Cessation:Ready to Q uit: Not Asked; Counseling Given: Not Answered Comments:SOMETIMES Alcohol Use Standard Drinks/Week Comments No 0 (1 standard drink = 0.6 oz pur e alcohol) PHQ-2 Answer Date Recorded Patient Health Questionnaire-2 Score 0 02/12/2025 Comments No Sex and Gender Information Value Date Recorded Sex Assigned at Not on file Legal Sex Female 5:19 PM DIRECTOR LEARNING Gender Identity Not on file Sexual Orientation Not on file Last Filed Vital Signs Vital Sign Reading Time Taken Comments Blood Pressure 95/58 02/12/2025 8:42 AM CDT Pulse 72 02/12/2025 8:42 AM CDT Temperature 36.2 C (97.2 F) 01/24/2024 8:13 AM CDT Respiratory Rate 18 07/13/2023 11:24 AM CDT Oxygen Saturation 98% 02/12/2025 8:42 AM CDT Inhaled Oxygen Concentration - - Weight 67.1 kg (148 lb) 02/12/2025 8:42 AM CDT Height 154.9 cm (5' 1) 07/13/2023 11:24 AM CDT Body Mass Index 27.96 07/13/2023 11:24 AM CDT Plan of Treatment Upcoming Encounters Date Type Department Care Team (Late st Contact Info) Description 09/11/2025 9:00 AM DIRECTOR LEARNING Office Visit [facility] - Endocrinology [address] [place] [address], [place] [address] Chirag Hodges MD [address] [place] [address] [place] [address] Health Maintenance Due Date Last Done Comments COLOGUARD (AGES 45-75) - COLON CA SCREENING 1977 COLON MONITORING 1977 COLONOSCOPY - COLON CA SCREENING 1977 CT COLONOGRAPHY - COLON CA SCREENING 1977 Colorectal Cancer Screening 1977 FIT - COLON CA SCREENING 1977 FLEX SIG - COLON CA SCREENING 1977 MAMMOGRAM 1977 HIV SCREENING 1992 HEPATITIS C SCREENING 09/30/1995 HEPATITIS B VACCINE (1 of 3 - 19+ 3-dose series) 1996 PNEUMOCOCCAL VACCINE (1 of 2 - PCV) 1996 PAP with HPV 2007 DIABETES-SERUM CREATININE 04/06/20192017, 01/05/2018, 05/14/2017, Additional history exists DIABETES-FOOT EXAM WITH MONOFILAMENT 04/11/2019 04/11/2018, 04/11/2018 DIABETES RETINOPATHY SCREENING 06/06/2021 06/06/2019, 11/05/2017 DIABETES-HGB A1C 04/12/2023 01/11/2023, 05/2022, 04/06/2018, Additional history exists DIABETES - URINE PROTEIN SCREENING 10/11/2024 01/05/2018 COVID-19 VACCINE ( season) 2025 03/01/2021, 02/08/2021 INFLUENZA VACCINE (#1) 2025 , 08/16/2023, 11/07/2021, Additional history exists DTAP/TDAP/TD VACCINES (2 - Td or Tdap) 07/18/2025 07/18/2015 ZOSTER VACCINE (1 of 2) 2027 DEPRESSION SCREENING Completed 02/12/2025 HIB VACCINE Aged Out No longer eligi ble based on patient's age to complete this topic HPV VACCINE Aged Out No longer eligi ble based on patient's age to complete this topic MENINGOCOCCAL (Group B) VACCINE SHARED DECISION-MAKING Aged Out No longer eligible based on patient's age to complete this topic MENINGOCOCCAL GROUPS A/C/Y/W VACCINE Aged Out No longer eligible based on patient's age to complete this topic Procedures Procedure Name Priority Date/Time Associated Diagnosis Comments THYROGLOBULIN BY CHARITY RFLXED Routine 08/07/2025 9:33 AM CDT Postprocedural hypothyroidism Postoperative hypothyroidism Papillary thyroid carcinoma (HCC) Malignant neoplasm of thyroid gland (HCC) THYROGLOBULIN REFLEX PROFILE Routine 08/07/2025 9:33 AM CDT Postprocedural hypothyroidism Postoperative hypothyroidism Papillary thyroid carcinoma (HCC) Malignant neoplasm of thyroid gland (HCC) TSH Routine 08/07/2025 9:33 AM CDT Postprocedural hypothyroidism Postoperative hypothyroidism Papillary thyroid carcinoma (HCC) Malignant neoplasm of thyroid gland (HCC) THYROGLOBULIN BY CHARITY RFLXED Routine 06/01/2025 8:23 AM CDT Postprocedural hypothyroidism Postoperative hypothyroidism Papillary thyroid carcinoma (HCC) Malignant neoplasm of thyroid gland (HCC) THYROGLOBULIN REFLEX PROFILE Routine 06/01/2025 8:23 AM CDT Postprocedural hypothyroidism Postoperative hypothyroidism Papillary thyroid carcinoma (HCC) Malignant neoplasm of thyroid gland (HCC) TSH Routine 06/01/2025 8:23 AM CDT Postprocedural hypothyroidism Postoperative hypothyroidism Papillary thyroid carcinoma (HCC) Malignant neoplasm of thyroid gland (HCC) HEMOGLOBIN A1C - POINT OF CARE (AMB) [facility] Routine 01/11/2023 Type 2 diabetes mellitus without complication, with long-term current use of insulin BASIC METABOLIC PANEL (CALCIUM TOTAL) Routine 04/06/2018 9:50 AM CDT Papillary thyroid carcinoma Other specified hypothyroidism MICROALB/CREAT RATIO URINE RANDOM PANEL Routine 01/05/2018 10:31 AM CDT from Last 3 Months or Most Recently Relevant to Health Maintenance Results * (ABNORMAL) THYROGLOBULIN REFLEX PROFILE (08/07/2025 9:33 AM CDT) Only the most recent of2 resultswithin the time period is included. Thyroglobulin Antibody 8.7(H) 0.0 - 0.9 IU/mL 08/18/2025 3:08 AM DIRECTOR LEARNING [facility] ([facility]) Comment: Thyroglobulin Antibody measured by Betty Rylee Methodology It should be noted that the presence of thyroglobulin antibodies may not be pathogenic nor diagnostic, especially at very low levels. The assay principal examiner has found that four percent of individuals without evidence of thyroid disease or autoimmunity will have positive TgAb levels up to 4 IU/mL. Blood BLOOD SPECIMEN / Unknown Lab Venipuncture / Unknown 08/07/2025 9:33 AM CDT 08/07/2025 9:46 AM CDT Narrative [facility] ([facility]) - 08/18/2025 3:08 AM DIRECTOR LEARNING Performed at: [address] [place] [address] [address] [place], [place] [id number] Car Rental Sales Assistant: Slava Carmona PhD, Phone: [phone] us Chirag Hodges MD LAB - CHEMISTRY ORDERABLES Final Result [facility] ([facility]) [address] [place] [address], [facility] * THYROGLOBULIN BY CHARITY RFLXED (08/07/2025 9:33 AM CDT) Only the most recent of2 resultswithin the time period is included. Thyroglobulin CHARITY 2.2 ng/mL 3:08 AM [facility] ([facility]) Comment: This test was developed and its performance characteristics determined by [facility]. It has not been cleared or approved by the Food and Drug Administration. Reference Range: Pubertal Children and Adults: <40 According to the National Academy of Clinical Biochemistry, the reference interval for Thyroglobulin (TG) should be related to euthyroid patients and not for patients who underwent thyroidectomy. TG reference intervals for these patients depend on the residual mass of the thyroid tissue left after surgery. Establishing a post-operative baseline is recommended. The assay quantitation limit is 2.0 ng/mL. Blood BLOOD SPECIMEN / Unknown Lab Venipuncture / Unknown 08/07/2025 9:33 AM CDT 08/07/2025 9:46 AM CDT [facility]ative [facility] - 08/18/2025 3:08 AM DIRECTOR LEARNING Performed at: [facility] [employer] [address] [place] [id number] Car Rental Sales Assistant: Riely Henriquez MD, Phone: [phone] Chirag Hodges MD LAB - CHEMISTRY ORDERABLES Final Result Performing Organization Address City/[facility]/ZIP Co de Phone Number [facility]) [address] [place] [address] * TSH (08/07/2025 9:33 AM CDT) Only the most recent of2 resultswithin the time period is included. [facility] TSH 0.908 0.350 - 4.940 uIU/mL 08/07/2025 10:38 AM CDT [facility] Blood BLOOD SPECIMEN / Unknown Lab Venipuncture / Unknown 08/07/2025 9:33 AM CDT 08/07/2025 9:54 AM CDT us Chirag Hodges MD LAB - CHEMISTRY ORDERABLES Final Result Performing Organization Address City/[facility]/ZIP Co de Phone Number [facility] [address] [place] [address], [place] [phone] * HEMOGLOBIN A1C - POINT OF CARE (AMB) [facility] (01/11/2023) [facility] Hemoglobin A1c POCT 8.9 % BLOOD SPECIMEN / Unknown 01/11/2023 us Chirag Hodges MD LAB - POINT OF CARE ORDERAB LES Final Result * (ABNORMAL) BASIC METABOLIC PANEL (CALCIUM TOTAL) (04/06/2018 9:50 AM CDT) Pathologist [facility] BUN 9 7 - 26 mg/dL 04/06/2018 12:16 PM [facility] Creatinine 0.9 0.6 - 1.2 mg/dL 04/06/2018 12:16 PM [facility] Sodium 133(L) 136 - 145 mmol/L 04/06/2018 12:16 PM [facility] Potassium 4.5 3.5 - 4.5 mmol/L 04/06/2018 12:16 PM [facility] Chloride 96(L) 98 - 107 mmol/L 04/06/2018 12:16 PM [facility] CO2 23 22 - 29 mmol/L 04/06/2018 12:16 PM [facility] Glucose 243(H) 70 - 115 mg/dL 04/06/2018 12:16 PM [facility] Calcium 9.2 8.4 - 10.2 mg/dL 04/06/2018 12:16 PM [facility] Anion Gap 19(H) 8 - 18 04/06/2018 12:16 PM [facility] BUN/Creatinine Ratio 10 7 - 23 04/06/2018 12:16 PM [facility] Osmolality Calculated 283 270 - 300 mOsm/kg 04/06/2018 12:16 PM [facility] eGFR >60 >60 mL/min/1.7 3 m2 04/06/2018 12:16 PM [facility] Blood BLOOD SPECIMEN / Unknown Lab Venipuncture / Unknown 04/06/2018 9:50 AM CDT 04/06/2018 11:10 AM CDT us Fabi Deutsch MD LAB - CHEMISTRY ORDERABLES F inal Result [facility] [address] [phone] * MICROALB/CREAT RATIO URINE RANDOM PANEL (01/05/2018 10:31 AM CDT) Albumin Random Urine 5.0 Not Established mcg/mL [facility] Creatinine Urine 112 Not Established mg/dL [facility] Comment:Result obtained by beatriz holley. Urine Albumin/Creati nine Ratio 4 <30 mg/g [facility] Urine specimen (specimen) URINE / Unknown 01/05/2018 10:31 AM CDT 01/05/2018 11:48 AM CDT Fabi Deutsch MD LAB - URINE CHEMISTRY ORDERA BLES Final Result [address] [phone] from Last 3 Months or Most Recently Relevant to Health Maintenance Insurance MEDICAID [place]
--- OUTSIDE RECORDS SUMMARY | 2025-08-21 12:10 | XMS_ITS | Clinical Summary ---
Author Organization [place] [id number] [facility] Address [facility] [place] [address] Care Team Providers Care Building Associate Name Role Phone Dian Salcido Primary Care [...] unit/mL (3 mL) pen for injection INJECT THREE UNITS UNDER THE SKIN PER MEAL plus sliding scale correction. Max daily DOSE 20 units 15 mL Active Active Problems No known active problems Social History Tobacco Use Types Packs/Day Years Used Date Smoking Tobacco: Some Days Cigarettes Tobacco Cessation:Ready to Q uit: Not Asked; Counseling Given: Not Answered Comments Unknown Sex and Gender Information Value Date Recorded Sex Assigned at Not on file Legal Sex Female 10:52 AM INTERNET ARCHITECT Gender Identity Not on file Sexual Orientation [...] Depression Screening 1977 Hepatitis C Screening 1977 Hepatitis B Screening 1995 Regular Well Visit/Exam 18-64 1995 Covid-19 Vaccine (3 - 2024-2 6 season) 2025 03/01/2021, 02/08/2021 Influenza Vaccine (#1) 2025 2, 08/02/2020, 07/19/2018, Additional history exists DTaP/Tdap/Td Vaccine (2 - Td or Tdap) 07/18/2025 07/18/2015 Pneumococcal vaccine <65 Completed 11/27/2022 Insurance IDPA [id number] [place] [id number] Care Teams Building Associate Relationship Specialty Start Date End Date Dian Salcido PA PCP - General Physician Truck Dispatcher 12/23/22 No, Physician 12/23/22
--- OUTSIDE RECORDS SUMMARY | 2025-08-21 12:10 | XMS_ITS | Data Portability ---
Author Organization Luis Enrique DOMINGUEZ Address [address] [place] [address] Care Team Providers Care Telephone Directory Distributor Driver Name Role Phone CARRIESHARMAINE CONNOR Primary Care Provider Assessment Encounter Date Assessment Date Assessment LastModified by Organization Details LastModified Time 01/23/2025 01/23/2025 increase lantus to 38 had mammogram this month Not available 01/23/2025 16:29:41 Plan of Treatment Reminders Order Date Submit Date Provider Last Modified By Organization Details Last Modified Time Details Appointments None record ed. Lab lipid panel, serum 2024 025 PAULINO [facility], [address], [place], [address], 12:22:44 TSH + free T4, serum 2024 025 PAULINO [facility], [address], [place], [address], 13:14:49 CMP, serum or plasma 2024 025 PAULINO [facility], [address], [place], [address], 5 12:22:45 microa lbumin /creat inine, mass ratio, urine 2024 025 PAULINO [facility], [address], [place], [address], 13:14:48 vitami n D, 25-hyd ramon, total, serum 2024 025 PAULINO Marie, [address], [place], [address], 13:14:50 iron + total iron-b inding capaci ty (TIBC) , serum 2024 025 PAULINO Marie, [address], [place], [address], 13:14:49 ferrit in, serum or plasma 2024 025 PAULINO Marie, [address], [place], [address], 13:14:49 CBC w/ auto diff 2024 025 PAULINO Marie, [address], [place], [address], 5 12:22:46 iron + total iron-b inding capaci ty (TIBC) , serum 2024 025 PAULINO Marie, [address], [place], [address], 03:36:30 ferrit in, serum or plasma 2024 025 PAULINO Marie, [address], [place], [address], 5 03:36:31 CBC w/ auto diff 2024 025 PAULINO Marie, [address], [place], [address], 00:08:08 HbA1c (hemog lobin A1c), blood 04/2024 [email or web address] In-Office Order, Internal Use Only DO Not Attach Compendium DO Not Attach Compendium, Do Not Delete/merge, [id number] 16:25:48 CMP, serum or plasma 2024 [facility], [address], [place], [address], 23:11:33 lipid panel, serum 2024 [facility], [address], [place], [address], 23:11:32 iron + total iron-b inding capaci ty (TIBC) , serum 2024 025 [facility], [address], [place], [address], 5 12:26:26 ferrit in, serum or plasma 2024 025 [facility], [address], [place], [address], 12:26:27 CBC w/ auto diff 2024 025 [facility], [address], [place], [address], 5 23:11:34 CMP, serum or plasma 2023 024 [facility], [address], [place], [address], 4 23:07:47 lipid panel, serum 2023 024 [facility], [address], [place], [address], 4 23:07:46 iron + total iron-b inding capaci ty (TIBC) , serum 2023 024 PAULINO [facility], [address], [place], [address], 4 10:15:21 ferrit in, serum or plasma 2023 024 PA[facility], [address], [place], [address], 4 10:15:21 CBC w/ auto diff 2023 024 PAULINO [facility], [address], [place], [address], 4 23:07:48 Referral physic al therap ist referr al 2023 024 [facility], [address] [place], [address], 4 10:47:58 Procedures None record ed. Surgeries None record ed. Imaging MAMMO, screen ing, digita l, bilate ral - Routin e Screen ing 2024 025 [facility], [address] [facility], [facility] [address], [place], [address], 5 09:29:18 Medication Orders Humalo g [employer] (U-100 ) Insuli n 100 unit/m L subcut aneous 2024 025 [employer], [address] [place], [place], [id number], 5 10:43:10 Lantus Solost ar U-100 Insuli n 100 unit/m L (3 mL) subcut aneous pen 2024 025 [employer], [address] [place], [place], [id number], 5 10:43:11 ergoca lcifer ol (vitam in D2) 1,250 mcg (50,00 0 unit) capsul e 2024 025 [facility], [address] [place] [address], [id number], 5 10:43:12 FeroSu l 325 mg (65 mg iron) tablet 2024 025 [facility], [address] [place] [address], [id number], 5 10:43:11 FeroSu l 325 mg (65 mg iron) tablet 2024 025 [facility], [address] [place] [address], [id number], 5 17:53:54 Jardia nce 25 mg tablet 2024 025 [facility], [address] [place] [address], [id number], 5 15:49:56 Lantus Solost ar U-100 Insuli n 100 unit/m L (3 mL) subcut aneous pen 2024 025 [facility], [address] [place] [address], [id number], 5 17:32:03 Jardia nce 25 mg tablet 2023 024 [facility], [address] [place] [address], [id number], 5 17:07:48 ibupro fen 600 mg tablet 2023 024 [facility], [address] [place] [address], [id number], 17:17:34 Kenalo g 40 mg/mL suspen aysha for inject ion 2023 024 Not available 08:54:05 Patient TargetsNo targets recorded. Patient Instructions Encounter Date Encounter Id Patient Instructions Last Modified By Organization Details Last Modified Time 05/15/2024 [id number] A healthy lifestyle: care instructions Not available 05/15/2024 16:07:05 08/13/2025 [id number] A healthy lifestyle: care instructions [email or web address] Not available 08/13/2025 09:23:40 Quitting Tobacco: Care Instructions [email or web address] Not available 08/13/2025 12:30:18 type 2 diabetes: care instructions [email or web address] Not available 08/13/2025 09:23:40 learning about type 2 diabetes [email or web address] Not available 08/13/2025 09:23:40 Reason for Referral Physical Therapist Referral for Peroneal tendinitis of left lower limb Referring Physician: Leonardo Kauf[facility], Encounter Date: 03/30/2024 Results Created Date Observation Date Name Description Value Unit Range Abnormal Flag Note LastModifiedBy Organization Detail LastModifiedTime 03/15/2003/15/2024 HbA1c (hemo globi n A1c), blood HbA1c 10.1 Not Available In-Office Order Internal Use Only DO Not Attach Compendium DO Not Attach Compendium, Do Not Delete/merge, [id number] 03/15/2024 07:37:14 04/17/2004/17/2024 Hemog lobin A1c/H emogl obin. total in Blood hemoglobin A1C, POC 11.2 % Hemog lobin A1C, POC 11.2 % Not Available Not Available 01/23/2025 04:20:30 05/15/2005/16/2024 LIPID PANEL cholesterol, total 251 mg/dL 100-19 9 above high normal Not Available [facility] [address] [place], [address], 05/16/2024 23:07:46 05/15/20 24 05/16/2024 LIPID PANEL triglyceride s 121 mg/dL 0-149 Not Available [facility] Department [address] [place] [address], [address], 05/16/2024 23:07:46 05/15/20 24 05/16/2024 LIPID PANEL HDL cholesterol 51 mg/dL 40-999 Not Available [facility] Department [address] [place] [address], [address], 05/16/2024 23:07:46 05/15/20 24 05/16/2024 LIPID PANEL VLDL cholesterol jamari 24 mg/dL 5-40 Not Available [facility] Department [address] [place] [address], [address], 05/16/2024 23:07:46 05/15/20 24 05/16/2024 LIPID PANEL LDL chol calc ([facility]) 192 mg/dL 0-99 above high normal Not Available [facility] Department [address] [place] [address], [address], 05/16/2024 23:07:46 05/15/20 24 05/16/2024 COMP. METAB OLIC PANEL (14) glucose 90 mg/dL 70-99 Not Available [facility] Department [address] [place] [address], [address], 05/16/2024 23:07:47 05/15/20 24 05/16/2024 COMP. METAB OLIC PANEL (14) BUN 13 mg/dL 6-24 Not Available [facility] Department [address] [place] [address], [address], 05/16/2024 23:07:47 05/15/20 24 05/16/2024 COMP. METAB OLIC PANEL (14) creatinine 0.76 mg/dL 0.76-1 .27 Not Available [facility] Department [address] [place], [address], 05/16/2024 23:07:47 05/15/20 24 05/16/2024 COMP. METAB OLIC PANEL (14) eGFR 98 >=60 Units for eGFR value s are mL/mi n/1.7 3 The eGFR Calcu latio n has not been valid ated for patie nts under the age of 18. If test resul ts are displ ayed for a patie nt under the age of 18, disre idalia that value . Not Available [facility] Department [address] [place] [address], [address], 05/16/2024 23:07:47 05/15/20 24 05/16/2024 COMP. METAB OLIC PANEL (14) BUN/creatini ne ratio 17 9-23 Not Available [facility] Department [address] [place] [address], [address], 05/16/2024 23:07:47 05/15/20 24 05/16/2024 COMP. METAB OLIC PANEL (14) sodium 137 mmol/ L 134-14 4 Not Available [facility] Department [address] [place] [address], [address], 05/16/2024 23:07:47 05/15/20 24 05/16/2024 COMP. METAB OLIC PANEL (14) potassium 4.7 mmol/ L 3.5-5. 2 Not Available [facility] Department [address] [place] [address], [address], 05/16/2024 23:07:47 05/15/20 24 05/16/2024 COMP. METAB OLIC PANEL (14) chloride 100 mmol/ L 96-106 Not Available [facility] Department [address] [place] [address], [address], 05/16/2024 23:07:47 05/15/20 24 05/16/2024 COMP. METAB OLIC PANEL (14) carbon dioxide, total 24 mmol/ L 20-29 Not Available [facility] Department [address] [place] [address], [address], 05/16/2024 23:07:47 05/15/20 24 05/16/2024 COMP. METAB OLIC PANEL (14) calcium 9.1 mg/dL 8.7-10 .2 Not Available [facility] Department [address] [place], [address], 05/16/2024 23:07:47 05/15/20 24 05/16/2024 COMP. METAB OLIC PANEL (14) protein, total 6.8 g/dL 6.0-8. 5 Not Available [facility] Department [address] [place], [address], 05/16/2024 23:07:47 05/15/20 24 05/16/2024 COMP. METAB OLIC PANEL (14) albumin 4.2 g/dL 3.9-4. 9 Not Available [facility] Department [address] [place], [address], 05/16/2024 23:07:47 05/15/20 24 05/16/2024 COMP. METAB OLIC PANEL (14) globulin, total 2.6 g/dL 1.5-4. 5 Not Available [facility] Department [address] [place], [address], 05/16/2024 23:07:47 05/15/20 24 05/16/2024 COMP. METAB OLIC PANEL (14) A/G ratio 1.6 1.2-2. 2 Not Available [facility] Department [address] [place], [address], 05/16/2024 23:07:47 05/15/20 24 05/16/2024 COMP. METAB OLIC PANEL (14) bilirubin, total 0.2 mg/dL 0.0-1. 2 Not Available [facility] Department [address] [place], [address], 05/16/2024 23:07:47 05/15/20 24 05/16/2024 COMP. METAB OLIC PANEL (14) alkaline phosphatase 195 IU/L 44-121 above high normal Not Available [facility] Department [address] [place], [address], 05/16/2024 23:07:47 05/15/20 24 05/16/2024 COMP. METAB OLIC PANEL (14) AST (SGOT) 25 IU/L 0-40 Not Available [facility] Department [address] [place], [address], 05/16/2024 23:07:47 05/15/20 24 05/16/2024 COMP. METAB OLIC PANEL (14) ALT (SGPT) 23 IU/L 0-32 Not Available [facility] Department [address] [place], [address], 05/16/2024 23:07:47 05/15/20 24 05/16/2024 CBC WITH DIFFE RENTI AL/PL ATELE T WBC 6.9 x10e3 /uL 3.4-10 .8 Not Available [facility] Department [address] [place], [address], 05/16/2024 23:07:48 05/15/20 24 05/16/2024 CBC WITH DIFFE RENTI AL/PL ATELE T RBC 4.23 x10e6 /uL 3.77-5 .28 Not Available [facility] Department [address] [place], [address], 05/16/2024 23:07:48 05/15/20 24 05/16/2024 CBC WITH DIFFE RENTI AL/PL ATELE T hemoglobin 8.9 g/dL 11.1-1 5.9 below low normal Not Available [facility] Department [address] [place], [address], 05/16/2024 23:07:48 05/15/20 24 05/16/2024 CBC WITH DIFFE RENTI AL/PL ATELE T hematocrit 33.3 % 34.0-4 6.6 below low normal Not Available [facility] Department [address] [place], [address], 05/16/2024 23:07:48 08/05/20 24 05/16/2024 CBC WITH DIFFE RENTI AL/PL ATELE T MCV 79 fL 79-97 Not Available [facility] Department [address] [place], [address], 05/16/2024 23:07:48 05/15/20 24 05/16/2024 CBC WITH DIFFE RENTI AL/PL ATELE T MCH 21.0 pg 26.6-3 3.0 below low normal Not Available [facility] Department [address] [place], [address], 05/16/2024 23:07:48 05/15/20 24 05/16/2024 CBC WITH DIFFE RENTI AL/PL ATELE T MCHC 26.7 g/dL 31.5-3 5.7 below low normal Not Available [facility] Department [address] [place], [address], 05/16/2024 23:07:48 05/15/20 24 05/16/2024 CBC WITH DIFFE RENTI AL/PL ATELE T RDW 16.2 % 11.5-1 4.5 above high normal Not Available [facility] Department [address] [place], [address], 05/16/2024 23:07:48 05/15/20 24 05/16/2024 CBC WITH DIFFE RENTI AL/PL ATELE T platelets 326 x10e3 /uL 150-45 0 Not Available [facility] Department [address] [place], [address], 05/16/2024 23:07:48 05/15/20 24 05/16/2024 CBC WITH DIFFE RENTI AL/PL ATELE T neutrophils 61 % notest b. Not Available [facility] Department [address] [place], [address], 05/16/2024 23:07:48 05/15/20 24 05/16/2024 CBC WITH DIFFE RENTI AL/PL ATELE T lymphs 29 % notest b. Not Available [facility] Department [address] [place], [address], 05/16/2024 23:07:48 05/15/20 24 05/16/2024 CBC WITH DIFFE RENTI AL/PL ATELE T monocytes 6 % notest b. Not Available [facility] Department [address] [place] [address], [address], 05/16/2024 23:07:48 05/15/20 24 05/16/2024 CBC WITH DIFFE RENTI AL/PL ATELE T eos 3 % notest b. Not Available [facility] Department [address] [place] [address], [address], 05/16/2024 23:07:48 05/15/20 24 05/16/2024 CBC WITH DIFFE RENTI AL/PL ATELE T basos 1 % notest b. Not Available [facility] Department [address] [place] [address], [address], 05/16/2024 23:07:48 05/15/20 24 05/16/2024 CBC WITH DIFFE RENTI AL/PL ATELE T neutrophils (absolute) 4.2 x10e3 /uL 1.4-7. 0 Not Available [facility] Department [address] [place] [address], [address], 05/16/2024 23:07:48 05/15/20 24 05/16/2024 CBC WITH DIFFE RENTI AL/PL ATELE T lymphs (absolute) 2.0 x10e3 /uL 0.7-3. 1 Not Available [facility] Department [address] [place], [address], 05/16/2024 23:07:48 05/15/20 24 05/16/2024 CBC WITH DIFFE RENTI AL/PL ATELE T monocytes(ab solute) 0.4 x10e3 /uL 0.1-0. 9 Not Available [facility] Department [address] [place] [address], [address], 05/16/2024 23:07:48 05/15/20 24 05/16/2024 CBC WITH DIFFE RENTI AL/PL ATELE T eos (absolute) 0.2 x10e3 /uL 0.0-0. 4 Not Available [facility] Department [address] [place], [address], 05/16/2024 23:07:48 05/15/20 24 05/16/2024 CBC WITH DIFFE RENTI AL/PL ATELE T baso (absolute) 0.1 x10e3 /uL 0.0-0. 2 Not Available [facility] Department [address] [place], [address], 05/16/2024 23:07:48 05/15/20 24 05/16/2024 CBC WITH DIFFE RENTI AL/PL ATELE T immature granulocytes 0.1 % notest b. Not Available [facility] Department [address] [place], [address], 05/16/2024 23:07:48 05/15/20 24 05/16/2024 CBC WITH DIFFE RENTI AL/PL ATELE T immature grans (abs) 0.0 x10e3 /uL 0.0-0. 1 Not Available [facility] Department [address] [place], [address], 05/16/2024 23:07:48 05/15/20 24 05/16/2024 CBC WITH DIFFE RENTI AL/PL ATELE T NRBC 0 % 0-0 Not Available [facility] Department [address] [place], [address], 05/16/2024 23:07:48 05/15/20 24 05/17/2024 IRON AND TIBC iron bind.cap.(TI BC) 458 ug/dL 250-45 0 above high normal Not Available [facility] ([facility]) [address] [facility], [place], [address], 05/17/2024 10:15:21 05/15/20 24 05/17/2024 IRON AND TIBC UIBC 445 ug/dL 131-42 5 above high normal Not Available [facility] ([facility]) [address] [place], [address], 05/17/2024 10:15:21 05/15/20 24 05/17/2024 IRON AND TIBC iron 13 ug/dL 27-159 below low normal Not Available [facility] ([facility]) [address] [place], [address], 05/17/2024 10:15:21 05/15/20 24 05/17/2024 IRON AND TIBC iron saturation 3 % 15-55 alert low Not Available [facility] ([facility]) [address] [place], [address], 05/17/2024 10:15:21 05/15/20 24 05/17/2024 ARNULFO TIN ferritin 6 NG/mL 15-150 below low normal Not Available [facility] ([facility]) [address] [place], [address], 05/17/2024 10:15:21 01/24/20 25 01/24/2025 LIPID PANEL cholesterol, total 201 mg/dL 100-19 9 above high normal Not Available [facility] Department [address] [place], [address], 01/24/2025 23:11:32 01/24/20 25 01/24/2025 LIPID PANEL triglyceride s 316 mg/dL 0-149 above high normal Not Available [facility] [address] [place], [address], 01/24/2025 23:11:32 01/24/20 25 01/24/2025 LIPID PANEL HDL cholesterol 39 mg/dL 40-999 below low normal Not Available [facility] [address] [place], [address], 01/24/2025 23:11:32 01/24/20 25 01/24/2025 LIPID PANEL VLDL cholesterol jamari 63 mg/dL 5-40 above high normal Not Available [facility] Department [address] [place] [address], [address], 01/24/2025 23:11:32 01/24/20 25 01/24/2025 LIPID PANEL LDL chol calc (nih) 146 mg/dL 0-99 above high normal Not Available [facility] Department [address] [place] [address], [address], 01/24/2025 23:11:32 01/24/20 25 01/24/2025 COMP. METAB OLIC PANEL (14) glucose 199 mg/dL 70-99 above high normal Not Available [facility] Department [address] [place] [address], [address], 01/24/2025 23:11:33 01/24/20 25 01/24/2025 COMP. METAB OLIC PANEL (14) BUN 17 mg/dL 6-24 Not Available [facility] Department [address] [place] [address], [address], 01/24/2025 23:11:33 01/24/20 25 01/24/2025 COMP. METAB OLIC PANEL (14) creatinine 0.66 mg/dL 0.76-1 .27 below low normal Not Available [facility] Department [address] [place] [address], [address], 01/24/2025 23:11:33 01/24/20 25 01/24/2025 COMP. METAB OLIC PANEL (14) eGFR 109 >=60 Units for eGFR value s are mL/mi n/1.7 3 The eGFR Calcu latio n has not been valid ated for patie nts under the age of 18. If test resul ts are displ ayed for a patie nt under the age of 18, disre idalia that value . Not Available [facility] Department [address] [place] [address], [address], 01/24/2025 23:11:33 01/24/20 25 01/24/2025 COMP. METAB OLIC PANEL (14) BUN/creatini ne ratio 26 9-23 above high normal Not Available [facility] Department [address] [place] [address], [address], 01/24/2025 23:11:33 01/24/20 25 01/24/2025 COMP. METAB OLIC PANEL (14) sodium 135 mmol/ L 134-14 4 Not Available [facility] Department [address] [place] [address], [address], 01/24/2025 23:11:33 01/24/20 25 01/24/2025 COMP. METAB OLIC PANEL (14) potassium 3.8 mmol/ L 3.5-5. 2 Not Available [facility] Department [address] [place] [address], [address], 01/24/2025 23:11:33 01/24/20 25 01/24/2025 COMP. METAB OLIC PANEL (14) chloride 99 mmol/ L 96-106 Not Available [facility] Department [address] [place] [address], [address], 01/24/2025 23:11:33 01/24/20 25 01/24/2025 COMP. METAB OLIC PANEL (14) carbon dioxide, total 20 mmol/ L 20-29 Not Available [facility] Department [address] [place] [address], [address], 01/24/2025 23:11:33 01/24/20 25 01/24/2025 COMP. METAB OLIC PANEL (14) calcium 8.9 mg/dL 8.7-10 .2 Not Available [facility] Department [address] [place] [address], [address], 01/24/2025 23:11:33 01/24/20 25 01/24/2025 COMP. METAB OLIC PANEL (14) protein, total 6.9 g/dL 6.0-8. 5 Not Available [facility] Department [address] [place], [address], 01/24/2025 23:11:33 01/24/20 25 01/24/2025 COMP. METAB OLIC PANEL (14) albumin 4.2 g/dL 3.9-4. 9 Not Available [facility] [address] [place], [address], 01/24/2025 23:11:33 01/24/20 25 01/24/2025 COMP. METAB OLIC PANEL (14) globulin, total 2.7 g/dL 1.5-4. 5 Not Available [facility] [address] [place], [address], 01/24/2025 23:11:33 01/24/20 25 01/24/2025 COMP. METAB OLIC PANEL (14) A/G ratio 2.0 1.2-2. 2 Not Available [facility] [address] [place], [address], 01/24/2025 23:11:33 01/24/20 25 01/24/2025 COMP. METAB OLIC PANEL (14) bilirubin, total 0.3 mg/dL 0.0-1. 2 Not Available [facility] [address] [place], [address], 01/24/2025 23:11:33 01/24/20 25 01/24/2025 COMP. METAB OLIC PANEL (14) alkaline phosphatase 198 IU/L 44-121 above high normal Not Available [facility] Department [address] [place], [address], 01/24/2025 23:11:33 01/24/20 25 01/24/2025 COMP. METAB OLIC PANEL (14) AST (SGOT) 26 U/L 0-40 Not Available [facility] Department [address] [place], [address], 01/24/2025 23:11:33 01/24/2001/24/2025 COMP. METAB OLIC PANEL (14) ALT (SGPT) 19 IU/L 0-32 Not Available [facility] Department [address] [place], [address], 01/24/2025 23:11:33 01/24/20 25 01/25/2025 CBC WITH DIFFE RENTI AL/PL ATELE T WBC 8.0* x10e3 /uL 3.4-10 .8 Not Available [facility] [address] [place], [address], 01/25/2025 00:12:05 01/24/2001/25/2025 CBC WITH DIFFE RENTI AL/PL ATELE T RBC 4.33* x10e6 /uL 3.77-5 .28 Not Available [facility] [address] [place], [address], 01/25/2025 00:12:05 01/24/2001/25/2025 CBC WITH DIFFE RENTI AL/PL ATELE T hemoglobin 7.0* g/dL 11.1-1 5.9 panic low RESUL TS VERIF IED AND GROSSMAN D TO DR SIDDIQI SHARMAINE BY Carmenza Elmore i, MLT AT 2156 ON 01/24. Not Available [facility] Department [address] [place], [address], 01/25/2025 00:12:05 01/24/2001/25/2025 CBC WITH DIFFE RENTI AL/PL ATELE T hematocrit 27.9* % 34.0-4 6.6 below low normal Not Available [facility] Department [address] [place], [address], 01/25/2025 00:12:05 01/24/2001/25/2025 CBC WITH DIFFE RENTI AL/PL ATELE T MCV 64* fL 79-97 below low normal Not Available [facility] [address] [place], [address], 01/25/2025 00:12:05 01/24/2001/25/2025 CBC WITH DIFFE RENTI AL/PL ATELE T MCH 16.2* pg 26.6-3 3.0 below low normal Not Available [facility] [address] [place], [address], 01/25/2025 00:12:05 01/24/2001/25/2025 CBC WITH DIFFE RENTI AL/PL ATELE T MCHC 25.1* g/dL 31.5-3 5.7 below low normal Not Available [facility] [address] [place], [address], 01/25/2025 00:12:05 01/24/2001/25/2025 CBC WITH DIFFE RENTI AL/PL ATELE T RDW 21.1* % 11.5-1 4.5 above high normal Not Available [facility] [address] [place], [address], 01/25/2025 00:12:05 01/24/2001/25/2025 CBC WITH DIFFE RENTI AL/PL ATELE T platelets 263* x10e3 /uL 150-45 0 Not Available [facility] [address] [place], [address], 01/25/2025 00:12:05 01/24/2001/25/2025 CBC WITH DIFFE RENTI AL/PL ATELE T neutrophils 65* % notest b. Not Available [facility] [address] [place], [address], 01/25/2025 00:12:05 01/24/2001/25/2025 CBC WITH DIFFE RENTI AL/PL ATELE T lymphs 26* % notest b. Not Available [facility] [address] [place], [address], 01/25/2025 00:12:05 01/24/2001/25/2025 CBC WITH DIFFE RENTI AL/PL ATELE T monocytes 5* % notest b. Not Available [facility] [address] [place], [address], 01/25/2025 00:12:05 01/24/2001/25/2025 CBC WITH DIFFE RENTI AL/PL ATELE T eos 3* % notest b. Not Available [facility] [address] [place], [address], 01/25/2025 00:12:05 01/24/2001/25/2025 CBC WITH DIFFE RENTI AL/PL ATELE T basos 1* % notest b. Not Available [facility] [address] [place], [address], 01/25/2025 00:12:05 01/24/2001/25/2025 CBC WITH DIFFE RENTI AL/PL ATELE T neutrophils (absolute) 5.2* x10e3 /uL 1.4-7. 0 Not Available [facility] Department [address] [place], [address], 01/25/2025 00:12:05 01/24/2001/25/2025 CBC WITH DIFFE RENTI AL/PL ATELE T lymphs (absolute) 2.1* x10e3 /uL 0.7-3. 1 Not Available [facility] Department [address] [place], [address], 01/25/2025 00:12:05 01/24/2001/25/2025 CBC WITH DIFFE RENTI AL/PL ATELE T monocytes(ab solute) 0.4* x10e3 /uL 0.1-0. 9 Not Available [facility] Department [address] [place], [address], 01/25/2025 00:12:05 04/15/20 25 01/25/2025 CBC WITH DIFFE RENTI AL/PL ATELE T eos (absolute) 0.3* x10e3 /uL 0.0-0. 4 Not Available [facility] Department [address] [place], [address], 01/25/2025 00:12:05 01/24/2001/25/2025 CBC WITH DIFFE RENTI AL/PL ATELE T baso (absolute) 0.1* x10e3 /uL 0.0-0. 2 Not Available [facility] Department [address] [place], [address], 01/25/2025 00:12:05 01/24/2001/25/2025 CBC WITH DIFFE RENTI AL/PL ATELE T immature granulocytes 0.2* % notest b. Not Available [facility] Department [address] [place] [address], [address], 01/25/2025 00:12:05 01/24/2001/25/2025 CBC WITH DIFFE RENTI AL/PL ATELE T immature grans (abs) 0.0* x10e3 /uL 0.0-0. 1 Not Available [facility] Department [address] [place], [address], 01/25/2025 00:12:05 01/24/2001/25/2025 CBC WITH DIFFE RENTI AL/PL ATELE T NRBC 0* % 0-0 Not Available [facility] Department [address] [place], [address], 01/25/2025 00:12:05 01/24/2001/25/2025 IRON AND TIBC iron bind.cap.(TI BC) 446 ug/dL 250-45 0 Not Available [facility] ([facility]) [address] [facility], [place], [address], 01/25/2025 12:26:26 01/24/20 25 01/25/2025 IRON AND TIBC UIBC 434 ug/dL 131-42 5 above high normal Not Available [facility] ([facility]) [address] [facility], [place], [address], 01/25/2025 12:26:26 01/24/20 25 01/25/2025 IRON AND TIBC iron 12 ug/dL 27-159 below low normal Not Available [facility] ([facility]) [address] [facility], [place], [address], 01/25/2025 12:26:26 01/24/20 25 01/25/2025 IRON AND TIBC iron saturation 3 % 15-55 alert low Not Available [facility] ([facility]) [address] [facility], [place], [address], 01/25/2025 12:26:26 01/24/20 25 01/25/2025 ARNULFO TIN ferritin 5 NG/mL 15-150 below low normal Not Available [facility] ([facility]) [address] [facility], [place], [address], 01/25/2025 12:26:26 01/24/20 25 01/23/2025 HbA1c (hemo globi n A1c), blood HbA1c 9.0 Not Available In-Office Order Internal Use Only DO Not Attach Compendium DO Not Attach Compendium, Do Not Delete/merge, [id number] 01/23/2025 16:16:43 03/12/20 25 03/12/2025 CBC WITH DIFFE RENTI AL/PL ATELE T WBC 7.4 x10e3 /uL 3.4-10 .8 Not Available [facility] Department [address] [place], [address], 03/13/2025 00:08:08 03/12/20 25 03/12/2025 CBC WITH DIFFE RENTI AL/PL ATELE T RBC 4.20 x10e6 /uL 3.77-5 .28 Not Available [facility] Department [address] [place], [address], 03/13/2025 00:08:08 03/12/2003/12/2025 CBC WITH DIFFE RENTI AL/PL ATELE T hemoglobin 9.0 g/dL 11.1-1 5.9 below low normal Not Available [facility] Department [address] [place], [address], 03/13/2025 00:08:08 03/12/2003/12/2025 CBC WITH DIFFE RENTI AL/PL ATELE T hematocrit 30.1 % 34.0-4 6.6 below low normal Not Available [facility] Department [address] [place], [address], 03/13/2025 00:08:08 03/12/2003/12/2025 CBC WITH DIFFE RENTI AL/PL ATELE T MCV 72 fL 79-97 below low normal Not Available [facility] Department [address] [place], [address], 03/13/2025 00:08:08 03/12/2003/12/2025 CBC WITH DIFFE RENTI AL/PL ATELE T MCH 21.4 pg 26.6-3 3.0 below low normal Not Available [facility] Department [address] [place], [address], 03/13/2025 00:08:08 03/12/2003/12/2025 CBC WITH DIFFE RENTI AL/PL ATELE T MCHC 29.9 g/dL 31.5-3 5.7 below low normal Not Available [facility] Department [address] [place], [address], 03/13/2025 00:08:08 03/12/2003/12/2025 CBC WITH DIFFE RENTI AL/PL ATELE T RDW 26.1 % 11.5-1 4.5 above high normal Not Available [facility] Department [address] [place], [address], 03/13/2025 00:08:08 03/12/2003/12/2025 CBC WITH DIFFE RENTI AL/PL ATELE T platelets 343 x10e3 /uL 150-45 0 Not Available [facility] Department [address] [place], [address], 03/13/2025 00:08:08 03/12/20 25 03/12/2025 CBC WITH DIFFE RENTI AL/PL ATELE T neutrophils 61 % notest b. Not Available [facility] Department [address] [place], [address], 03/13/2025 00:08:08 03/12/20 25 03/12/2025 CBC WITH DIFFE RENTI AL/PL ATELE T lymphs 27 % notest b. Not Available [facility] Department [address] [place], [address], 03/13/2025 00:08:08 03/12/2003/12/2025 CBC WITH DIFFE RENTI AL/PL ATELE T monocytes 8 % notest b. Not Available [facility] Department [address] [place], [address], 03/13/2025 00:08:08 03/12/2003/12/2025 CBC WITH DIFFE RENTI AL/PL ATELE T eos 3 % notest b. Not Available [facility] Department [address] [place], [address], 03/13/2025 00:08:08 03/12/2003/12/2025 CBC WITH DIFFE RENTI AL/PL ATELE T basos 1 % notest b. Not Available [facility] Department [address] [place], [address], 03/13/2025 00:08:08 03/12/2003/12/2025 CBC WITH DIFFE RENTI AL/PL ATELE T neutrophils (absolute) 4.5 x10e3 /uL 1.4-7. 0 Not Available [facility] Department [address] [place], [address], 03/13/2025 00:08:08 03/12/20 25 03/12/2025 CBC WITH DIFFE RENTI AL/PL ATELE T lymphs (absolute) 2.0 x10e3 /uL 0.7-3. 1 Not Available [facility] Department [address] [place], [address], 03/13/2025 00:08:08 03/12/2003/12/2025 CBC WITH DIFFE RENTI AL/PL ATELE T monocytes(ab solute) 0.6 x10e3 /uL 0.1-0. 9 Not Available [facility] Department [address] [place], [address], 03/13/2025 00:08:08 03/12/2003/12/2025 CBC WITH DIFFE RENTI AL/PL ATELE T eos (absolute) 0.3 x10e3 /uL 0.0-0. 4 Not Available [facility] Department [address] [place], [address], 03/13/2025 00:08:08 03/12/2003/12/2025 CBC WITH DIFFE RENTI AL/PL ATELE T baso (absolute) 0.1 x10e3 /uL 0.0-0. 2 Not Available [facility] Department [address] [place], [address], 03/13/2025 00:08:08 03/12/2003/12/2025 CBC WITH DIFFE RENTI AL/PL ATELE T immature granulocytes 0.1 % notest b. Not Available [facility] Department [address] [place], [address], 03/13/2025 00:08:08 03/12/2003/12/2025 CBC WITH DIFFE RENTI AL/PL ATELE T immature grans (abs) 0.0 x10e3 /uL 0.0-0. 1 Not Available [facility] Department [address] [place], [address], 03/13/2025 00:08:08 03/12/20 25 03/12/2025 CBC WITH DIFFE RENTI AL/PL ATELE T NRBC 0 % 0-0 Not Available [facility] [address], [place], [address], 03/13/2025 00:08:08 03/12/20 25 03/15/2025 IRON AND TIBC iron bind.cap.(TI BC) 403 ug/dL 250-45 0 Not Available [facility] ([facility]) [address] [place], [address], 03/15/2025 03:36:30 03/12/20 25 03/15/2025 IRON AND TIBC UIBC 386 ug/dL 131-42 5 Not Available [facility] ([facility]) [address] [place], [address], 03/15/2025 03:36:30 03/12/20 25 03/15/2025 IRON AND TIBC iron 17 ug/dL 27-159 below low normal Not Available [facility] ([facility]) [address] [place], [address], 03/15/2025 03:36:30 03/12/20 25 03/15/2025 IRON AND TIBC iron saturation 4 % 15-55 alert low Not Available [facility] ([facility]) [address] [place], [address], 03/15/2025 03:36:30 03/12/20 25 03/15/2025 ARNULFO TIN ferritin 7 NG/mL 15-150 below low normal Not Available [facility] ([facility]) [address] [place], [address], 03/15/2025 03:36:31 08/13/20 25 08/14/2025 LIPID PANEL cholesterol, total 246 mg/dL 100-19 9 above high normal Not Available [facility] ([facility]) [address] [facility] [place], [address], 08/14/2025 12:22:44 08/13/20 25 08/14/2025 LIPID PANEL triglyceride s 153 mg/dL 0-149 above high normal Not Available [facility] ([facility]) [address] [facility] [place], [address], 08/14/2025 12:22:44 08/13/20 25 08/14/2025 LIPID PANEL HDL cholesterol 40 mg/dL >39 Not Available [facility] ([facility]) [address] [facility] [place], [address], 08/14/2025 12:22:44 08/13/20 25 08/14/2025 LIPID PANEL VLDL cholesterol jamari 28 mg/dL 5-40 Not Available [facility] ([facility]) [address] [place], [address], 08/14/2025 12:22:44 08/13/20 25 08/14/2025 LIPID PANEL LDL chol calc ([facility]) 178 mg/dL 0-99 above high normal Not Available [facility] ([facility]) [address] [place], [address], 08/14/2025 12:22:44 08/13/20 25 08/14/2025 COMP. METAB OLIC PANEL (14) glucose - mg/dL Test not perfo rmed. Serum was in conta ct with cells when recei mathew which will make the resul t inacc urate . Not Available [facility] ([facility]) [address] [place], [address], 08/14/2025 12:22:45 08/13/20 25 08/14/2025 COMP. METAB OLIC PANEL (14) BUN 16 mg/dL 6-24 Not Available [facility] ([facility]) [address] [place], [address], 08/14/2025 12:22:45 08/13/20 25 08/14/2025 COMP. METAB OLIC PANEL (14) creatinine 0.82 mg/dL 0.57-1 .00 Not Available [facility] ([facility]) [address] [facility], [place], [address], 08/14/2025 12:22:45 08/13/20 25 08/14/2025 COMP. METAB OLIC PANEL (14) eGFR 89 mL/mi n/1.7 3 >59 Not Available [facility] ([facility]) [address] [facility], [place], [address], 08/14/2025 12:22:45 08/13/20 25 08/14/2025 COMP. METAB OLIC PANEL (14) BUN/creatini ne ratio 20 - Not Available [facility] ([facility]) [address] [facility], [place], [address], 08/14/2025 12:22:45 08/13/20 25 08/14/2025 COMP. METAB OLIC PANEL (14) sodium 137 mmol/ L 134-14 4 Not Available [facility] ([facility]) [address] [facility] [place], [address], 08/14/2025 12:22:45 08/13/20 25 08/14/2025 COMP. METAB OLIC PANEL (14) potassium - mmol/ L Test not perfo rmed. Serum was in conta ct with cells when recei mathew which will make the resul t inacc urate . Not Available [facility] ([facility]) [address] [facility], [place], [address], 08/14/2025 12:22:45 08/13/20 25 08/14/2025 COMP. METAB OLIC PANEL (14) chloride 101 mmol/ L 96-106 Not Available [facility] ([facility]) [address] [facility], [place], [address], 08/14/2025 12:22:45 08/13/20 25 08/14/2025 COMP. METAB OLIC PANEL (14) carbon dioxide, total 17 mmol/ L 20-29 below low normal Not Available [facility] ([facility]) [address] [facility], [place], [address], 08/14/2025 12:22:45 08/13/20 25 08/14/2025 COMP. METAB OLIC PANEL (14) calcium 9.0 mg/dL 8.7-10 .2 Not Available [facility] ([facility]) [address] [facility], [place], [address], 08/14/2025 12:22:45 08/13/20 25 08/14/2025 COMP. METAB OLIC PANEL (14) protein, total 6.8 g/dL 6.0-8. 5 Not Available [facility] ([facility]) [address] [facility], [place], [address], 08/14/2025 12:22:45 08/13/20 25 08/14/2025 COMP. METAB OLIC PANEL (14) albumin 4.2 g/dL 3.9-4. 9 Not Available [facility] ([facility]) [address] [facility], [place], [address], 08/14/2025 12:22:45 08/13/20 25 08/14/2025 COMP. METAB OLIC PANEL (14) globulin, total 2.6 g/dL 1.5-4. 5 Not Available [facility] ([facility]) [address] [facility], [place], [address], 08/14/2025 12:22:45 08/13/20 25 08/14/2025 COMP. METAB OLIC PANEL (14) bilirubin, total <0.2 mg/dL 0.0-1. 2 Not Available [facility] ([facility]) [address] [facility], [place], [address], 08/14/2025 12:22:45 11/03/08/14/2025 COMP. METAB OLIC PANEL (14) alkaline phosphatase 215 IU/L 41-116 above high normal Not Available [facility] ([facility]) [address] [facility], [place], [address], 08/14/2025 12:22:45 08/13/20 25 08/14/2025 COMP. METAB OLIC PANEL (14) AST (SGOT) 28 IU/L 0-40 Not Available [facility] ([facility]) [address] [facility], [place], [address], 08/14/2025 12:22:45 08/13/2008/14/2025 COMP. METAB OLIC PANEL (14) ALT (SGPT) 21 IU/L 0-32 Not Available [facility] ([facility]) [address] [facility], [place], [address], 08/14/2025 12:22:45 08/13/20 25 08/14/2025 CBC WITH DIFFE RENTI AL/PL ATELE T WBC 6.5 x10e3 /uL 3.4-10 .8 Not Available [facility] ([facility]) [address] [place], [address], 08/14/2025 12:22:46 08/13/20 25 08/14/2025 CBC WITH DIFFE RENTI AL/PL ATELE T RBC 4.64 x10e6 /uL 3.77-5 .28 Ellip tocyt es prese nt. Not Available [facility] ([facility]) [address] [place], [address], 08/14/2025 12:22:46 08/13/20 25 08/14/2025 CBC WITH DIFFE RENTI AL/PL ATELE T hemoglobin 10.2 g/dL 11.1-1 5.9 below low normal Not Available [facility] ([facility]) [address] [place], [address], 08/14/2025 12:22:46 08/13/20 25 08/14/2025 CBC WITH DIFFE RENTI AL/PL ATELE T hematocrit 35.3 % 34.0-4 6.6 Not Available [facility] ([facility]) [address] [facility], [place], [address], 08/14/2025 12:22:46 08/13/20 25 08/14/2025 CBC WITH DIFFE RENTI AL/PL ATELE T MCV 76 fL 79-97 below low normal Not Available [facility] ([facility]) [address] [facility], [place], [address], 08/14/2025 12:22:46 08/13/20 25 08/14/2025 CBC WITH DIFFE RENTI AL/PL ATELE T MCH 22.0 pg 26.6-3 3.0 below low normal Not Available [facility] ([facility]) [address] [place], [address], 08/14/2025 12:22:46 08/13/20 25 08/14/2025 CBC WITH DIFFE RENTI AL/PL ATELE T MCHC 28.9 g/dL 31.5-3 5.7 below low normal Not Available [facility] ([facility]) [address] [place], [address], 08/14/2025 12:22:46 08/13/20 25 08/14/2025 CBC WITH DIFFE RENTI AL/PL ATELE T RDW 23.0 % 11.7-1 5.4 above high normal Not Available [facility] ([facility]) [address] [place], [address], 08/14/2025 12:22:46 08/13/20 25 08/14/2025 CBC WITH DIFFE RENTI AL/PL ATELE T platelets 307 x10e3 /uL 150-45 0 Not Available [facility] ([facility]) [address] [place], [address], 08/14/2025 12:22:46 08/13/20 25 08/14/2025 CBC WITH DIFFE RENTI AL/PL ATELE T neutrophils 64 % notest ab. Not Available [facility] ([facility]) [address] [facility], [place], [address], 08/14/2025 12:22:46 08/13/20 25 08/14/2025 CBC WITH DIFFE RENTI AL/PL ATELE T lymphs 24 % notest ab. Not Available [facility] ([facility]) [address] [facility], [place], [address], 08/14/2025 12:22:46 08/13/20 25 08/14/2025 CBC WITH DIFFE RENTI AL/PL ATELE T monocytes 7 % notest ab. Not Available [facility] ([facility]) [address] [facility], [place], [address], 08/14/2025 12:22:46 08/13/20 25 08/14/2025 CBC WITH DIFFE RENTI AL/PL ATELE T eos 4 % notest ab. Not Available [facility] ([facility]) [address] [facility], [place], [address], 08/14/2025 12:22:46 08/13/20 25 08/14/2025 CBC WITH DIFFE RENTI AL/PL ATELE T basos 1 % notest ab. Not Available [facility] ([facility]) [address] [facility], [place], [address], 08/14/2025 12:22:46 08/13/20 25 08/14/2025 CBC WITH DIFFE RENTI AL/PL ATELE T neutrophils (absolute) 4.2 x10e3 /uL 1.4-7. 0 Not Available [facility] ([facility]) [address] [facility], [place], [address], 08/14/2025 12:22:46 08/13/20 25 08/14/2025 CBC WITH DIFFE RENTI AL/PL ATELE T lymphs (absolute) 1.5 x10e3 /uL 0.7-3. 1 Not Available [facility] ([facility]) [address] [facility], [place], [address], 08/14/2025 12:22:46 08/13/20 25 08/14/2025 CBC WITH DIFFE RENTI AL/PL ATELE T monocytes(ab solute) 0.4 x10e3 /uL 0.1-0. 9 Not Available [facility] ([facility]) [address] [facility], [place], [address], 08/14/2025 12:22:46 08/13/20 25 08/14/2025 CBC WITH DIFFE RENTI AL/PL ATELE T eos (absolute) 0.3 x10e3 /uL 0.0-0. 4 Not Available [facility] ([facility]) [address] [place], [address], 08/14/2025 12:22:46 08/13/20 25 08/14/2025 CBC WITH DIFFE RENTI AL/PL ATELE T baso (absolute) 0.1 x10e3 /uL 0.0-0. 2 Not Available [facility] ([facility]) [address] [facility], [place], [address], 08/14/2025 12:22:46 08/13/20 25 08/14/2025 CBC WITH DIFFE RENTI AL/PL ATELE T immature granulocytes 0 % notest ab. Not Available [facility] ([facility]) [address] [place], [address], 08/14/2025 12:22:46 08/13/20 25 08/14/2025 CBC WITH DIFFE RENTI AL/PL ATELE T immature grans (abs) 0.0 x10e3 /uL 0.0-0. 1 Not Available [facility] ([facility]) [address] [place], [address], 08/14/2025 12:22:46 08/13/20 25 08/14/2025 CBC WITH DIFFE RENTI AL/PL ATELE T hematology comments: NOTE: CBC met refle x crite padmini for revie w of perip heral smear by medic al labor atory profe ssion al. Autom ated resul ts were confi rmed by smear revie w. Not Available [facility] ([facility]) [address] [facility], [place], [address], 08/14/2025 12:22:46 08/13/20 25 08/14/2025 ALBUM IN/CR EAT RATIO , RANDO M UR creatinine, urine 485.5 mg/dL notest ab. Not Available [facility] ([facility]) [address] [place], [address], 08/14/2025 13:14:48 08/13/20 25 08/14/2025 ALBUM IN/CR EAT RATIO , RANDO M UR albumin, urine 80.3 ug/mL notest ab. Not Available [facility] ([facility]) [address] [facility], [place], [address], 08/14/2025 13:14:48 08/13/20 25 08/14/2025 ALBUM IN/CR EAT RATIO , RANDO M UR alb/creat ratio 17 mg/g_ creat 0-29 Lucille l: 0 - 29 Moder ately incre ased: 30 - 300 Sever dinah incre ased: >300 Not Available [facility] ([facility]) [address] [place], [address], 08/14/2025 13:14:48 08/13/20 25 08/14/2025 TSH+F REE T4 TSH 1.630 uIU/m L 0.450- 4.500 Not Available [facility] ([facility]) [address] [facility], [place], [address], 08/14/2025 13:14:49 08/13/20 25 08/14/2025 TSH+F REE T4 T4,free(dire ct) 1.50 NG/dL 0.82-1 .77 Not Available [facility] ([facility]) [address] [place], [address], 08/14/2025 13:14:49 08/13/20 25 08/14/2025 IRON AND TIBC iron bind.cap.(TI BC) 389 ug/dL 250-45 0 Not Available [facility] ([facility]) [address] [place], [address], 08/14/2025 13:14:49 08/13/20 25 08/14/2025 IRON AND TIBC UIBC 366 ug/dL 131-42 5 Not Available [facility] ([facility]) [address] [place], [address], 08/14/2025 13:14:49 08/13/20 25 08/14/2025 IRON AND TIBC iron 23 ug/dL 27-159 below low normal Not Available [facility] ([facility]) [address] [place], [address], 08/14/2025 13:14:49 08/13/20 25 08/14/2025 IRON AND TIBC iron saturation 6 % 15-55 alert low Not Available [facility] ([facility]) [address] [place], [address], 08/14/2025 13:14:49 08/13/20 25 08/14/2025 ARNULFO TIN ferritin 25 NG/mL 15-150 Not Available [facility] ([facility]) [address] [place], [address], 08/14/2025 13:14:49 08/13/20 25 08/14/2025 VITAM IN D, 25-HY DROXY vitamin D, 25-hydroxy 28.6 NG/mL 30.0-1 00.0 below low normal Vitam in D defic iency has been defin ed by the Insti tute of Medic ine and an Endoc rine Socie ty pract ice guide line as a level of serum 25-OH vitam in D less than 20 ng/mL (1,2) . The Endoc rine Socie ty went on to furth er defin e vitam in D insuf ficie ncy as a level betwe en 21 and 29 ng/mL (2). 1. IOM (Inst itute of Medic ine). 2009. Dieta ry refer ence intak es for calci um and D. Kendal saha [place]: The [facility] Press . 2. Patricia k [place], Binkl ey [place], Bisch off-F errar i DELAROSA, et al. Evalu ation , treat ment, and preve ntion of vitam in D defic iency : an Endoc rine Socie ty clini jamari pract ice guide line. JCEM. 2010; 96(7) :1911 -30. Not Available [facility] ([facility]) [address] [facility], [place], [address], 08/14/2025 13:14:50 03/22/20 24 03/22/2024 CT, abdom en + pelvi s, w/ contr ast No observ ation record ed. [address] [facility], [place], [address], 03/23/2024 12:32:26 01/26/20 25 01/25/2025 US, pelvi s, compl ete No observ ation record ed. [address] [facility], [place], [address], 03/15/2025 09:50:08 Result Notes None recorded. Problems Name Problem SNOMED Code Status Onset Date Resolution Date Notes Provider Name and Address Organization Details Recorded Time Mammogra phy abnormal 519649145 Completed 09/22/2018 JESSICA Castillo NP Attn: Accounting ,[address], [place], [address] , [place] - [facility] 8 14:21:56 Acute sinusiti s [id number] Completed 09/20/2018 JESSICA Castillo NP Attn: Accounting ,[address], [place], [address] , [place] - [facility] 8 11:33:52 Uncontro lled type 1 diabetes mellitus [id number] Completed 09/20/2018 JESSICA Castillo NP Attn: Accounting ,[address], [place], [address] , [place] - [facility] 8 11:39:44 Allergic rhinitis [id number] Completed 09/22/2018 JESSICA Castillo NP Attn: Accounting ,[address], [place], [address] , [place] - [facility] 8 14:22:00 Missed period [id number] Completed 09/20/2018 JESSICA Castillo NP Attn: Accounting ,[address], [place], [address] , [place] - [facility] 8 11:34:08 Milk of calcium calcific ation [id number] Completed 09/20/2018 JESSICA Castillo NP Attn: Accounting ,[address], [place], [address] , [place] - [facility] 8 11:34:02 Milk of calcium calcific ation [id number] Completed Darshana Gustafson PA-C Attn: Accounting ,[address], [place], [address] , [place] - [facility] 6 10:02:22 Disorder of thyroid gland [id number] Completed Darshana Gustafson PA-C Attn: Accounting ,[address], [place], [address] , [place] - [facility] 6 10:02:22 Hyperlip idemia [id number] Completed Darshana Gustafson PA-C Attn: Accounting ,[address], [place], [address] , [place] - [facility] 6 10:02:22 Thyroid nodule 462750274 Completed Darshana Gustafson PA-C Attn: Accounting ,[address], [place], [place], [address] [place] [address] , [facility] - [facility] 6 10:02:22 Uncontro lled type 1 diabetes mellitus [id number] Completed Darshana Gustafson PA-C Attn: Accounting ,[address], [place], [place], [address] [place] [address] , [facility] - [facility] 6 10:02:23 Candidia sis [id number] Completed 09/22/2018 JESSICA Castillo NP Attn: Accounting ,[address], [place], [place], [address] [place] [address] , [facility] 8 14:22:06 Candidia sis [id number] Completed Darshana Gustafson PA-C Attn: Accounting ,[address] [facility], [place], [address] [place] [address] , [facility] 6 10:02:23 Constipa tion [id number] Completed 09/22/2018 JESSICA Castillo NP Attn: Accounting ,[address] [facility], [place], [address] [place] [address] , [facility] 8 14:21:54 Constipa tion [id number] Completed Darshana Gustafson PA-C Attn: Accounting ,[address] [facility], [place], [address] [place] [address] , [facility] 6 10:02:22 Diabetes mellitus [id number] Active Darshana Gustafson PA-C Attn: Accounting ,[address] [facility], [place], [address] [place] [address] , [facility] 6 14:31:38 Diabetes mellitus [id number] Completed Darshana Gustafson PA-C Attn: Accounting ,[address] [facility], [place], [address] [place] [address] , [facility] 6 10:02:22 Hypothyr oidism [id number] Active Darshana Gustafson PA-C Attn: Accounting ,[address] [facility], [place], [place], [address] [place] [address] , [facility] - [facility] 6 10:02:22 Hypothyr oidism 66462168 Completed Darshana Gustafson PA-C Attn: Accounting ,[address], [place], [address] , [place] [facility] 6 10:02:22 Vitamin D deficien cy 80084781 Active Darshana Gustafson PA-C Attn: Accounting ,[address], [place], [place], [address] [place] [address] , [place] [facility] 6 10:02:23 Vitamin D deficien cy 79831107 Completed Darshana Gustafson PA-C Attn: Accounting ,[address], [place], [place], [address] [place] [address] , [place] - [facility] 6 10:02:23 Hypereme sis 598804612 Completed 09/22/2018 JESSICA Castillo NP Attn: Accounting ,[address], [place], [address] [place] [address] , [place] [facility] 8 14:22:03 Hypereme sis 880186115 Completed Darshana Gustafson PA-C Attn: Accounting ,[address], [place], [address] [place] [address] , [place] [facility] 6 10:02:22 Type 1 diabetes mellitus 04243370 Completed 09/20/2018 JESSICA Castillo NP Attn: Accounting ,[address], [place], [address] [place] [address] , [place] [facility] 8 11:39:47 Type 1 diabetes mellitus 61835018 Completed Darshana Gustafson PA-C Attn: Accounting ,[address], [place], [address] , [place] [facility] 6 10:02:22 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 Darshana Gustafson PA-C Attn: Accounting ,[address], [place], [address] , [place] [facility] 6 15:40:51 Papillar y thyroid carcinom a 984189955 Completed Darshana Gustafson PA-C Attn: Accounting ,[address], [place], [address] , [place] [facility] 6 10:02:23 Menorrha ayesha 243791282 Completed 09/22/2018 SYED RICE Attn: Accounting ,[address], [place], [address] , [place] [facility] 4 16:23:21 Menorrha ayesha 859139987 Completed Darshana Gustafson PA-C Attn: Accounting ,[address], [place], [address] , [place] [facility] 6 10:02:23 Disorder of thyroid gland 75656978 Completed 09/22/2018 JESSICA Castillo NP Attn: Accounting ,[address], [place], [address] , [place] [facility] 8 14:22:14 Hyperlip idemia 30614137 Active Darshana Gustafson PA-C Attn: Accounting ,[address], [place], [address] , [place] [facility] 6 10:02:22 Iron deficien cy anemia 63741576 Completed 09/22/2018 resolved Rachael Rios NP Attn: Accounting ,[address], [place], [address] , [place] [facility] 5 16:10:49 Thyroid nodule 736195512 Active Darshana Gustafson PA-C Attn: Accounting ,[address], [place], [address] , [place] [facility] 6 10:02:22 Mass of left breast 64122637878 457174 Completed 201709/22/2018 JESSICA Castillo NP Attn: Accounting ,[address], [place], [address] , [place] [facility] 8 14:22:16 Pain of left ankle joint 95239908019 048089 Active 2023 SYED RICE Attn: Accounting ,[address], [place], [address] , [place] [facility] 4 08:35:45 Colonosc opy Active 2023 needs repeat in 2028 SYED RICE Attn: Accounting ,[address], [place], [address] , [facility] 4 15:36:32 Insulin treated type 2 diabetes mellitus 228396032 Active 2023 SYED RICE Attn: Accounting ,[address], [place], [address] , [facility] - [facility] 4 12:05:24 Iron deficien cy anemia 01797439 Active 2023 Managed by OBGYN/Dr Narinder Nieves. Pt mentione d received iron infusion 08/2025 Rachael Rios NP Attn: Accounting ,[address], [place], [address] , [facility] - [facility] 5 16:10:49 Menorrha ayesha 678141905 Active 2023 SYED RICE Attn: Accounting ,[address], [place], [address] , [facility] 4 16:23:21 Problem Notes None recorded. Procedures Surgical History Date Name Laterality Status Provider Name and Address Organization Details Recorded Time 4 Injection completed LEONARDO KAUFMAN DPM [address] [place], [address], [place] [facility] 04/07/2024 17:38:06 4 Date of Last Mammogram completed [place]ael Can [place] [facility] 12/27/2023 15:24:16 2 Date of Last Pap Smear completed Rachael [place] [facility] 12/27/2023 15:23:55 8 Caesarean Section completed Sheron Robbins [place] [facility] 06/05/2015 11:08:33 6 Caesarean Section completed Sheron Robbins [place] 06/05/2015 11:08:33 4 Caesarean Section completed Sheron Robbins [place] 06/05/2015 11:08:33 Tubal Ligation completed Theresa Candelaria MD Attn: Accounting,[address] [place], [address], [facility] - [facility] 07/19/2018 16:03:43 Imaging Results None recorded. Procedure Notes None recorded. Medical Equipment None Reported. Allergies Allergen ID Allergen Name Allergen Category Reaction Reaction Severity Criticality Documentation Date Start Date Code Code System Note Provider Name and Address Organization Details Recorded Time 15381013 peanut allergeni c extract food,medi cation Not available Not available Not available 11/27/2022 85946 8 RxNorm SYED RICE Attn: Accountin g,[address] [place], [address], [facility] 3 09:50:25 Medications Name Sig Start Date Stop Date [...] glasses of water after finishing this mixture 08/12 completed Not Available Not Available Not Available atorvastati n 40 mg tablet Take 1 tablet every day by oral route for 30 days. 2024 active Not Available Not Available Not Avai lable Augmentin 875 mg-125 mg tablet Take 1 tablet twice a day by oral route for 7 days. 2014 active Not Available Not Available Not Avai lable levothyroxi ne 137 mcg tablet TAKE 1 TABLET by mouth DAILY IN THE MORNING BEFORE BREAKFAST FOR THYROID. active Not Available Not Available No t [...] injection Take 0.25 mL by injection route. 08/13 completed Not Available Not Available Not Available Vitamin tablet Take 1 tablet every day [...] unit) capsule TAKE ONE CAPSULE BY MOUTH EVERY WEEK FOR VITAMIN DEFICIENC Y 2024 active Not Available Not Available Not Avai lable ibuprofen 600 mg tablet active Not Available Not Available Not Available lovastatin 20 mg tablet Take 1 tablet every day by oral route in the evening. 2014 active Not Available Not Available Not Avai lable albuterol sulfate HFA 90 mcg/actuati on aerosol inhaler INHALE TWO PUFFS BY MOUTH FOUR TIMES DAILY NEEDED active Not Available Not Available No t Available insulin syringe U-100 with needle 0.5 mL 31 gauge x 02/23 active Not Available Not Available Not Available [...] one time with 8 ounces of water 08/12 completed Not Available Not Available Not Available insulin aspart (U-100) 100 unit/mL (3 mL) subcutaneou s pen INJECT THREE UNITS UNDER THE SKIN PER MEAL. PLUS SLIDING SCALE CORRECTIO N. MAX DAILY DOSE 20 UNITS active Not Available Not Available No t Available Levemir U-100 Insulin 100 unit/mL subcutaneou s solution Inject 35 units twice a day by subcutane ous route. 08/13 completed Not Available Not Available Not Available Levemir FlexPen 100 unit/mL (3 mL) solution subcutaneou s insulin pen INJECT 35 UNITS UNDER THE SKIN TWICE DAILY EVERY MORNING AND AT BEDTIME 08/13 completed Not Available Not Available Not Available Januvia 100 mg tablet Take 1 tablet every day by oral route for 30 days. 07/11 completed Not Available Not Available Not Available FeroSul 325 mg (65 mg iron) tablet TAKE ONE TABLET BY MOUTH EVERY DAY 2024 active Not Available Not Available Not Avai lable Lantus Solostar U-100 Insulin 100 unit/mL (3 mL) subcutaneou s pen INJECT 38 UNITS UNDER THE SKIN TWICE DAILY EVERY MORNING AND EVERY EVENING FOR DIABETES 2024 active Not Available Not Available Not Avai lable Humalog KwikPen (U-100) Insulin 100 unit/mL subcutaneou s INJECT FIVE UNITS UNDER THE SKIN 15 MINUTES BEFORE MEALS 2024 active Not Available Not Available Not Avai lable levothyroxi ne 137 mcg capsule Take 1 capsule every day by oral route for 30 days. 08/12 completed Not Available Not Available Not Available tranexamic acid 650 mg tablet TAKE 2 TABLETS BY MOUTH THREE TIMES DAILY (IN THE MORNING, AT MID-DAY AND AT BEDTIME) NEEDED 08/13 completed Not Available Not Available Not Available [...] Available Not Available Jardiance 25 mg tablet TAKE ONE TABLET BY MOUTH IN THE MORNING FOR DIABETES active Not Available Not Available No t Available TRUEplus Pen Needle 31 gauge x 1/4 USE DIRECTED TWO TIMES A DAY active Not Available Not Available No t Available TRUEplus Pen Needle 31 gauge x 3/16 USE [...] in Arterial blood by Pulse oximetry Systolic And Diastolic Provider Name and Address Organization Details Last Updated DateTime 5 155.58 cm 28.5 kg/m2 00373.0 4 g 103 /min 99 % 99 % 136/82 mm[Hg] Rachael Can MA [facility] 5 16:12:27 Date Recorded Body height Body mass index (BMI) Body weight Heart rate Oxygen saturation Oxygen saturation in Arterial blood by Pulse oximetry Systolic And Diastolic Provider Name and Address Organization Details Last Updated DateTime 5 155.58 cm 27.9 kg/m2 24796.2 6 g 103 /min 99 % 99 % 107/63 mm[Hg] Rachael Can MA [facility] 5 15:53:07 Date Recorded Body height Body mass index (BMI) Body weight Heart rate Body temperature Systolic And Diastolic Provider Name and Address Organization Details Last Updated DateTime 4 155.58 cm 27.7 kg/m2 80044.6 7 g 102 /min 97.8 [degF] 132/52 mm[Hg] Vanessa Grant LPN [facility] 4 15:58:03 Date Recorded Body height Body mass index (BMI) Body weight Heart rate Oxygen saturation Oxygen saturation in Arterial blood by Pulse oximetry Systolic And Diastolic Provider Name and Address Organization Details Last Updated DateTime 4 155.58 cm 27.9 kg/m2 46333.2 6 g 97 /min 99 % 99 % 98/66 mm[Hg] Rachael Can MA [facility] 4 15:55:49 Date Recorded Body height Body mass index (BMI) Body weight Heart rate Oxygen saturation Oxygen saturation in Arterial blood by Pulse oximetry Systolic And Diastolic Provider Name and Address Organization Details Last Updated DateTime 5 155.58 cm 29.2 kg/m2 10557.4 1 g 93 /min 99 % 99 % 121/69 mm[Hg] Rachael Can MA [facility] 5 08:52:32 Social History Question Answer Notes LastModified by Organizat ion Details LastModified Time Tobacco Smoking Status Current Some Day Smoker Rachael Can [place] null, [facility] 03/18/2021 15:26:36 Do You Have An Advance Directive? No Information not available 04/04/2015 If You Are , What Was Your [...] For COVID-19? No Information not available 03/18/2021 What Type Of Diet Are You Following? REGULAR Information not available 11/15/2014 Which Illicit Or Recreational Drugs Have You Used? No Information not available 11/15/2014 Education 10 Information no t available 11/15/2014 Have There Been Any Changes To Your [...] Information not available 11/15/2014 Do You Use Sunscreen Routinely? Yes Information not available 11/15/2014 Supplements Vitamins [email or web address] Information not available 04/26/2015 Has Tobacco Cessation Counseling Been Provided? Yes Information not available 05/15/2024 On What Date Was Tobacco Cessation Counseling Provided? 01/23/2025 Information not available 01/23/2025 How Many Years Have You Smoked Tobacco? 0 Information not available 04/04/2015 Sex: Female Functional Status Question Answer Note LastModified by Organizat ion Details LastModified Time Do you use any illicit or recreational drugs? No Information not available 03/18/2021 Do you or have you ever used any other forms of tobacco or nicotine? No [email or web address] Information not available 03/20/2021 What is your level of alcohol consumption? None Information not available 09/27/2014 Are you currently employed? No Information not available 11/15/2014 Are you able to care for yourself independently? Yes Information not available 11/15/2014 What is your occupation? none Information not available 04/04/2015 What is your exercise level? Occasional Information not available 11/15/2014 Mental Status None recorded. Family History Nothing Reported. Medical History Condition Response Coronary Artery Disease N Other N High Blood Pressure N Atrial Fibrillation N Breast Cancer N Depression N COPD N Blood Clots N Lung Disease N Breast Problem N Anesthesia Complications N Anxiety Disorder N Muscle, Joint, or Bone Problems N Arthritis N Infertility N Polyps N Acid Reflux (GERD) N Cancer N Stroke N ADHD N Endometriosis N High Cholesterol Y Liver Disease N Headaches N Fibromyalgia N Kidney Disease N Heart Problems N Kidney or Bladder Problems N Thyroid Problems Y GI Problems N Acne N Eating Disorder N Skin Problems N Anemia N Heart Attack ([place]) N Ovarian Cancer N Diabetes Y Blood Transfusions N Seizures/Epilepsy N Abuse/Domestic Violence N Asthma N Allergies N Hepatitis N Heart Disease N Pre-Eclampsia N Hypertension N Osteoporosis N Heart Failure N Gynecological History Statement/Question Response Abnormal Pap [...] [facility] 06/27/2024 13:06:45 Influenza, split virus, quadrivalent, PF 5 completed Not Available [facility] 08/13/2025 08:46:18 Tdap 5 completed Not Available [facility] 08/13/2025 08:46:18 Influenza, split virus, trivalent, PF 8 completed Not Available [facility] 08/13/2025 08:46:18 Influenza, split virus, quadrivalent, preservative 8 completed Not Available [facility] 10/28/2019 02:36:25 Influenza, split virus, quadrivalent, preservative 0 completed Nataliya Chávez [place], [place] [facility] 08/02/2020 10:51:40 Influenza, split virus, quadrivalent, PF 2 completed Rachael [place] [facility] 11/07/2021 10:48:35 Pneumococcal conjugate PCV20, polysaccharide OAA094 conjugate, adjuvant, PF 3 completed SYED RICE Attn: Accounting[address] [place], [address], [place] [facility] 11/28/2022 19:22:54 Influenza, split virus, quadrivalent, PF 3 completed Rani Palma CMA [place], [place] [facility] 08/16/2023 11:32:37 Influenza, split virus, quadrivalent, PF 4 completed SYED RICE Attn: Accounting,[address], [place], [address], [place] [facility] 11/23/2023 08:34:29 Influenza, split virus, trivalent, PF 5 completed Any Aguiar [place], [place] [facility] 08/13/2025 09:59:56 Past Encounters Encounter ID Performer Location Encounter Start Date Encounter Closed Date Diagnosis/Indication Diagnosis SNOMED-CT Code Diagnosis ICD10 Code Diagnosis IMO Codes Diagnosis Note [id number] ALFREDO Jenkins [address] [place] [address] 09/27/2014 11:00:45 09/28/2014 13:30:08 Disorder of thyroid gland 74949813 Thyroid nodule 628301762 N eeds referral for biopsy. Our office will verify if Dr. Ortiz at [facility] is able to perform. If not we will refer to Shun/Kelly Talley. At this point patient does not have ITIN or SSN, but Shaista is available to media center assistant patient as necessary. [id number] ALFREDO Jenkins [address] [place] [address] 11/15/2014 11:55:56 11/15/2014 13:23:16 Uncontrolled type 2 diabetes mellitus 160103687 Thyroid nodule 414483670 Mammography abnormal 886912937 Needs f/u February 2015 Hyperlipidemia 26800462 Acute sinusitis 66282257 [id number] ALFREDO Jenkins makenna [address] [facility] [place] [address] 12/07/2014 10:14:58 12/07/2014 11:25:09 Hyperlipidemia 57965901 Uncontroll ed type 1 diabetes mellitus 959570507 Type 1.5, adult onset insulin dependent. Had [...] starting insulin. Insulin instructio n given by [employer]ILY [employer] TE[employer]ER with [place] staff lisa ribeiro [id number] Sammy Ybarra MD [facility] [address] [place] [address] 12/31/2014 09:39:43 12/31/2014 10:11:35 Uncontrolled type 1 diabetes mellitus 500599654 Thyroid nodule 205471097 Allergic rhinitis 02377479 [id number] Vinay Carter MD [facility] [address] [place] [address] 02/27/2015 10:59:21 02/27/2015 12:20:54 Uncontrolled type 1 diabetes mellitus 267133909 Hyperlipidemia 26107488 Wi check lipid today and proceed from there Missed period 62989056 Pos itive test will refer to Dr. Yang [id number] MD Christel Lawson (SQL DEVELOPER DBA) [address] [place] [address] 04/04/2015 14:33:37 04/04/2015 16:27:59 Normal 30460437 Advanced m aternal age 286559540 Milk of ca lcium calcification 227324859 Disorder o f thyroid gland 66205017 Hyperlipidemia 96705564 Thyroid nodule 261922267 Uncontroll ed type 1 diabetes mellitus 389569710 [id number] MD Christel Lawson (SQL DEVELOPER DBA) [address] [place] [address] 04/26/2015 09:19:29 04/26/2015 10:22:28 Normal 58158570 [id number] MD Christel Lawson (SQL DEVELOPER DBA) [address] [place] [address] 04/30/2015 09:51:03 04/30/2015 11:20:07 Normal 63952587 Constipation 66054059 Diabetes mellitus 80300743 Advanced m aternal age 370867782 Hypothyroidism 64341268 Vitamin D deficiency 09985427 Hyperemesis 428055881 [id number] MD Christel Butler (SQL DEVELOPER DBA) [address] [place] [address] 06/05/2015 10:06:55 06/05/2015 11:50:47 Second trimester 55982718 Type 1 kia betes mellitus 24159185 Hypothyroidism 01075820 [id number] MD Christel Arana (Adult Med) [address] [place] [address] 11/01/2015 10:51:27 11/01/2015 11:48:27 Uncontrolled type 1 diabetes mellitus 629915398 E10.65 Will check a1c today She did [...] are still high, will initiate insulin Hyperlipidemia 05300898 E78.5 Will check lipid today and proceed from there Hypothyroidism 45079969 E03.9 WIll check levels and prescribe accordingl y [id number] MD Christel Kaufman (Adult Med) [address] [place] [address] 11/15/2015 10:40:56 11/15/2015 12:13:52 Diabetes mellitus 54458859 E11.9 SHe would like to initiate insulin [...] the end of the month Thyroid nodule 582724929 E04.1 Patient had a thyroid nodule that had been advised to be further evaluated one year ago, but then she became . Will try to have thyroid biopsy before she loses her insurance at the end of the month; if this is not possible, patient also completed the [facility] applicatio n in office today that can be used after the end of the month Continue with current levothyrox ine dose [id number] MD Christel Kaufman (Adult Med) [address] [place] [address] 12/06/2015 09:44:46 12/06/2015 11:50:25 Papillary thyroid carcinoma 383571807 C[address] [facility] for general surgery Discussed her biopsy results and that we would be referring to [facility] for further evaluation - patient v/u Diabetes mellitus 093071 09 E11.9 Will increase insulin to 30 units insulin qPM (going up 2 units every evening) and continue with metformin BID - her goal BS is 150 - currently running 180-220 Advised that if sugar is less than 100 when checking to not take metformin RTC 2 months Menorrhagia 895627632 N9 2.0 Will complete [facility] form today [id number] MD Christel Kaufman (Adult Med) [address] [place] [address] 01/28/2016 09:17:52 01/28/2016 11:28:48 Diabetes mellitus 70303720 E11.9 Will increase insulin to 30-35 units insulin qPM (going up 2 units every evening) and continue with metformin BID - her goal BS is 150 - currently running 180-220 Advised that if sugar is less than 100 when checking to not take metformin RTC 4 months Will check a1c today Papillary thyroid carcinoma 263296376 C[address] [facility] for general surgery - printed out US and biopsy results for her to take with her to appointmen t at [facility] - discussed that I believe it is in her best interest to have this taken care of Advised to set up an appointmen t to talk to them in person at an appointmen t versus over the phone [id number] MD Christel Kaufman (Adult Med) [address] [place] [address] 05/18/2016 09:26:18 05/18/2016 15:44:27 Uncontrolled type 1 diabetes mellitus 771566531 E10.65 Levemir 35 units qPM and d/c metformin Will check a1c today Did not take her metformin this morning States that her sugars are dropping greatly at night and she is waking up in the middle of the night and her sugars are down to 60s Papillary thyroid carcinoma 537032566 C[address] [facility] for general surgery - printed out US and biopsy results for her to take with her to appointmen t at [facility] - discussed that I believe it is in her best interest to have this taken care of Patient given referral to [facility] again today Discussed with patient that per [facility] [place] [facility] I cannot refer her there; however, if she would like to contact them to make an appointmen t she can do so Advised that it doesn't matter to me which route she takes - just as long as she has this taken care of [id number] MD Christel Quach (SQL DEVELOPER DBA) [address] [place] [address] 0 11/26/2017 09:05:01 11/26/2017 13:39:58 Mass of left breast 6005060335 0385812 N63.22 IBCCP0.5cm , mobile, firm lump in upper in quadrant of left greast - will order diagnostic mammogram and US if needed [id number] MD Christel Quach (SQL DEVELOPER DBA) [address] [place] [address] 0 01/14/2018 10:34:12 01/14/2018 10:57:01 Mass of left breast 2634412841 6346235 N63.22 IBCCP0.5cm , mobile, firm lump in upper in quadrant of left breast - will order US at this time [id number] MD Christel Tapia (SQL DEVELOPER DBA) [address] [place] [address] 0 07/19/2018 14:41:12 07/19/2018 17:25:39 Gynecologic examination 25047978 Z01.419 Age appropriat e counseling done. Venereal d isease screening 595450530 Z11.3 Z20.2 Administra tion of influenza vaccine 79170595 Z23 Glycosuria 48246941 R81 Advised patient to f/u with PCP. Proteinuria 17039612 R80 .9 Advised patient to f/u with PCP. Mammography abnormal 168 651258 R92.8 D/W PATIENT. Bacterial vaginosis 4197 10921 N76.0 Counseled about it. Candidal vulvovaginitis 95381596 B37.3 Counseled about it. Breast lump 45281846 N63 .0 d/w patient. Reviewed mammogram and breast ultrasound . D/W patient. Breast surgeon referral. [id number] JESSICA Castillo NP [facility] [address] [place] [address] 09/20/2018 11:07:28 09/20/2018 11:53:13 Diabetes mellitus 85260257 E11.9 -HgA1c 11.0 on -Inc rease levemir to 35 units BID-Check BS daily, before breakfast- F/u 1 month Hyperlipidemia 22095243 E78.5 -Recheck lipid panel Thyroid nodule 236326010 E04.1 -Recheck TSH [id number] Alva Jensen MD [facility] [address] [place] [address] 01/13/2019 09:48:48 01/16/2019 10:27:22 Insulin treated type 2 diabetes mellitus 978641120 Z79.4 A1C 11.6 Postoperat berry hypothyroidism 95218841 E89.0 Mixed hyperlipidemia 267 607089 E78.2 Vitamin D deficiency 347 19090 E55.9 [id number] Alva Jensen MD [facility] [address] [place] [address] 04/14/2019 13:53:37 04/24/2019 09:29:28 Hypomagnesemia 877930017 E83.42 Type 2 kia betes mellitus 36887853 E11.65 Hypothyroidism 60946022 E03.9 Insulin tr eated type 2 diabetes mellitus 691117660 Z79.4 A1C 11.6 Mixed hyperlipidemia 267 417370 E78.2 Neuropathy 505742014 G62 .9 [id number] Alva Jensen MD [facility] [address] [place] [address] 08/31/2019 11:48:58 09/04/2019 16:18:36 Type 2 diabetes mellitus 50166298 E11.65 discussed diabetic diet and exercise. Takes metformin, long acting insulin, januvia Vaginitis 77964062 N76.0 if symptoms persist will do pap test and culture. [id number] Alva Jensen MD [facility] [address] [place] [address] 03/25/2020 09:45:24 03/27/2020 11:40:22 Hypothyroidism 27397969 E03.9 will continue thyroid supplement s Insulin tr eated type 2 diabetes mellitus 593652496 Z79.4 A1C 11.6 Vaginitis 18956723 N76.0 if symptoms persist will do pap test and culture. Mixed hyperlipidemia 267 982853 E78.2 discussed low fat, low carb diet, and encouraged exercise. Vitamin D deficiency 347 57229 E55.9 will treat empiricall y. [id number] Alva Jensen MD [facility] [address] [place] [address] 08/02/2020 10:03:52 08/05/2020 08:32:38 Gynecologic examination 45019818 Z01.419 Screening mammography 24 717496 Z12.31 Administra tion of influenza vaccine 28014395 Z23 Uncontroll ed type 2 diabetes mellitus 181135679 E11.65 Vaginitis 58211064 N76.0 pap test and culture obtained since not better with oral fluconazol e [id number] Alva Jensen MD [facility] [address] [place] [address] 03/18/2021 08:02:43 03/25/2021 13:27:28 Hypothyroidism 40786768 E03.9 will continue thyroid supplement s Vitamin D deficiency 347 80327 E55.9 will treat empiricall y. Mixed hyperlipidemia 267 742173 E78.2 discussed low fat, low carb diet, and encouraged exercise. Screening mammography 24 368238 Z12.31 Type 2 kia betes mellitus 33822621 E11.65 discussed diabetic diet and exercise. Takes metformin, long acting insulin, januvia [id number] Alva Jensen MD [facility] [address] [place] [address] 03/20/2021 10:12:22 03/31/2021 06:57:22 Chafing of skin 457503088 L30.4 Screening mammography 24 607875 Z12.31 Type 2 kia betes mellitus 58919860 E11.65 discussed diabetic diet and exercise. Takes metformin, long acting insulin Mixed hyperlipidemia 267 438430 E78.2 discussed low fat, low carb diet, and encouraged exercise. Hypothyroidism 72304656 E03.9 will continue thyroid supplement s Vitamin D deficiency 347 58154 E55.9 will treat empiricall y. Depression screening 171 777983 Z13.31 patient does not appear to be significan tly depressed. [id number] SYED RICE [facility] [address] [place] [address] 07/01/2021 11:20:41 07/02/2021 12:44:57 Mixed hyperlipidemia 636669606 E78.2 Has not taken cholestero l medication for along time as pharmacy has not given to her. wants refill Insulin tr eated type 2 diabetes mellitus 560436279 Z79.4 A1C 14.2. 03/2021, 11.2 in 2019.Has [...] wednesday with glucose numbers Papillary thyroid carcinoma [id number] C73 Patient just saw Dr Hodges at [facility] last week for thyroid f/u. No records from [facility] since 2018. signed record release today. Continue following Diabetes mellitus 371808 09 E11.9 refills-F/ u 2 weeks [id number] SYED RICE [facility] [address] [place] [address] 11/04/2021 16:22:50 11/10/2021 11:44:45 Vitamin D deficiency 66195439 E55.9 Mixed hyperlipidemia 267 004914 E78.2 Has not taken cholestero l medication for along time as pharmacy has not given to her. wants refill Insulin tr eated type 2 diabetes mellitus 192583417 Z79.4 A1C 14.2. 06/2021, 11.2 in 2019.Has [...] wednesday with glucose numbers Papillary thyroid carcinoma [id number] C73 Patient just saw Dr Hodges at [facility] last week for thyroid f/u. No records from [facility] since 2018. signed record release today. Continue following. has f/u in [facility]. Diabetes mellitus 089441 09 E11.9 refills-F/ u 2 weeks Administra tion of influenza vaccine 77361282 Z23 Overweight 315834496 E66 .3 [id number] SYED RICE [facility] [address] [place] [address] 12/24/2021 10:22:59 12/25/2021 09:59:42 Gynecologic examination 32501388 Z01.419 Patient c/o left breast pain on occasion. Has had bx of left breast lump and it was normal (2018). On bi-manual exam patient has severe pain over left ovary. no masses on palpation. US will be ordered pap done 2019 , normal- pap obtained- lmp 11/03/21 Screening mammography 24 472803 Z12.31 scheduled alreadypat ient had breast lump in 2018 and received diagnostic mammogram and biopsy. normal mamm and bx. Left lower quadrant pain 195884835 R10.32 Patient had terrible pain on bi-manual exam and I was unable to finish exam. Pain caused patient tears. Will obtain US [id number] SYED RICE [facility] [address] [place] [address] 11/27/2022 09:28:00 11/27/2022 10:10:46 Mixed hyperlipidemia 549703519 E78.2 needs refill Insulin tr eated type 2 diabetes mellitus 216019721 Z79.4 A1C 11.4% (11/2022) 14.2% (06/2021), 11.2% 2019. Adding jardianceH as not been controlled for long time and non-compla int with f.u visits.Janis t exam: normal 11/27/2022E ye Exam: sent referralAl b/Cr: orderedSta tin: atorvastat in 20mg, complaintA CEi:pneumo víctor vaccine: [id number] 11/2022 Papillary thyroid carcinoma [id number] C73 Patient follows Dr Hodges at [facility] see him in one month for US and f/u Overweight 255949209 E66 .3 BMI 26.9 Anemia 660157993 D64.9 anemia on chart review. work up Administra tion of pneumococcal vaccine 72128476 Z23 given today Screening for malignant neoplasm of colon 679145913 Z12.11 denies bloody/claudia k stools Screening mammography 24 116230 Z12.31 patient had breast lump in 2018 and received diagnostic mammogram and biopsy. normal mamm and bx. [id number] SYED RICE [facility] [address] [place] [address] 08/12/2023 14:52:37 08/12/2023 15:52:35 Screening mammography 57150231 Z12.31 patient had breast lump in 2018 and received diagnostic mammogram and biopsy. normal mamm and bx. Mixed hyperlipidemia 267 915658 E78.2 needs refill Insulin tr eated type 2 diabetes mellitus 707925564 Z79.4 following endo for management A1C 11.4% (11/2022) 14.2% (06/2021), 11.2% 2019. Adding jardiance insulin 35 am and pm, jardianceF oot exam: normal 11/27/2022E ye Exam: sent referralAl b/Cr: orderedSta tin: atorvastat in 40mg, complaintA CEi:pneumo víctor vaccine: 11/2022 Papillary thyroid carcinoma 761626597 C73 [address] Hodges at [facility] on last exam 07/2023 with endo Overweight 944877380 E66 .3 BMI 26.9 Anemia 884826107 D64.9 anemia on chart review. work up Screening for malignant neoplasm of colon 044178511 Z12.11 denies bloody/claudia k stools Administra tion of influenza vaccine 97286345 Z23 Insomnia 792282349 G47.0 0 Discussed sleep hygiene - no tv, electronic s in room- go to bed at joey time every night- Avoid eating 1-2 hours before bed- Do no have any caffeine after 3 pm- if unable to sleep she is to leave room and read for 15 minutes. May repeat this multiple times. Goal is not to associate room with anxiety or work [id number] Priyanka Lantigua DO [facility] [address] [place] [address] 09/08/2023 14:15:14 09/08/2023 15:12:35 Screening for malignant neoplasm of colon 265439467 Z12.11 First colonoscop y. No FH of colon cancer.CBC and CMP in chart 08/12/23 [id number] SYED RICE [facility] [address] [place] [address] 11/17/2023 16:22:47 11/25/2023 11:24:33 Screening mammography 07404276 Z12.31 patient had breast lump in 2018 and received diagnostic mammogram and biopsy. normal mamm and bx. Mixed hyperlipidemia 267 396223 E78.2 needs refill Insulin tr eated type 2 diabetes mellitus 123906552 Z79.4 start mealtime insulin againneeds to bring in Glucose logadvsied she contact endo today A1C 11.4% (11/2022) 14.2% (06/2021), 11.2% 2019. Adding jardiance insulin 35 am and pm, jardianceF oot exam: normal 11/27/2022E ye Exam: 08/2023, states normal [place] : orderedSta tin: atorvastat in 40mg, complaintp neumonia vaccine: 11/2022 Papillary thyroid carcinoma 886024230 C73 Patient follows [address] Hodges at [facility] on last exam 07/2023 with endo Overweight 593230210 E66 .3 BMI 26.9 Anemia 927618097 D64.9 anemia on chart review. work up Administra tion of influenza vaccine 10781004 Z23 given today Pain of le ft ankle joint 9268990948 9491066 M25.572 left ankle pain for some weeks with pain on palpation, no known MOIon exam swelling is anterior and appears puffy without brusign or skin changes normal ROM.limite d exam as patient was leaving when she mentions ankle pain [id number] SYED RICE [facility] [address] [place] [address] 12/27/2023 15:21:09 12/30/2023 10:22:35 Insulin treated type 2 diabetes mellitus 844621297 Z79.4 increase mealtime insulin to 5 unitsneeds to bring in Glucose logschedul ed for one more monthshe agrees to call if BG >200 A1C 11.4% (11/2022) 14.2% (06/2021), 11.2% 2019. Adding jardiance insulin 35 am and pm, jardianceF oot exam: normal 11/27/2022E ye Exam: 08/2023, states normal [place] : orderedSta tin: atorvastat in 40mg, complaintp neumonia vaccine: [id number] 11/2022 Overweight 125803278 E66 .3 BMI 27.5 [id number] LEONARDO KAUFMAN DPM [facility] ts [address] [place] [address] 01/14/2024 10:29:17 01/26/2024 08:31:58 Sprain of calcaneofibular ligament of left ankle joint 5192523811 9069087 S93.412A The sprained area was evaluated and [...] area Pain of le ft ankle joint 4109387483 4412145 M25.572 Diabetes mellitus 844877 09 E11.628 Patient was educated about the [...] Peroneal t endinitis of left lower limb 5553696954 32075 M76.72 The patient was educated regarding how [...] but conservati ve options were emphasized . [id number] LEONARDO KAUFMAN DPM [facility] [address] [address] 02/18/2024 16:20:31 02/21/2024 07:51:44 Sprain of calcaneofibular ligament of left ankle joint 3795621473 2612700 S93.412D The sprained area was evaluated and [...] area-per patient to obtain aso brace from [facility] on 02/22/24 Pain of le ft ankle joint 1029153193 3868586 M25.572 Diabetes mellitus 518978 09 E11.628 Patient was educated about the [...] Peroneal t endinitis of left lower limb 0783887659 63105 M76.72 The patient was educated regarding how [...] but conservati ve options were emphasized . [id number] SYED RICE [facility] [address] [place] [address] 03/14/2024 14:18:07 03/14/2024 16:14:42 Allergic conjunctivitis of bilateral eyes 1354474399 89278 H10.13 has had itching and watery eyes with sunglight sensitivit y since last wednesdayno pain on eye movementon exam normal EOMsmall pterygium b/l eyetrial allergy drops and f/u opthalmolo gist Insulin tr eated type 2 diabetes mellitus 971197962 Z79.4 she has not been taking medication [...] to bring in Glucose log (did not bring)sche duled for one more monthshe agrees to call if BG >200 A1C 10.1 (03/14/2024) 11.4% (11/2022) 14.2% (06/2021), 11.2% 2019. Adding jardiance insulin 35 am and pm, jardianceF oot exam: normal 11/27/2022E ye Exam: 08/2023, states normal [place] : orderedSta tin: atorvastat in 40mg, complaintp neumonia vaccine: [id number] 11/2022 Overweight 743400800 E66 .3 BMI 27.5 [id number] LEONARDO KAUFMAN DPM [facility] ts [address] [place] [address] 03/30/2024 15:48:57 04/10/2024 08:58:56 Sprain of calcaneofibular ligament of left ankle joint 5337590100 3089860 S93.412D The sprained area was evaluated and [...] area-per patient to obtain aso brace from [facility] on 02/22/24 Pain of le ft ankle joint 6960907173 0458769 M25.572 Diabetes mellitus 001750 09 E11.628 Patient was educated about the [...] Peroneal t endinitis of left lower limb 8270793052 07449 M76.72 The patient was educated regarding how [...] but conservati ve options were emphasized . [id number] Nura Belcher MD [facility] [address] [place] [address] 05/15/2024 15:48:24 05/20/2024 21:22:06 Insulin treated type 2 diabetes mellitus 890363919 Z79.4 following endo at this timeCatrina Quinonez PA-C [facility] [place]. next visit 05/19/2024 A1C 10.1 (03/14/2024) 11.4% (11/2022) 14.2% (06/2021), 11.2% 2019. Adding jardiance insulin 40 am and 20 pm, jardianceF oot exam: normal 11/27/2022E ye Exam: 08/2023, states normal [place] : orderedSta tin: atorvastat in 40mg, complaintp neumonia vaccine: [id number] 11/2022 Overweight 598174472 E66 .3 BMI 27.9 Iron defic iency anemia 66901774 D50.9 she is following obgyn but has not gotten anything to help with heavy periodsshe will call tomorrow to f/uwill monitor her anemia today Menorrhagia 902090421 N9 2.0 2-3 days of heavy bleedingfi lls a large pad in one hour [id number] Nura Belcher MD [facility] [address] [place] [address] 01/23/2025 16:04:20 01/23/2025 17:28:08 Insulin treated type 2 diabetes mellitus 074452239 Z79.4 following endo at this timeCatrina Quinonez PA-C [facility] [place]. A1C 9.0% (0. 1 (03/14/2024) 11.4% (11/2022) 14.2% (06/2021), 11.2% 2019. Adding jardiance insulin 40 am and 20 pm, jardianceF oot exam: normal 11/27/2022E ye Exam: 08/2023, states normal [place]Cr : orderedSta tin: atorvastat in 40mg, complaintp neumonia vaccine: [id number] 11/2022 Iron defic iency anemia 98120830 D50.9 she is following obgyn but has not gotten anything to help with heavy periodsshe will call tomorrow to f/uwill monitor her anemia today [id number] Nura Belcher MD [facility] [address] [place] [address] 03/12/2025 15:37:05 03/12/2025 17:01:12 Iron deficiency anemia 01729115 D50.9 she is following obgyn And recently had an IUD placed that is not helping much yet. She is advised to call OBGYN and tell her that she continues to bleed heavily. I will call in some more iron. I will check her iron and hemoglobin at this time. Hemoglobin remains 7 on below she will be sent back to the ER. [id number] Nura Belcher MD [facility] [address] [place] [address] 08/13/2025 08:45:10 08/13/2025 09:29:18 Insulin treated type 2 diabetes mellitus 503821260 Z79.4 She has been checking blood glucose levels at home. States readings are in the 130's in the morning. e agrees to call if BG >200A1C 11.4% (11/2022) 14.2% (06/2021), 11.2% 2019. insulin and jardianceF oot exam: normal. 08/13/25Eye Exam: Current. lb /Cr: orderedSta tin: atorvastat in 40mg, complaint Overweight 830640117 E66 .3 BMI 29.2 PHARMACY INFORMATICS SPECIALIST advised patient to follow a well balanced diet and obtain regular exercise. Informatio nal handout provided. Iron defic iency anemia 59893394 D50.9 No reports of bleeding heavily.We will check Iron panel today.Cont inues on FeroSul 325 mg po daily History an d physical examination, annual for health maintenance 58151684 Z00.00 [id number] Airam is a 48 YO HF pm hxz papillary thyroid cancer s/p resection, uncontroll ed diabetes, hyperlipid emia presenting for DM f/u. Overall she is doing well. She denies chest pain, shortness of breath, or palpitatio ns. She states her blood glucose levels at home have been running good. In the mornings they are around 135. She is needing surgical clearance today for upcoming eye laser surgery. She has an upcoming appt with the eye surgery center on 08/15/25 for Laser procedure. This is at [facility] in [place]. We will provide clearance today pending physical exam. We have clearance form provided and will complete for patient. BP: 121/69BMI: 29.2 Depression screening 171 061511 Z13.31 0904795 PHQ 9 score - 4 -Denies active suicidal or homicial thoughts. Denies history of suicidal or homicidal thoughts.- Denies anxiety or insomnia-P atient instructed to go to ER or call 911 or 988 for crisis (e.g., suicidal behaviors, suicidal ideations, intent or plan emerge). Additional ly, patient has suicide hotline #.-Advis ed patient to call clinic with questions Requires i nfluenza virus vaccination 698272118 Z23 9968983 Routine flu vaccine Vitamin D deficiency 347 99663 E55.9 -Recommend ed foods high in vitamin D including: Milk, fortified orange juice, yogurt, salmon, canned tuna, cod liver oil and cereals with vitamin D added-Amalia tor vitamin d levels oral replacemen t therapy - Vitamin D2 - 50,000 units once a week Screening mammography 24 451979 Z12.31 [id number] Due for routine screeningC ontinue monthly breast self exams Smoker 27970290 F17.200 924804 Education provided on importance of not smoking and health effects from smoking Health Concerns Section Related Observation LastModified by Organization Detai ls LastModified Time None Recorded Concern Status LastModified by Organization Details LastModified Time None Recorded Advance Directives Directive N: Payers Insurance Date Sequence Insurance Name Policy Number Policy Salgado Covered Member ID Salgado Member ID Guarantor Name 11/06/2022 1 *SELF PAY* Odalis Vargas 08/20/2020 SLIDING FEE SCHEDULE - DISCOUNT Airam Vargas 11/27/2022 SLIDING FEE SCHEDULE - DISCOUNT Airam Vargas 12/31/2017 SLIDING FEE SCHEDULE - DISCOUNT Airam Vargas 11/01/2015 SLIDING FEE SCHEDULE - DISCOUNT Airam Vargas 01/14/2018 1 *SELF PAY* Ve alicia Sam 01/14/2018 SLIDING FEE SCHEDULE - DISCOUNT Airam Sam 07/01/2021 1 [place] Airam Sam [id number] Airam Sam 07/01/2021 1 [place] Airam Vargas [id number] Airam Vargas 03/02/2022 1 [place] [facility] DEPARTMENT OF PUBLIC AID Airamnathalia Vargas [id number] Airam Sam 03/02/2022 1 [facility] (MEDICAID HMO) [id number] Airam Sam [id number] Airam Sam 11/27/2022 [facility] DEPT Airam Vargas [facility] Airamnathalia Vargas 11/06/2022 2 *SELF PAY* Ve alicia Sam 08/11/2025 1 [place] [facility] DEPARTMENT OF PUBLIC [facility] Airam Sam [id number] Airam Sam Notes Date Note Type Note Provider Name and Address Organization Details Recorded Time 03/30/2024 text/html Patient presents c/o sharp pain [...] sharp pain when walking LEONARDO KAUFMAN DPM [address] [place], [address], [place] [facility] 04/07/2024 17:38:11 05/15/2024 text/html here for f/u [...] will schedule. SYED RICE Attn: [employer], [place], [address], [place] [facility] 05/16/2024 16:23:30 01/23/2025 text/html here for f/u on uncontrolled DM Patient saw Grace Conway PA. She was taken off fast acting glucose and left on LA only. after meals her BG spikes >200. She continues to have heavy menstrual bleeding and will f/u with obgyn. She is given order for eye exam and says she will schedule. SYED RICE Attn: Accounting[address], [place], [address], [place] [facility] 02/04/2025 09:05:23 03/12/2025 text/html here for f/u on uncontrolled DM Patient was sent to ER after last visit for a hemoglobin of 7.She continues to have heavy menstrual bleeding and saw obgyn january 31 and Us showed fibroids. tranxex acid was given to patient but patient states it did not help her. She followed up February 12 And had IUD placed. she states she started her period the 01 of February and continues to bleed heavily today. She states the IUD has not started to help yet. She did take another pill that she was given and states it did slow down the bleed mildly. She is here to repeat iron studies. SYED RICE Attn: Accounting[address], [place], [address], [place] [facility] 03/12/2025 16:40:57 08/13/2025 text/html ROS as noted in the HPI Airam is a 48 YO HF pm hxz papillary thyroid cancer s/p resection, uncontrolled diabetes, hyperlipidemia presenting for DM f/u. Overall she is doing well. She denies chest pain, shortness of breath, or palpitations. She states her blood glucose levels at home have been running good. In the mornings they are around 135. She has an upcoming appt with the eye surgery center on 08/15/25 for Laser procedure. This is at [facility] in [place]. We will provide clearance today pending physical exam. We have clearance form provided and will complete for patient. flu: would like todayPrevnar 20 - 11/27/22Mammogram - 01/01Colonoscopy - 11/09/23 - diverticulosis smoker: occasional - cigarettes - encouraged her to decreaseETOH: noDrug use: no Pap: 12/10/23Sexually Active: Yesmammogram: 12/10/23 Eye: August 02, 2025Dental: May, Diet: WExercise: 2-3 times a week - she walks Rachael mae NP Attn: [address] [place], [address], [facility] - [facility] 08/13/2025 12:33:55 OBGyn Episode Ob Episode Information Episode Created Date Number of Fetuses Patient Bloodtype Patient rh Status Prepregnancy Weight lbs Domestic Partner Domestic Partner Phone Father Name Adding Machine Servicer Status 04/26/20 15 1 CLOSED Fetus Data First Name Last Name Admitted to NICU Weight (g) Sex Living Outcome Pediatric Complications Fetus ID Race Codes Race Delivery Type 3882.74 752 M Full Term [address]6319 Manas Calculation Initial Manas Date Initial Exam [...] Domestic Partner Domestic Partner Phone Father Name Adding Machine Servicer Status 04/26/20 15 1 CLOSED Fetus Data First Name Last Name Admitted to NICU Weight (g) Sex Living Outcome Pediatric Complications Fetus ID Race Codes Race Delivery Type 3288.54 2 F Full Term [address]4871 Manas Calculation Initial Manas Date Initial Exam [...] Domestic Partner Domestic Partner Phone Father Name Adding Machine Servicer Status 04/26/20 15 1 CLOSED Fetus Data First Name Last Name Admitted to NICU Weight (g) Sex Living Outcome Pediatric Complications Fetus ID Race Codes Race Delivery Type 3175.14 4 M Full Term 41124 Vaginal Manas Calculation Initial Manas Date Initial [...] Domestic Partner Domestic Partner Phone Father Name Adding Machine Servicer Status 04/26/20 15 1 CLOSED Fetus Data First Name Last Name Admitted to NICU Weight (g) Sex Living Outcome Pediatric Complications Fetus ID Race Codes Race Delivery Type 3315.75 752 F Full Term 85307 Manas Calculation Initial Manas Date Initial Exam [...] Domestic Partner Domestic Partner Phone Father Name Adding Machine Servicer Status 04/04/20 15 1 O Positive 110 Donavan Choudhary CLOSED Fetus Data First Name Last Name Admitted to NICU Weight (g) Sex Living Outcome Pediatric Complications Fetus ID Race Codes Race Delivery Type 06275 Problems Problem Notes Problem Name Start Date End Date Resolution Snomed Code Not e Milk of calcium calcification 995367960 Disorder of thyroid gland 1430 4000 Hyperlipidemia 90878204 Thyroid nodule 194747991 Uncontrolled type 1 diabetes mellitus 006096134 Candidiasis 72817349 Diabetes mellitus 27525857 Hypothyroidism 97727010 Vitamin D deficiency 54501584 Hyperemesis 144476931 Constipation 56703091 Type 1 diabetes mellitus 24045 009 Papillary thyroid carcinoma 25 2603639 Menorrhagia 609601566 Manas Calculation Initial Manas Date Initial Exam Date Initial Exam Provider Initial Ultrasound Date Last Menstrual Period Date Ultra Sound Weeks Gestation 10/08/2015 04/04/2015 [email or web address] 04/04/2015 01/01/2015 14 Eighteen To Twenty Week [...] Type Weight in lbs Pre/Post Dialysis Refused 138.547952834942 BP Diastolic BP Location Tested BP Systolic [...] Type Weight in lbs Pre/Post Dialysis Refused 137.377407337313 BP Diastolic BP Location Tested BP Systolic [...] Type Weight in lbs Pre/Post Dialysis Refused 141.53594084556 BP Diastolic BP Location Tested BP Systolic BP Type 50 90 sitting Fetus Heart Rate Present A 143 Present Fetus Movement A Yes Comments refill Lantus, Glyberide and levothyroid. Flowsheet Date 11/01/2015 Yost Score Blood Edema Fundus Height Fundus Units Glucose Ketones Leukocytes Nitrite Labor Signs Protein Cervic Dilation Cervic Effacement Cervic Station Type Weight in lbs Pre/Post Dialysis Refused 131.300987507503 BP Diastolic BP Location Tested BP Systolic BP Type 84 110 sitting Fetus Heart Rate Present Fetus Movement Comments Flowsheet Date 11/15/2015 Yost Score Blood Edema Fundus Height Fundus Units Glucose Ketones Leukocytes Nitrite Labor Signs Protein Cervic Dilation Cervic Effacement Cervic Station Type Weight in lbs Pre/Post Dialysis Refused 129.291763138322 BP Diastolic BP Location Tested BP Systolic BP Type 58 100 Fetus Heart Rate Present Fetus Movement Comments Flowsheet Date 12/06/2015 Yost Score Blood Edema Fundus Height Fundus Units Glucose Ketones Leukocytes Nitrite Labor Signs Protein Cervic Dilation Cervic Effacement Cervic Station Type Weight in lbs Pre/Post Dialysis Refused 129.227835599563 BP Diastolic BP Location Tested BP Systolic BP Type 62 96 sitting Fetus Heart Rate Present Fetus Movement Comments Flowsheet Date 01/28/2016 Yost Score Blood Edema Fundus Height Fundus Units Glucose Ketones Leukocytes Nitrite Labor Signs Protein Cervic Dilation Cervic Effacement Cervic Station Type Weight in lbs Pre/Post Dialysis Refused [id number] BP Diastolic BP Location Tested BP Systolic BP Type 60 100 sitting Fetus Heart Rate Present Fetus Movement Comments Flowsheet Date 05/18/2016 Yost Score Blood Edema Fundus Height Fundus Units Glucose Ketones Leukocytes Nitrite Labor Signs Protein Cervic Dilation Cervic Effacement Cervic Station Type Weight in lbs Pre/Post Dialysis Refused [id number] BP Diastolic BP Location Tested BP Systolic [...] At Estimated Date of Delivery false Thalassemia (Portuguese, Ukrainian, Mediterranean, Or Background): MCV < 80 false Neural Tube Defect (Meningom yelocele, Spina Bifida, Or Anencephaly) false Congenital Heart Defect false Down Syndrome false Jamal-Sachs (eg, Adventist, Cajun, [place]serratian-[place]) f alse Dvaid Disease false Sickle Cell Disease Or Trait [...] ed By 04/26/2015 Anticipated course of care [id number] 04/26/2015 Alcohol 04/26/2015 Intimate partner violence ishan [id number] 04/26/2015 Environmental/work hazards sarmad [id number] 04/26/2015 Screening for aneuploidy femi rrett27 04/26/2015 Nutrition counseling ; special diet; dietary precautions (mercury, listeriosis) [id number] 04/26/2015 Childbirth classes/h ospital facilities 04/26/2015 HIV and other routin e tests [id number] 04/26/2015 Risk factors identif ied by history [id number] 04/26/2015 Weight gain counseling mary ann ett27 04/26/2015 Exercise 04/26/2015 Teratogens [id number] 04/26/2015 Use of any medicatio ns (including supplements, vitamins, herbs, or OTC drugs) Medication list given [id number] 04/26/2015 04/26/2015 Sexual activity 04/26/2015 Tobacco/smoking cess ation counseling (ask, advise, assess, assist, and arrange) [id number] 04/26/2015 Illicit/recreational drugs Denies j 04/26/2015 Dental care 04/26/2015 Travel 04/26/2015 Seat belt use 04/26/2015 Indications for ultrasonography [id number] 04/26/2015 Avoidance of saunas or hot tubs shpulpbt36 04/26/2015 Toxoplasmosis precau tions (cats/raw meat) [id number] Second Trimester Discussed Date Discussion Item Discussion [...]
[2025-08-21 12:41] LABS: Iron 14 ug/dL (37-170); Percent Iron Saturation 4 % (20-50)
[2025-08-21 13:08] LABS: Ferritin 14.20 ng/mL (6.24-137)
== END 2025-08-21 11:35 | disposition home or self-care (01) ==
PROVIDERS: PCP Physician Assistant; Visit Provider Obstetrics & Gynecology
DX: D64.9 Anemia, unspecified (principal)
CPT/HCPCS: 36415; 82728; 83540; 83550; 85027

== ENCOUNTER 2025-09-25 15:21 | Outpatient (CLI) | payer MEDICAID, SELFPAY ==
[2025-09-25 16:24] LABS: Iron 314 ug/dL (37-170)
[2025-09-25 16:33] LABS: Percent Iron Saturation 89 % (20-50)
[2025-09-25 17:05] LABS: Ferritin 7.18 ng/mL (6.24-137)
--- OUTSIDE RECORDS SUMMARY | 2025-09-25 17:39 | XMS_ITS | Clinical Summary ---
Author Organization [facility] Address [address] [place] [address] Care Team Providers Care Diabetes Physician Name Role Phone Unavailable Primary Care Provider Unavailabl e Source Comments [facility],non-owned Affiliates and Associated Physician Practices is amultiple site organization consisting of ambulatory clinics and hospital sitesin [place], [place], [place] and [place]. This disclosure is being madepursuant to the Care Everywhere program and may not contain all information available regarding this patient. Last updated 18.[facility] Allergies No known active allergies Medications * Be aware that medications may not be up to date on this document. Alwaysverify current medications with the patient. insulin syringe-needle (BD ULTRAFINE II) 31G X 5/16 1 ML syringe 1 syringe BID. 100 syringe 2 8 Active Glucose Blood (BLOOD GLUCOSE TEST STRIPS) [facility] 5 Active ergocalciferol (DRISDOL) 1.25 MG (64880 UT) capsule Vitamin D2 1,250 mcg (50,000 unit) capsule TAKE 1 CAPSULE BY MOUTH SEMANAL Active Continuous Glucose Sensor (FreeStyle Grant 3 Sensor) [facility] USE TO CHECK BLOOD SUGAR. CHANGE EVERY [...] AT BEDTIME) NEEDED Active Sure Comfort [place] 31G X 5 MM needle USE TO INJECT INSULIN FIVE TIMES DAILY 5 Active TRUEplus 5-Bevel [place] 31G X 6 MM MISC USE DIRECTED TWO TIMES A DAY 4 Active empagliflozin (Jardiance) 25 MG tablet Take 1 (one) tablet by mouth once daily Active levothyroxine (Synthroid) 137 MCG tabletIndicati ons:Hypothyroi dism,Malignant Neoplasm of Thyroid Take 1 (one) tablet by mouth daily before breakfast Reasons: Cancer of Thyroid, Underactive Thyroid 90 tablet 4 5 09/11/20 26 Active levothyroxine (Synthroid) 137 MCG tabletIndicati ons:Hypothyroi dism,Malignant Neoplasm of Thyroid Take 1 (one) tablet by mouth daily before breakfast Reasons: Cancer of Thyroid, Underactive Thyroid 90 tablet 4 5 09/11/20 25 Discontin ued(Reord er) Active Problems Problem Noted Date Diagnosed Date [...] 10/28/2018 Unspecified lump in left breast, subareolar 04/0 03/2018 Diabetes mellitus 10/12/2017 senior living current use of insulin 10/12/2017 Other symptoms [...] Encounters Date Type Department Care Team Description 09/11/2025 10:08 AM INTEGRATION SPECIALIST - 09/11/2025 11:59 PM INTEGRATION SPECIALIST Hospital Encounter [facility] [address] [place] [address] Chirag Hodges MD Discharge Disposition: Home or Self Care 09/11/2025 9:00 AM INTEGRATION SPECIALIST Office Visit [facility] - Endocrinology [address], [place] [address] Chirag Hodges MD Postprocedural hypothyroidism (Primary Dx); Postoperative hypothyroidism; Papillary thyroid carcinoma (HCC); Malignant neoplasm of thyroid gland (HCC) 09/11/2025 Travel 08/07/2025 9:10 AM CDT - 08/07/2025 11:59 PM CDT Hospital Encounter [facility] [address] [place] [address] Chirag Hodges MD Discharge Disposition: Home or Self Care 08/07/2025 Travel from Last 3 Months Immunizations Immunization [...] on file Legal Sex Female 5:19 PM INTEGRATION SPECIALIST Gender Identity Not on file Sexual Orientation Not on file Last Filed Vital Signs Vital Sign Reading Time Taken Comments Blood Pressure 105/75 09/11/2025 9:05 AM INTEGRATION SPECIALIST Pulse 92 09/11/2025 9:05 AM INTEGRATION SPECIALIST Temperature 36.2 C (97.2 F) 01/24/2024 8:13 AM CDT Respiratory Rate 18 07/13/2023 11:24 AM CDT Oxygen Saturation 98% 09/11/2025 9:05 AM INTEGRATION SPECIALIST Inhaled Oxygen Concentration - - Weight 71.5 kg (157 lb 9.6 oz) 09/11/2025 9:05 A M INTEGRATION SPECIALIST Height 154.9 cm (5' 1) 09/11/2025 9:05 AM INTEGRATION SPECIALIST Body Mass Index 29.78 09/11/2025 9:05 AM INTEGRATION SPECIALIST Plan of Treatment Upcoming Encounters Date Type Department Care Team (Late st Contact Info) Description 03/18/2026 9:40 AM CDT Office Visit [facility] - Endocrinology [address] [place] [address], [place] [address] Chirag Hodges MD [address] [place] [address] Div [place] [address] Health Maintenance Due Date Last Done Comments [...] URINE PROTEIN SCREENING 10/11/2024 01/05/2018 COVID-19 VACCINE (3 - season) 2025 03/01/2021, 02/08/2021 INFLUENZA VACCINE (#1) [...] Diagnosis Comments THYROGLOBULIN BY CHARITY RFLXED Routine 09/11/2025 10:18 AM INTEGRATION SPECIALIST Postprocedural hypothyroidism Postoperative hypothyroidism Papillary thyroid carcinoma (HCC) Malignant neoplasm of thyroid gland (HCC) THYROGLOBULIN REFLEX PROFILE Routine 09/11/2025 10:18 AM INTEGRATION SPECIALIST Postprocedural hypothyroidism Postoperative hypothyroidism Papillary thyroid carcinoma (HCC) Malignant neoplasm of thyroid gland (HCC) TSH Routine 09/11/2025 10:18 AM INTEGRATION SPECIALIST Postprocedural hypothyroidism Postoperative hypothyroidism Papillary thyroid carcinoma (HCC) Malignant neoplasm of thyroid gland (HCC) IA US SOFT TISSUE HEAD & NECK REAL TIME IMGE DOCM Routine 09/11/2025 9:22 AM INTEGRATION SPECIALIST Postprocedural hypothyroidism Postoperative hypothyroidism Papillary thyroid carcinoma (HCC) Malignant neoplasm of thyroid gland (HCC) THYROGLOBULIN BY CHARITY RFLXED Routine 08/07/2025 9:33 [...] Maintenance Results * (ABNORMAL) THYROGLOBULIN REFLEX PROFILE (09/11/2025 10:18 AM INTEGRATION SPECIALIST) Only the most recent of2 resultswithin the time period is included. Thyroglobulin Antibody 9.0(H) 0.0 - 0.9 IU/mL 09/19/2025 3:07 AM INTEGRATION SPECIALIST [facility] ([facility]) Comment: Thyroglobulin Antibody measured by Betty Rylee Methodology It should be noted that the presence of thyroglobulin antibodies may not be pathogenic nor diagnostic, especially at very low levels. The assay acoustical tile carpenters supervisor has found that four percent of individuals without evidence of thyroid disease or autoimmunity will have positive TgAb levels up to 4 IU/mL. Blood BLOOD SPECIMEN / Unknown Lab Venipuncture / Unknown 09/11/2025 10:18 AM INTEGRATION SPECIALIST 09/11/2025 10:31 AM INTEGRATION SPECIALIST Narrative [facility] ([facility]) - 09/19/2025 3:07 AM INTEGRATION SPECIALIST Performed at: 01 - [place] [id number] [place], [place] [id number] Script Manager: Slava Carmona PhD, Phone: [phone] Chirag Hodges MD LAB - CHEMISTRY ORDERABLES Final Result Performing Organization Address City/[facility] Co de Phone Number [facility] ([facility]) [address] [place] [address] * THYROGLOBULIN BY CHARITY RFLXED (09/11/2025 10:18 AM INTEGRATION SPECIALIST) Only the most recent of2 resultswithin the time period is included. [facility] Thyroglobulin CHARITY 2.8 ng/mL 3:07 AM INTEGRATION SPECIALIST [facility] ([facility]) Comment: This test was developed and its performance characteristics determined by [facility]. It has not been cleared or approved [...] SPECIMEN / Unknown Lab Venipuncture / Unknown 09/11/2025 10:18 AM INTEGRATION SPECIALIST 09/11/2025 10:31 AM INTEGRATION SPECIALIST Narrative [facility] ([facility]) - 09/19/2025 3:07 AM INTEGRATION SPECIALIST Performed at: 02 - [place] [address] [place] [id number] Script Manager: Riley Henriquez MD, Phone: [phone] Chirag Hodges MD LAB - CHEMISTRY ORDERABLES Final Result [facility] ([facility]) [address] [place] [address], [facility] * TSH (09/11/2025 10:18 AM INTEGRATION SPECIALIST) Only the most recent of2 resultswithin the time period is included. TSH 0.988 0.350 - 4.940 uIU/mL 09/11/2025 11:22 AM INTEGRATION SPECIALIST [facility] Blood BLOOD SPECIMEN / Unknown Lab Venipuncture / Unknown 09/11/2025 10:18 AM INTEGRATION SPECIALIST 09/11/2025 10:34 AM INTEGRATION SPECIALIST us Chirag Hodges MD LAB - CHEMISTRY ORDERABLES Final Result [facility] [address] [place] [address], [place] [phone] * IA US SOFT TISSUE HEAD & NECK REAL TIME IMGE DOCM (09/11/2025 9:22 AM INTEGRATION SPECIALIST) Narrative Chirag Hodges MD - 09/11/2025 9:22 AM INTEGRATION SPECIALIST Chirag Hodges MD 09/11/2025 1:20 PM Ultrasound Of Thyroid Ultrasound of the Thyroid PHYSICIAN Chirag Hodges MD FELLOW NONE Test Date: 09/11/2025 Test Indication: Patient Active Problem List Diagnosis Date Noted Allergic rhinitis 10/28/2018 Priority: Not Prioritized Candidiasis 10/28/2018 Priority: Not Prioritized Hyperemesis 10/28/2018 Priority: Not Prioritized Hyperlipidemia 10/28/2018 Priority: Not Prioritized Iron deficiency anemia 10/28/2018 Priority: Not Prioritized Abnormal mammography 10/28/2018 Priority: Not Prioritized Menorrhagia 10/28/2018 Priority: Not Prioritized Missed period 10/28/2018 Priority: Not Prioritized Papillary thyroid carcinoma (HCC) 10/28/2018 Priority: Not Prioritized THYROID, TOTAL THYROIDECTOMY, PERM PATH, TOTAL THYROIDECTOMY (C): - PAPILLARY THYROID CARCINOMA, MULTIFOCAL, LARGEST FOCUS 3.3 CM o EXTRACAPSULAR EXTENSION NOT IDENTIFIED o LYMPHOVASCULAR INVASION NOT IDENTIFIED o pT2/pN1b - TWO PARATHYROID GLANDS (RIGHT INFERIOR AND LEFT SUPERIOR) Thyroid nodule 10/28/2018 Priority: Not Prioritized Type 1 diabetes mellitus (HCC) 10/28/2018 Priority: Not Prioritized Type I diabetes mellitus, uncontrolled 10/28/2018 Priority: Not Prioritized Vitamin D deficiency 10/28/2018 Priority: Not Prioritized Unspecified lump in left breast, subareolar 01/14/2018 Priority: Not Prioritized Diabetes mellitus (HCC) 10/12/2017 senior living current use of insulin (HCC) 10/12/2017 Other symptoms and signs involving the musculoskeletal system 12/25/2016 Anesthesia of skin 12/25/2016 Pain of left arm 12/25/2016 Postprocedural hypothyroidism 10/07/2016 Type 2 diabetes mellitus without complications (HCC) 10/01/2016 IMO 01/10/2025 IMO 07/11/2025 Malignant neoplasm of thyroid gland (HCC) 09/29/2016 Hypothyroidism 08/28/2016 Referring Physician: Dr. Galo primary care provider on file. Procedure Preformed: Ultrasound Only COMPARED TO : 07/13/2023 Nodule Size: THYROID GLAND SURGICALLY ABSENT LYMPH NODES IDENTIFIED RIGHT NECK LEVEL IIA 0.49 X 0.22 CM LEVEL VA 0.97 X 0.32 CM LEVEL III 0.80 X 0.30 CM LEVEL IV 0.79 X 0.33 CM WITH HILAR LINE LEFT NECK LEVEL VB 0.72 X 0.34 CM Echogenicity: NORMAL NECK Vascularity: NORMAL NECK Number of Nodules Present: SEE ABOVE Calcifications: NONE Borders: N/A ASSESSMENT BENIGN APPEARING LYMPH NODES EUTHYROID CLINICALLY NO CLINICAL EVIDENCE OF RECURRENT OR PERSISTENT THYROID TUMOR Recommendations: PLAN THYROID/NECK ULTRASOUND TODAY LAB SOON TSH AND TG MEDICATION LEVOTHYROXINE 137 MCG NEW PRESCRIPTION TO PHARMACY Instructions for taking levothyroxine Brand name is preferred Take thyroid pill all by itself Take thyroid pill one hour before food or 2 to 3 hours after food Heat, humidity, and direct sunlight will cause a loss of potency Never store thyroid pill in the bathroom RETURN IN SIX MONTHS DIET, EXERCISE AND WEIGHT LOSS FOR DIABETES MELLITUS AT LEAST ANNUAL DILATED EYE EXAMINATION FOR BONE HEALTH CALCIUM INTAKE 1000 MG DAILY, PRIMARILY FROM FOOD SOURCES VITAMIN D INTAKE 1000 UNITS DAILY Chirag Hodges MD Division of Endocrinology us Chirag Hodges MD PROCEDURE/MINOR SURGICAL OR DERABLES Final Result * HEMOGLOBIN A1C - POINT OF CARE (AMB) [facility] (01/11/2023) Hemoglobin A1c POCT 8.9 % BLOOD SPECIMEN / Unknown 01/11/2023 us Chirag Hodges MD LAB - POINT OF CARE ORDERAB LES Final Result * (ABNORMAL) BASIC METABOLIC PANEL (CALCIUM TOTAL) (04/06/2018 9:50 AM CDT) BUN 9 7 - 26 mg/dL 04/06/2018 12:16 PM [facility] Creatinine 0.9 0.6 - 1.2 mg/dL 04/06/2018 12:16 PM [facility] Sodium 133(L) 136 - 145 mmol/L 04/06/2018 12:16 PM [facility] Potassium 4.5 3.5 - 4.5 mmol/L 04/06/2018 12:16 PM [facility] Chloride 96(L) 98 - 107 mmol/L 04/06/2018 12:16 PM [facility] CO2 23 22 - 29 mmol/L 04/06/2018 12:16 PM [facility] Glucose 243(H) 70 - 115 mg/dL 04/06/2018 12:16 PM [facility] Calcium 9.2 8.4 - 10.2 mg/dL 04/06/2018 12:16 PM [facility] Anion Gap 19(H) 8 - 18 04/06/2018 12:16 PM [facility] BUN/Creatinine Ratio 10 7 - 23 04/06/2018 12:16 PM [facility] Osmolality Calculated 283 270 - 300 mOsm/kg 04/06/2018 12:16 PM [facility] eGFR >60 >60 mL/min/1.7 3 m2 04/06/2018 12:16 PM [facility] Blood BLOOD SPECIMEN / Unknown Lab Venipuncture / Unknown 04/06/2018 9:50 AM CDT 04/06/2018 11:10 AM CDT us Fabi Deutsch MD LAB - CHEMISTRY ORDERABLES F inal Result [place] [id number] [address] [phone] * MICROALB/CREAT RATIO URINE RANDOM PANEL (01/05/2018 10:31 AM CDT) Albumin Random Urine 5.0 Not Established mcg/mL [facility] Creatinine Urine 112 Not Established mg/dL [facility] Comment:Result obtained by beatriz holley. Urine Albumin/Creati nine Ratio 4 <30 mg/g [facility] Urine specimen (specimen) URINE / Unknown 01/05/2018 10:31 AM CDT 01/05/2018 11:48 AM CDT Fabi Deutsch MD LAB - URINE CHEMISTRY ORDERA BLES Final Result [facility] [address] [phone] from Last 3 Months or Most Recently Relevant to Health Maintenance Insurance MEDICAID - [place] MEDICAID [facility] [place] [id number]
--- OUTSIDE RECORDS SUMMARY | 2025-09-25 17:39 | XMS_ITS | Data Portability ---
Author Organization [facility] [place] Address [address] [place] [address] [place] [address] Assessment Encounter Date Assessment Date Assessment LastModified [...] performed today. We spent over 25 minutes irif-af-bapp. The patient was given precautions. She will [...] recorded. Referral gastroenter ologist referral 2023 024 [facility]astro[facility], [address], [address], [place], [address], 05:01:40 Procedures None recorded. Surgeries None recorded. Imaging US, pelvis 2023 024 [email or web address] [place], [address], [place], [address], 09:15:29 US, transvagina l 2023 024 [email or web address], [address], [place], [address], 09:15:26 US, pelvis, complete 2023 024 [address], [address], [place], [address], 4 13:47:04 Medication Orders None recorded. Patient TargetsNo targets recorded. Patient InstructionsNo instructions recorded. 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 Referring Physician: Satya Dahl DELIVERY AND MAIL SORTER, Encounter Date: 02/09/2024 Results Created Date Observation Date Name Description Value Unit Range Abnormal Flag Note LastModifiedBy Organization Detail LastModifiedTime 01/13/20 24 01/13/2024 CT/GC AND TRICH OMONA S VAGIN JAMES (RRNA ), SWAB chlamydia trachomatis, PCR Negati ve negati ve Not Available [facility] (Lab) [address], [place], [address], 01/14/2024 16:52:13 01/13/20 24 01/13/2024 CT/GC AND TRICH OMONA S VAGIN JAMES (RRNA ), SWAB neisseria gonorrhoeae, PCR Negati ve negati ve Not Available [facility] (Lab) [address], [place], [address], 01/14/2024 16:52:13 01/13/20 24 01/13/2024 CT/GC AND TRICH OMONA S VAGIN JAMES (RRNA ), SWAB trichomonas vaginalis ribosomal RNA (rrna) Negati ve negati ve Not Available [facility] (Lab) [address], [place], [address], 01/14/2024 16:52:13 01/20/20 24 01/20/2024 US, pelvi s No observ ation record ed. [email or web address] [address], [place], [address], 01/26/2024 11:38:39 01/20/20 24 01/21/2024 US, pelvi s No observ ation record ed. [facility] [address], [place], [address], 01/21/2024 17:50:46 01/20/20 24 01/21/2024 US, trans vagin al No observ ation record ed. [facility] [address], [place], [address], 01/21/2024 17:50:55 Result Notes None recorded. Procedures Surgical History Date Name Laterality Status Provider Name and Address Organization Details Recorded Time 4 Date of Last Mammogram completed [facility] 01/13/2024 17:33:05 4 Date of Last Colonoscopy completed [facility] 01/13/2024 17:34:33 6 Thyroid Surgery completed [facility] 01/13/2024 17:39:34 5 Caesarean Section completed [facility] 01/13/2024 17:39:18 8 Caesarean Section completed [facility] 01/13/2024 17:39:13 6 Caesarean Section completed [facility] 01/13/2024 17:39:09 4 Caesarean Section completed [facility] 01/13/2024 17:39:04 9 Ovarian Cystectomy completed [facility] 01/13/2024 17:40:09 Imaging Results None recorded. Procedure Notes None [...] Body mass index (BMI) Body weight Systolic And Diastolic Provider Name and Address Organization Details Last Updated DateTime 01/13/2024 154.94 cm 28 kg/m2 82832.67 g 133/81 mm[Hg] Marisel Carlo [facility] 01/13/2024 17:29:50 Date Recorded Body height Body mass index (BMI) Body weight Systolic And Diastolic Provider Name and Address Organization Details Last Updated DateTime 02/09/2024 154.94 cm 28.2 kg/m2 63379.26 g 145/83 mm[Hg] Diane Richardson [facility] 02/09/2024 16:06:01 Social History Question Answer Notes LastModified by Organizat ion Details LastModified Time Tobacco Smoking Status Never Smoker [facility] 01/13/2024 17:38:08 Are You Blind Or Do You Have [...] Sunscreen Routinely? No Information not available 01/13/2024 Do You Have Difficulty Walking Or Climbing Stairs? No Information not available 01/13/2024 Sex: Unknown Functional Status Question Answer Note LastModified by Organizat ion Details LastModified Time Do you use any illicit or recreational drugs? No Information not available 01/13/2024 What is your level of alcohol consumption? None Information not available 01/13/2024 Are you able to walk independently without assistance or assistive devices? YESWOREST Information not available 01/13/2024 Are you able to care for yourself independently? Yes Information not available 01/13/2024 Do you have difficulty dressing, bathing, grooming, or toileting? No Information not available 01/13/2024 Mental Status None recorded. Family History Relationship Description Onset Age of this Age Resolved Age Notes LastModified by Organization Details LastModified Time Father No current problems or disability Not available 01/12 17:37:50 Mother No current problems or disability Not available 01/12 17:37:50 Medical History Condition Response Diabetes Y Thyroid Problems Y Gynecological History Statement/Question Response Abnormal Pap [...] ICD10 Code Diagnosis IMO Codes Diagnosis Note [id number] RODOLFO [facility] [address] [address] 01/13/2024 17:16:07 02/03/2024 14:55:02 Pain in pelvis 99499414 R10.2 Today with the help of patients [...] and review of plan of care. Menorrhagia [id number] N9 2.0 We also discussed her menses.She does not feel her pain has increased by her heavy periods which have been heavier for at least 3yrs now.Would like to discuss options once US completed at her f/u visit. 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 given no R adnexa- [...] Recorded Advance Directives Directive None Recorded Payers Insurance Date Sequence Insurance Name Policy Number Policy Salgado Covered Member ID Salgado Member ID Guarantor Name 02/09/2024 1 [place] [facility] Airam Vargas [id number] Airam Vargas Notes Date Note Type Note Provider Name and Address Organization Details Recorded Time 01/13/2024 text/html Beer-Pelvic PainReported by PatientHPIFor location, patient reportsright (chronic pelvic pain >2yrs.lower pelvic pain in adnexal area described as sharp; stabbing or dull ache. always present. varies pain level 2-6 out of 10. feels the intensity of pain is increasing; worse with activity; and unable to lie on her right side b/c the pressure increases her discomfort.). For onset/timing, patient reports>6 months. For duration, patient reportspersistent. For quality, patient reportssharp,dull,st abbing,aching, andpressure.Heavy menses-wants to consider options to help with this. Neg pain of abd/flankNeg urinary sx'sNeg GI sx'sNeg N/V/F/C/DNeg Vag d/c, odor, irritation, itching Daughter present at visit to help with translation. RODOLFO Fermin- [address], [place], [address], [facility] 02/03/2024 14:11:36 02/09/2024 text/html Declined it technical support specialist. Donavan translating. Right sided pain x5 years, worsening over the past 2 years. Almost constant pain now. No relieving or aggravating factors. Having some constipation. No nausea or vomiting. No dysuria or hematuria. PMH: T2DM, hypothyroidism Follows with PCP for diabetes. Mildly good control. SATYA DAHL MD [address], [place], [address], [facility] 02/09/2024 18:21:02 OBGyn Episode Ob Episode Information Episode Created Date Number of Fetuses Patient Bloodtype Patient rh Status Prepregnancy Weight lbs Domestic Partner Domestic Partner Phone Father Name Psychiatric Orderly Status 01/13/20 24 1 CLOSED Fetus Data First Name Last Name Admitted to NICU Weight (g) Sex Living Outcome Pediatric Complications Fetus ID Race Codes Race Delivery Type Full Term 60523 Primary Manas Calculation Initial Manas Date Initial [...] Domestic Partner Domestic Partner Phone Father Name Psychiatric Orderly Status 01/13/20 24 1 CLOSED Fetus Data First Name Last Name Admitted to NICU Weight (g) Sex Living Outcome Pediatric Complications Fetus ID Race Codes Race Delivery Type Full Term 95432 Repeat Manas Calculation Initial Manas Date Initial [...] Domestic Partner Domestic Partner Phone Father Name Psychiatric Orderly Status 01/13/20 24 1 CLOSED Fetus Data First Name Last Name Admitted to NICU Weight (g) Sex Living Outcome Pediatric Complications Fetus ID Race Codes Race Delivery Type Full Term 83112 Repeat Manas Calculation Initial Manas Date Initial [...] Domestic Partner Domestic Partner Phone Father Name Psychiatric Orderly Status 01/13/20 24 1 CLOSED Fetus Data First Name Last Name Admitted to NICU Weight (g) Sex Living Outcome Pediatric Complications Fetus ID Race Codes Race Delivery Type Full Term 72097 Vaginal Delivery Manas Calculation Initial Manas Date [...] Domestic Partner Domestic Partner Phone Father Name Psychiatric Orderly Status 01/13/20 24 1 CLOSED Fetus Data First Name Last Name Admitted to NICU Weight (g) Sex Living Outcome Pediatric Complications Fetus ID Race Codes Race Delivery Type Full Term 16459 Repeat Manas Calculation Initial Manas Date Initial [...]
--- OUTSIDE RECORDS SUMMARY | 2025-09-25 17:39 | XMS_ITS | Clinical Summary ---
Author Organization [place] [id number] [facility] Address [address] [place] [address] Care Team Providers Care Career Advisor Name Role Phone Dian Salcido Primary Care Provider + No, Physician Unavailable Stuart Gamble MD PhD Unavailable [phone] Allergies No known active allergies Medications levothyroxine [...] Max daily DOSE 20 units 15 mL 5 Active Active Problems No known active problems Social History Tobacco Use Types Packs/Day Years Used Date Smoking Tobacco: Some Days Cigarettes Tobacco Cessation:Ready to Q uit: Not Asked; Counseling Given: Not Answered Comments Unknown Sex and Gender Information Value Date Recorded Sex Assigned at Not on file Legal Sex 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 Gender Identity Not on file Sexual Orientation [...] 07/18/2015 Pneumococcal vaccine <65 Completed 11/27/2022 Insurance Member Subscriber Plan / Payer (Ef fective 2022-Present) Name:Vargas Airam Relation to Subscriber:Self Name:Airam Vargas Payer ID:[id number] Group ID:Not on file Type:[place] Address: [place] [id number] Member Subscriber Plan / Payer (Ef fective 2022-Present) Name:Edie Vargasnica Relation to Subscriber:Self Name:Vargas Airam Payer ID:[id number] Group ID:Not on file Type:[place] Address: [place] [id number] [address] [id number] Care Teams Career Advisor Relationship Specialty Start Date End Date Dian Salcido PA PCP - General Physician Lock Master 12/23/22 No, Physician 12/23/22 Stuart Gamble MD PhD [address] [place] [address] Medical Oncologist/Central Service Tech Hematology 08/28/25
== END 2025-09-25 15:22 | disposition home or self-care (01) ==
PROVIDERS: PCP Physician Assistant; Visit Provider Obstetrics & Gynecology
DX: D64.9 Anemia, unspecified (principal); D50.9 Iron deficiency anemia, unspecified
CPT/HCPCS: 36415; 82728; 83540; 83550